=== PATIENT | female | born 1970 | race African-American/Black ===

== ENCOUNTER 2019-04-10 08:42 | Outpatient (CLI) | payer BC, SELFPAY ==
--- NOTE | 2019-04-10 08:49 | ECG_ITS ---
Measurements Intervals [place] Rate: 138 P: [place]: 0 QRS: 48 QRSD: 96 T: -10 QT: 312 QTc: 473 Interpretive Statements ATRIAL FIBRILLATION WITH RAPID VENTRICULAR RESPONSE CANNOT RULE OUT SEPTAL INFARCT, AGE INDETERMINATE BORDERLINE ST-T WAVE ABNORMALITY- INFERIOR LEADS BASELINE ARTIFACT- I ABNORMAL ECG Electronically Signed On 04-10-2019 10:29:47 [employer] by James Keller D.O.
[2019-04-10 09:44] LABS: Blood Urea Nitrogen 18 mg/dL (7-17); Calcium 9.5 mg/dL (8.4-10.2); Carbon Dioxide 30 mmol/L (22-30); Chloride 101 mmol/L (98-107); Estimated Glomerular Filt Rate > 60; Glucose 82 mg/dL (65-105); Potassium 3.5 mmol/L (3.4-5.0); Sodium 141 mmol/L (137-145)
== END 2019-04-10 08:43 | disposition home or self-care (01) ==
LOC: ANHSURGERY 08:49
PROVIDERS: Anesthesiology; PCP Family Medicine; Visit Provider Obstetrics & Gynecology
DX: N92.1 Excessive and frequent menstruation with irregular cycle (principal); Z79.899 Other long term (current) drug therapy; I10 Essential (primary) hypertension; R94.31 Abnormal electrocardiogram [ECG] [EKG]
CPT/HCPCS: 36415; 80048; 86850; 86900; 86901; 93005

== ENCOUNTER 2019-04-23 00:18 | Day surgery (SDC) | payer BC, SELFPAY ==
[2019-04-06 15:17] VITALS: BMI 34.2
[2019-04-23] VITALS (12 sets, daily range): BP systolic 94–134; BP diastolic 58–99; PULSE 54–89; RESP 12–20; TEMP 36.1–36.7; O2SAT 96–100
--- NOTE | 2019-04-23 10:50 | WPDANESEPPF ---
Anes - Initial Pre Proc Eval Procedure: Operation Date: 04/23/19 12:00 Proposed Procedures p Total Laparoscopic Hysterectomy With Bilateral Salpingectomy - Kira Vasquez MD Date/Time: 04/23/19 10:50 Surgeon: Kira Vasquez MD Pre Op Diagnosis: Menometrorrhagia/ Uterine Fibroids Patient Data Age: 49 Gender: F Height: 5 ft 11 in Weight: 113.4 kg Last Vital Signs Temp 36.6 C 04/23/19 10:23 Pulse 89 04/23/19 10:23 Resp 20 04/23/19 10:23 BP 134/99 H 04/23/19 10:23 Pulse Ox 100 04/23/19 10:23 Allergies Allergy/AdvReac Type Severity Reaction Status Date / Time No Known Allergies Allergy Verified 04/23/19 10:21 Home Medications Medication Instructions Recorded Confirmed Type amlodipine 5 mg PO DAILY 04/06/19 04/23/19 History lisinopril-hydrochlorothiazide 1 tablet PO DAILY 04/06/19 04/23/19 History Patient hx anesthesia problems: none Family hx anesthesia problems: none PMFSH Past Medical History Medical History Hypertension Obesity YAQUELIN (obstructive sleep apnea) Social History Social History Gender identity (if verbalized by the patient): Female Anes - Eval Final PreProcedure Day of Procedure 04/23/19 10:50 Patient weight: obese Heart: regular rate and rhythm Lungs: clear to auscultation Airway: Mallampati scale class II Neurological: alert and oriented Last oral intake: >/= 8 hours ASA classification: III Emergent: no Anesthetic plan: proceed Anesthesia type and monitoring: general ETT and standard monitoring Informed Consent: The patient's anesthetic plan and its attendant risks and benefits were discussed with the patient/family/POA. Questions were solicited and answers provided to the satisfaction of the patient/family/POA.
[2019-04-23] MEDS: LACTATED RINGERS 1,000 ML 30 ML IV CONT ×2 (10:56→14:45)
--- NOTE | 2019-04-23 12:02 | WPDHPUPDATE1 ---
History and Physical Update Update Date/Time: 04/23/19 12:02 History and Physical has been reviewed, including an updated exam of the patient. There are NO changes in the patient's condition. Risks, benefits, and alternatives have been discussed and questions answered. Patient agrees to proceed with procedure.
[2019-04-23] MEDS: ceFAZolin 2 GM/D5W 50 ML 2 GM/50 ML BAG IVPB (12:07)
[2019-04-23] MEDS: BUPIVACAINE/EPINEPHRINE 0.5% 10 ML VIAL INFILTRATE (12:54)
--- NOTE | 2019-04-23 14:26 | PM.OP ---
Procedure Note - Brief Procedure Note - Brief Date of procedure: 04/23/19 Pre-op diagnosis: Menometrorrhagia/ Uterine Fibroids Post-op diagnosis: same Procedure performed: TLH / bilateral salpingectomy Anesthesia: GETA Surgeon: Kira Vasquez MD Estimated blood loss (mL): 50 Drains: Yes ([place]) Pathology: yes Complications: No immediate complications Condition: stable Disposition: PACU Findings: Enlarged fibroid uterus; normal tubes, ovaries, appendix, liver, gall bladder
--- NOTE | 2019-04-23 14:27 | SUR.OPER ---
[id number]
--- NOTE | 2019-04-23 15:27 | SUR.PHASEI ---
[id number] sbar faxed floor notified. family apdated, and sent to room
--- NOTE | 2019-04-23 15:37 | OP_ITS ---
DATE OF PROCEDURE: 04/23/2019 PREOPERATIVE DIAGNOSES: Menometrorrhagia, fibroids. POSTOPERATIVE DIAGNOSES: Menometrorrhagia, fibroids. PROCEDURE PERFORMED: Total laparoscopic hysterectomy, bilateral salpingectomy. ANESTHESIA: General endotracheal tube. ESTIMATED BLOOD LOSS: 50 mL. COMPLICATIONS: None. FINDINGS: Enlarged fibroid uterus. Normal tubes, ovaries, liver, gallbladder, appendix. No significant pelvic adhesions. INDICATIONS: A 49-year-old with history of heavy irregular periods. She was found to have enlarged uterus with at least 1 fibroid measuring 6 cm. She was advised to proceed with hysterectomy and she did sign consent after the risks, benefits, complications, and alternatives were discussed for total laparoscopic hysterectomy with bilateral salpingectomy. DESCRIPTION OF PROCEDURE: For the procedure, she was taken to the operating room where general anesthesia was obtained. She was prepared and draped in the normal sterile fashion in the dorsal lithotomy position. Marcaine was injected infraumbilically and a 5 mm skin incision was made in the infraumbilical fold with a scalpel. A 5 mm non-bladed trocar was then placed with the camera in the trocar under direct visualization into the peritoneal cavity. Insufflation was begun and she was placed in Trendelenburg. A 10 mm trocar was then placed in the right lower quadrant under direct visualization and a 5 mm trocar in the left lower quadrant. Inspection of the pelvis revealed the findings as noted above. First, the right cornua was grasped. The right fallopian tube was grasped and transected near the insertion to the uterus. The right round ligament was transected and the bladder flap was created from the right side. The left fallopian tube was then transected near its insertion to the uterus, then the left round ligament. The bladder flap was created from the left meeting the flap from the right and the bladder was pushed down further with a laparoscopic Kittner. The left uterine artery was skeletonized, clamped, coagulated, and transected with excellent hemostasis visualized. Another couple of bites were taken down the broad ligament until the level of the uterosacral ligament had been reached. The right uterine artery was then skeletonized, clamped, coagulated, and transected and a couple of bites were taken down the broad ligament until the level of the uterosacral ligament had been reached. Both uterosacral ligaments were then divided. A sponge stick was placed in the vagina and pressed against the anterior cul-de-sac and a colpotomy incision was made against it using the Harmonic Scalpel. The vagina was then circumferentially incised hugging the cervix until the uterus was completely removed from the surrounding vaginal tissue. The uterus was pressed down as much as possible into the vaginal canal. Attention was then turned to the vagina where a speculum was placed. The uterus was grasped and traction was placed until the uterus was delivered through the vagina. A moist blue towel was then placed in the vagina to hold the pneumoperitoneum. Attention was then turned back to the abdomen. The right fallopian tube was grasped. The mesosalpinx was serially clamped and transected and then the same procedure was performed to remove the left fallopian tube. The pelvis was copiously irrigated. All operative sites were found to be hemostatic. The vaginal cuff was then closed using 0 Vicryl interrupted sutures placed laparoscopically. All operative sites were inspected once again and found to be hemostatic so the right lower quadrant trocar was removed. The Pravin-Yanira device was used along with a 0 Vicryl to close the fascia of the right lower quadrant incision. The pneumoperitoneum was allowed to escape. All trocars were rem
[2019-04-23] MEDS: ENOXAPARIN 40 MG/0.4 ML SYRINGE SUB-Q (20:46)
[2019-04-24 00:25] VITALS: BP 117/73; PULSE 66; RESP 17; TEMP 36.9
[2019-04-24 05:09] LABS: Basophils Percent Auto 0.1 % (0.2-1.2); Eosinophils Percent Auto 0.1 % (0-4.4); Hematocrit 32.7 % (37.0-47.0); Hemoglobin 10.6 g/dL (12.0-15.0); Immature Granulocyte Absolute 0.03 K/mm3 (0.00-0.031); Immature Granulocyte Percent A 0.2 % (0-0.5); Lymphocytes Absolute Auto 1.72 K/mm3 (0.9-3.2); Mean Corpuscular HGB Conc 32.4 g/dl (32-36); Mean Corpuscular Volume 83.4 fl (80-100); Mean Platelet Volume 9.3 fl (7.4-10.4); Monocytes Absolute Auto 0.8 K/mm3 (0.1-0.6); Monocytes Percent Auto 5.8 % (2.6-8.5); Neutrophils Absolute Auto 10.7 K/mm3 (1.3-6.7); Neutrophils Percent Auto 80.8 % (45.5-73.1); Platelet Count Result 354 k/mm3 (150-375); Red Blood Count 3.92 M/mm3 (4.2-5.4); Red Cell Distribution Width 16.8 % (11.5-14.5); White Blood Count 13.2 K/mm3 (4.5-10.0)
[2019-04-24 05:22] LABS: Blood Urea Nitrogen 15 mg/dL (7-17); Calcium 8.9 mg/dL (8.4-10.2); Carbon Dioxide 29 mmol/L (22-30); Chloride 96 mmol/L (98-107); Estimated CRCL calculation 83 ml/min; Estimated Glomerular Filt Rate > 60; Glucose 112 mg/dL (65-105); Potassium 3.2 mmol/L (3.4-5.0); Sodium 137 mmol/L (137-145)
[2019-04-24 05:25] VITALS: BP 129/70; PULSE 77; RESP 16; TEMP 36.8
--- NOTE | 2019-04-24 07:48 | PM.GYNPNOP ---
SALES VENDOR - A/P Postoperative Procedures: Procedures Operation Date: 04/23/19 12:00 Actual Procedures Side Surgeon p Total Laparoscopic Hysterectomy With Bilateral Salpingectomy Not Applicable Kira Vasquez MD Postoperative day: 1 (s/p hysterectomy) Postoperative status: doing well Postoperative plan: routine post-op care and discharge (and follow up in office in 1 week) Time Spent With Patient Time: Total time spent is greater than 50% in coordination of care (as documented) at patient's floor/unit and/or counseling patient: Time with patient: less than 15 minutes SALES VENDOR- PN:Subj Post-Op Subjective Date/time seen: 04/24/19 07:48 Subjective: patient has no complaints, pain is well controlled and other (Tolerating regular diet. + flatus. No void yet) Review of Systems Review of Systems: All systems reviewed & are unremarkable except as noted in HPI and below Exam Const: General: no acute distress Resp: Auscultation: clear to auscultation bilaterally Cardio: Rate: regular rate Rhythm: regular rhythm GI: Inspection: non-distended and incision (Intact without erythema, drainage, or induration) GI Palp: Yes abdominal tenderness (appropriate) and Yes Soft to palpation Extrem: General: no edema SALES VENDOR - PN: Obj Data Vital Signs Vital Signs: Vital Signs - 24 hr 04/23/19 10:23 04/23/19 14:35 04/23/19 14:50 Temperature 36.6 C 36.1 C L Pulse Rate 89 64 55 L Respiratory Rate 20 16 12 Blood Pressure 134/99 H 108/66 101/65 Pulse Oximetry 100 100 100 04/23/19 15:06 04/23/19 15:20 04/23/19 16:00 Temperature 36.7 C Pulse Rate 54 L 60 59 L Respiratory Rate 14 12 14 Blood Pressure 98/62 L 102/58 L 94/59 L Pulse Oximetry 98 100 04/23/19 16:15 04/23/19 16:30 04/23/19 17:00 Temperature Pulse Rate 64 66 62 Respiratory Rate 14 14 14 Blood Pressure 99/69 L 105/58 L 104/60 Pulse Oximetry 04/23/19 18:00 04/23/19 19:00 04/23/19 20:40 Temperature 36.7 C 36.7 C Pulse Rate 71 79 79 Respiratory Rate 14 17 Blood Pressure 111/59 L 107/65 101/60 Pulse Oximetry 96 04/24/19 00:25 04/24/19 05:25 Temperature 36.9 C 36.8 C Pulse Rate 66 77 Respiratory Rate 17 16 Blood Pressure 117/73 129/70 Pulse Oximetry Intake/Output Intake/Output: Intake & Output 04/21/19 04/22/19 04/23/19 04/24/19 23:59 23:59 23:59 23:59 Intake Total 1700 1000 Output Total 90 700 Balance 1610 300 Meds/Results Medications: Active Medications Generic Name Dose Route Start Last Admin Trade Name Freq PRN Reason Stop Dose Admin Hydrocodone Bitart/Acetaminophen 1 tab 04/23/19 15:35 Almond 5-325 Mg PO Q3H PRN Pain Rated 5 or Less Hydrocodone Bitart/Acetaminophen 1 tab 04/23/19 15:35 Almond 10-325 Mg PO Q3H PRN Pain Rated 6 or Greater Amlodipine Besylate 5 mg 04/24/19 09:00 Norvasc PO DAILY [facility] Enoxaparin Sodium 40 mg 04/23/19 20:00 04/23/19 20:46 Lovenox SUB-Q 40 mg DAILY [facility] Administration Hydrochlorothiazide 25 mg 04/24/19 09:00 Hydrochlorothiazide PO QAM [facility] Dextrose/Lactated Ringer's 1,000 mls @ 125 mls/hr 04/23/19 15:35 Dextrose 5%/Lactated Ringers IV CONT .Q8H [facility] Ibuprofen 600 mg 04/23/19 15:35 Motrin PO Q6H PRN Cramping Ketorolac Tromethamine 30 mg 04/23/19 15:35 Toradol Inj IV PUSH 04/28/19 15:36 Q6H PRN Pain Rated 4-6 Lisinopril 20 mg 04/24/19 09:00 Prinivil PO QAM [facility] Metoclopramide HCl 10 mg 04/23/19 15:35 Reglan IV PUSH Q6H PRN Nausea Morphine Sulfate 4 mg 04/23/19 15:35 Morphine Sulfate Inj IV PUSH Q4H PRN Pain Rated 7-10 Naloxone HCl 0.1 mg 04/23/19 15:35 Narcan IV PUSH Q2M PRN Respiratory rate less than 10 Ondansetron HCl 4 mg 04/23/19 15:35 Zofran Inj IV PUSH Q6H PRN Nausea Simethicone 80 mg 04/23/19 15:35 Mylicon PO Q2H PRN Gas Labs CBC & Chem 7: 04/24/19 05:03
[2019-04-24 07:50] VITALS: BP 134/87; PULSE 75; RESP 16; TEMP 37.2; O2SAT 97
[2019-04-24] MEDS: AMLODIPINE BESYLATE 5 MG TABLET PO (09:26)
[2019-04-24] MEDS: hydroCHLOROthiazide 25 MG TABLET PO (09:26)
[2019-04-24] MEDS: SIMETHICONE 80 MG TAB.CHEW PO ×2 (09:27→11:58)
[2019-04-24] MEDS: lisinopriL 20 MG TABLET PO (09:27)
--- NOTE | 2019-04-24 09:44 | WPDANESPN ---
Anes - Prog Note Post-Op Date/Time: 04/24/19 09:44 Cardiovascular status: normal Respiratory status: normal Airway patency: baseline Mental status: baseline Post-Op hydration status: normal Vital Signs: Last Vital Signs Temp 37.2 C 04/24/19 07:50 Pulse 75 04/24/19 07:50 Resp 16 04/24/19 07:50 BP 134/87 04/24/19 07:50 Pulse Ox 97 04/24/19 07:50 I/O: Intake & Output 04/23/19 04/24/19 04/24/19 23:59 07:59 15:59 Intake Total 1000 Output Total 700 Balance 300 Laboratory Tests 04/24/19 05:03 04/24/19 05:03 04/24/19 04/24/19 05:03 05:03 WBC 13.2 H RBC 3.92 L Hgb 10.6 L Hct 32.7 L MCV 83.4 MCH 27.0 MCHC 32.4 RDW 16.8 H Plt Count 354 MPV 9.3 Immature Gran % (Auto) 0.2 Neut % (Auto) 80.8 H Lymph % (Auto) 13.0 L [place] % (Auto) 5.8 Eos % (Auto) 0.1 Baso % (Auto) 0.1 L Lymph # (Auto) 1.72 [place] # (Auto) 0.8 H Eos # (Auto) 0.0 Baso # (Auto) 0.0 Abs Immat Gran (auto) 0.03 Absolute Neuts (auto) 10.7 H Absolute Nucleated RBC 0.0 Nucleated RBC % 0.0 Sodium 137 Potassium 3.2 L Chloride 96 L Carbon Dioxide 29 BUN 15 Creatinine 1.00 Estim Creat Clear Calc 83 Estimated GFR > 60 Glucose 112 H Calcium 8.9 Post-procedural complaints: none Patient Feedback: Patient satisfied with anesthetic care.
[2019-04-24 11:20] VITALS: BP 134/74; PULSE 94; RESP 18; TEMP 37.8; O2SAT 94
[2019-04-24 13:19] VITALS: TEMP 36.9
== END 2019-04-24 16:42 | disposition home or self-care (01) ==
LOC: ANHSURGERY 09:51 → ANHOB2 15:40
PROVIDERS: PCP Family Medicine; Visit Provider Obstetrics & Gynecology
PROC: 0UT9FZZ Resection of Uterus, Via Natural or Artificial Opening With Percutaneous Endoscopic Assistance (ICD-10-PCS; CPT 58552; principal; 2019-04-23 12:00)
DX: N92.1 Excessive and frequent menstruation with irregular cycle (principal); N72 Inflammatory disease of cervix uteri; D25.1 Intramural leiomyoma of uterus; N85.8 Other specified noninflammatory disorders of uterus; N83.8 Other noninflammatory disorders of ovary, fallopian tube and broad ligament; I10 Essential (primary) hypertension; G47.33 Obstructive sleep apnea (adult) (pediatric); E66.9 Obesity, unspecified; Z68.34 Body mass index [BMI] 34.0-34.9, adult
CPT/HCPCS: 58552; 36415; 80048; 85025; 88307; 99199; A9270; J0690; J1650; J2250; J2270; J2405; J2704; J2710; J3010; J7030; J7120

== ENCOUNTER 2020-09-20 10:59 | Inpatient (IN) | payer BC, SELFPAY ==
[2020-09-20] VITALS (17 sets, daily range): BP systolic 120–172; BP diastolic 80–128; PULSE 99–137; RESP 16–24; TEMP 36.3–37.2; O2SAT 96–99; BMI 34.7
--- NOTE | ~2020-09-20 | XR_ITS ---
EXAMINATION: XR chest 1V portable INDICATION: Cough and shortness of breath TECHNIQUE: Portable AP chest at 1139 hours COMPARISON: None available FINDINGS: Patchy bilateral airspace opacities are present, right greater than left. There is no pleur al effusion or pneumothorax. The cardiomediastinal silhouette is normal. IMPRESSION: 1. Patchy bilateral airspace opacities, consistent with atelectasis versus pneumonia. Reviewed, dictated and finalized at location A. IMPRESSION: 1. Patchy bilateral airspace opacities, consistent with atelectasis versus pneu monia.
--- NOTE | ~2020-09-20 | CT_ITS ---
EXAMINATION: CTA chest PE protocol DATE: 09/20/2020 13:29 INDICATION: Shortness of breath and cough TECHNIQUE: Computed tomography angiography (CTA) of the chest was performed with 100 mL Omnipaque-350 intravenous contrast timed to evaluate the pulmonary arteries. Coronal maximum intensity projection 3D-reconstructions were created by the technologist. The dose-length product (DLP) was 708.41 mGy-cm. Automated exposure control and iterative reconstruction technique were employed. COMPARISON: None. FINDINGS: The pulmonary arteries are well-opacified. No pulmonary embolism is identified. There is sm all to moderate size right pleural effusion. There is a small left pleural effusion. There is mild pa ssive atelectasis of the lower lobes. Mild atelectasis is also noted in the right middle lobe and floyd gula. There is no pneumothorax. Cardiomegaly is noted. There are areas of smooth interlobular septal thickening. There is mild thoracic spondylosis. No pathologically enlarged thoracic lymph nodes are s een. IMPRESSION: 1. No pulmonary embolism identified. 2. Small to moderate-sized right and small left pleural effusions. 3. Cardiomegaly with mild pulmonary edema. Reviewed, dictated and finalized at location A.
--- NOTE | 2020-09-20 11:09 | ECG_ITS ---
Measurements Intervals [place] Rate: 143 P: [place]: 0 QRS: 82 QRSD: 89 T: 35 QT: 324 QTc: 500 Interpretive Statements ATRIAL FIBRILLATION WITH RAPID VENTRICULAR RESPONSE ANTEROSEPTAL INFARCT, AGE INDETERMINATE BORDERLINE T WAVE ABNORMALITY- HIGH LATERAL LEADS BASELINE ARTIFACT- I, II, AVR, AVL, AVF ABNORMAL ECG Electronically Signed On 09-20-2020 12:05:14 CDT by James Keller D.O.
--- NOTE | 2020-09-20 11:34 | ED.GENADULT ---
HPI - General Adult General Chief complaint: Upper Respiratory Infection Stated complaint: cough Time Seen by Provider: 09/20/20 11:20 Source: patient and RN notes reviewed Mode of arrival: ambulatory Limitations: no limitations History of Present Illness HPI narrative: This is a 50 year old female with history of hypertension who presents for evaluation of cough and atrial fibrillation. Patient reports she has had nonproductive cough for 2 weeks. She also reports chest congestion and chest tightness. She reports she only has chest tightness when she is coughing. She is also short of breath only when she is having coughing spell. She tested negative for covid 6 days ago. She denies fever, chills, vomiting, diarrhea, abdominal pain, sore throat or headache. She went to [facility] today for evaluation. She reports she was found to have pneumonia on chest xray and her EKG revealed atrial fibrillation. She denies prior history of atrial fibrillation. She denies heart palpitations or fast heart rate. She denies leg swelling or calf pain. She takes antihypertensives and baby aspirin. Related Data Home Medications Medication Instructions Recorded Confirmed amlodipine 5 mg PO DAILY 04/06/19 09/20/20 hydrochlorothiazide 50 mg PO DAILY 09/20/20 09/20/20 losartan 100 mg PO DAILY 09/20/20 09/20/20 multivit with min-folic acid 1 tablet PO DAILY 09/20/20 09/20/20 [[facility]] Allergies Allergy/AdvReac Type Severity Reaction Status Date / Time No Known Allergies Allergy Verified 09/20/20 11:27 Review of Systems Review of Systems: All systems reviewed & are unremarkable except as noted in HPI and below Constitutional: Constitutional: Denies chills and Denies fever(s) Cardiovascular: Cardiovascular: Reports chest pain, Reports rapid heart rate and Denies radiating jaw, neck or arm pain Respiratory: Respiratory: Reports cough, Reports dyspnea and Denies wheezing Gastrointestinal: Gastrointestinal: Denies abdominal pain, Denies diarrhea, Reports nausea and Denies vomiting Neurologic: Denies dizziness and Denies headache(s) [facility] Past Medical History Medical History (Updated 09/20/20 @ 18:04 by Charo Causey MD) Admission for tubal ligation Hypertension Hypertension Miscarriage Obesity YAQUELIN (obstructive sleep apnea) Surgical History Surgical History H/O dilation and curettage H/O: hysterectomy [place] teeth removed Family History Family History Other Carcinoma of colon Other Cerebrovascular accident Sibling Diabetes mellitus Mother Hypertension Social History Social History (Updated 09/20/20 @ 17:14 by Vicki Lazcano NP) Social History: 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 She is single and has 1 child. She is a lifelong nonsmoker. She rarely drinks alcohol. She does not have a durable power trademark attorney. the patient is listed as a full code. Smoking status: Never smoker Alcohol intake: current Drinks per week: 1 Substance use: never Last use: occasionally Gender identity (if verbalized by the patient): Female Spiritual care concerns: No Exam Const: General: no acute distress and alert Orientation/consciousness: patient oriented x3 Eyes: EOM: EOMs intact bilaterally Chest: Chest palpation & inspection: normal inspection of the chest Resp: Effort & Inspection: normal respiratory effort and no retractions Auscultation: clear to auscultation bilaterally Cardio: Rate: tachycardic Rhythm: abnormal rhythm irregularly irregular Heart sounds: no murmurs GI: GI Palp: Yes Soft to palpation, No Tenderness to palpation present (GI) and No Guarding due to palpation present (GI) Auscultation: normal bowel sounds Skin: General skin exam: normal color Rashes: no rashes Neuro: General: patient oriented x3, moves all extremit
[2020-09-20] MEDS: dilTIAZem HCl INJ 25 MG/5 ML VIAL 10 MG IV PUSH (11:45)
[2020-09-20 11:50] LABS: Basophils Absolute Auto 0.1 K/mm3 (0.0-0.1); Basophils Percent Auto 0.6 % (0.2-1.2); Eosinophils Absolute Auto 0.1 K/mm3 (0-0.3); Eosinophils Percent Auto 0.7 % (0-4.4); Hematocrit 40.5 % (37.0-47.0); Hemoglobin 12.8 g/dL (12.0-15.0); Immature Granulocyte Absolute 0.02 K/mm3 (0.00-0.031); Immature Granulocyte Percent A 0.2 % (0-0.5); Lymphocytes Absolute Auto 2.44 K/mm3 (0.9-3.2); Lymphocytes Percent Auto 25.3 % (18.3-44.2); Mean Corpuscular HGB Conc 31.6 g/dl (32-36); Mean Corpuscular Hemoglobin 28.4 pg (26-34); Mean Platelet Volume 9.6 fl (7.4-10.4); Monocytes Absolute Auto 0.6 K/mm3 (0.1-0.6); Monocytes Percent Auto 6.5 % (2.6-8.5); Neutrophils Absolute Auto 6.4 K/mm3 (1.3-6.7); Neutrophils Percent Auto 66.7 % (45.5-73.1); Platelet Count Result 393 k/mm3 (150-375); Red Cell Distribution Width 14.2 % (11.5-14.5); White Blood Count 9.6 K/mm3 (4.5-10.0)
[2020-09-20 11:59] LABS: Anion Gap 8 mmol/L (8-16); Blood Urea Nitrogen 14 mg/dL (7-17); Calcium 9.4 mg/dL (8.4-10.2); Carbon Dioxide 27 mmol/L (22-30); Chloride 106 mmol/L (98-107); Estimated CRCL calculation 75 ml/min; Estimated Glomerular Filt Rate > 60; Glucose 101 mg/dL (65-110); Potassium 3.2 mmol/L (3.4-5.0); Sodium 141 mmol/L (137-145)
[2020-09-20 12:01] LABS: Prothrombin Time 13.1 Seconds (11.1-14.7)
[2020-09-20 12:02] LABS: Alanine Aminotransferase 40 U/L (4-35); Albumin Level 4.2 g/dL (3.5-5.1); Alkaline Phosphatase 95 U/L (38-126); Aspartate Amino Transferase 34 U/L (14-36); Bilirubin,Total 0.8 mg/dL (0.2-1.3); CRP 0.7 mg/dL (<1.0); Partial Thromboplastin Time 29.3 SECONDS (22.3-36.8)
[2020-09-20 12:05] LABS: D Dimer 0.62 ug/mL (<0.48)
[2020-09-20 12:12] LABS: NT Pro B Type Natriuretic Pept 1450 pg/mL (5-100); Troponin I < 0.012 ng/mL (0.000-0.034)
[2020-09-20] MEDS: FUROSEMIDE INJ 40 MG/4 ML VIAL IV PUSH (15:14)
[2020-09-20] MEDS: ENOXAPARIN 120 MG/0.8 ML SYRINGE 115 MG SUB-Q (15:14)
[2020-09-20] MEDS: POTASSIUM CHLORIDE 20 MEQ TABLET 40 MEQ PO (15:22)
--- NOTE | 2020-09-20 17:00 | ADMGEN ---
This patient, Antonella Lugo, was admitted to IMU Room 209-01. Patient/family oriented to hospital policies and general routines including ID bracelet, bed and alarms, visiting hours, pain management, procedures, bathroom and other care routines, personal items, smoking policy, room service/diet, and visiting hours. Information on how to activate the Rapid Response Team has been discussed. Patient/Family are encouraged to report perceived risks to care and to ask questions if they do not understand what they are told or what they should do.
--- NOTE | 2020-09-20 17:02 | PM.IMHP ---
H&P: HPI History of Present Illness Date/Time: 09/20/20 17:02Thilaura is a 50-year-old female patient has a history of hypertension. The patient states that she does not always take her medication like she should that her blood pressure may be higher than normal. The patient has had a productive cough for last 2 weeks. She has had no previous history of congestive heart failure heart disease. The patient reports that she now has chest congestion and chest tightness. She has not had any fever chills just a coughing. She short of breath when she has is coughing spell. The patient has had her complete COVID 19 vaccine. The patient tested negative for COVID-19 6 days ago. Patient went to urgent care today and she reports that they found pneumonia on the chest x-ray near EKG revealed atrial fibrillation. The patient stated that she felt like she had been in atrial fibrillation before when she had her hysterectomy. After reviewing the EKG from 04/10/2019 it looks like she had AFib with rapid ventricular response at that time. The patient is having no chest pain at this time. Her BNP is 1450. Chest CTA no pulmonary emboli small to moderate size right and small left pleural effusions. Cardiomegaly with mild pulmonary edema. Chest x-ray patchy bilateral airspace opacities consistent with atelectasis versus pneumonia. D-dimer 0.62. Potassium 3.2. Creatinine 1.1. BNP 1450. The patient was started on a Cardizem drip and given IV Lasix. She was also given subcu Lovenox and a potassium pill for the low potassium. Cardiology has been consulted. She is being admitted to IMU observation status on the date of service 09/20/2020. Chief Complaint: cough Review of Systems Review of Systems: All systems reviewed & are unremarkable except as noted in HPI and below Constitutional: Constitutional: Reports as per HPI and Reports no additional constitutional complaints Eyes: Eyes: Reports as per HPI and Reports no additional eye complaints ENT: Reports system reviewed and no additional complaints, except as documented and Reports Normal hearing present Cardiovascular: Cardiovascular: Reports no additional cardiovascular complaints Respiratory: Respiratory: Reports no additional respiratory complaints and Reports no additional respiratory complaints Gastrointestinal: Gastrointestinal: Reports as per HPI and Reports no additional gastrointestinal complaints Musculoskeletal: Musculoskeletal: Reports no additional musculoskeletal complaints Integumentary/Breasts: Skin/Breast: Reports system reviewed and no additional complaints, except as docu and Reports as per HPI Neurologic: Reports system reviewed and no additional complaints, except as documented, Reports as per HPI and Reports Normal hearing present Psychiatric: Psychiatric: Reports no additional psychiatric complaints and Reports as per HPI Endocrine: Endocrine: Reports no additional endocrine complaints Hematologic/Lymphatic: Hematologic/Lymphatic: Reports no additional hematologic/lymphatic complaints Allergic/Immunologic: Allergic/Immunologic: Reports no additional allergic/immunologic complaints [facility] Past Medical History Medical History (Updated 09/20/20 @ 17:11 by Vicki Lazcano NP) Admission for tubal ligation Hypertension Hypertension Miscarriage Obesity YAQUELIN (obstructive sleep apnea) Surgical History Surgical History H/O dilation and curettage H/O: hysterectomy [place] teeth removed Family History Family History Other Carcinoma of colon Other Cerebrovascular accident Sibling Diabetes mellitus Mother Hypertension Social History Social History (Updated 09/20/20 @ 17:14 by Vicki Lazcano NP) Social History: 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 She is single and has 1 child. She is a lifelong nonsmoker. She rarely drinks alcohol. She does not
[2020-09-21] VITALS (24 sets, daily range): BP systolic 117–132; BP diastolic 67–96; PULSE 66–111; RESP 11–20; TEMP 36.1–37; O2SAT 94–100
[2020-09-21] MEDS: ENOXAPARIN 120 MG/0.8 ML SYRINGE 115 MG SUB-Q ×2 (03:41→18:36)
[2020-09-21 05:21] LABS: Basophils Percent Auto 0.5 % (0.2-1.2); Eosinophils Absolute Auto 0.1 K/mm3 (0-0.3); Eosinophils Percent Auto 1.8 % (0-4.4); Hematocrit 38.9 % (37.0-47.0); Hemoglobin 12.6 g/dL (12.0-15.0); Immature Granulocyte Absolute 0.02 K/mm3 (0.00-0.031); Immature Granulocyte Percent A 0.3 % (0-0.5); Lymphocytes Absolute Auto 2.51 K/mm3 (0.9-3.2); Lymphocytes Percent Auto 32.3 % (18.3-44.2); Mean Corpuscular HGB Conc 32.4 g/dl (32-36); Mean Corpuscular Hemoglobin 28.5 pg (26-34); Mean Platelet Volume 9.8 fl (7.4-10.4); Monocytes Absolute Auto 0.5 K/mm3 (0.1-0.6); Monocytes Percent Auto 6.7 % (2.6-8.5); Neutrophils Absolute Auto 4.6 K/mm3 (1.3-6.7); Neutrophils Percent Auto 58.4 % (45.5-73.1); Platelet Count Result 381 k/mm3 (150-375); Red Blood Count 4.42 M/mm3 (4.2-5.4); Red Cell Distribution Width 14.1 % (11.5-14.5); White Blood Count 7.8 K/mm3 (4.5-10.0)
[2020-09-21 05:33] LABS: Alanine Aminotransferase 41 U/L (4-35); Albumin Level 3.9 g/dL (3.5-5.1); Alkaline Phosphatase 90 U/L (38-126); Anion Gap 7 mmol/L (8-16); Aspartate Amino Transferase 41 U/L (14-36); Bilirubin,Total 0.8 mg/dL (0.2-1.3); Blood Urea Nitrogen 13 mg/dL (7-17); Calcium 9.3 mg/dL (8.4-10.2); Carbon Dioxide 29 mmol/L (22-30); Chloride 104 mmol/L (98-107); Estimated CRCL calculation 82 ml/min; Estimated Glomerular Filt Rate > 60; Glucose 99 mg/dL (65-110); Magnesium 2.1 mg/dL (1.6-2.3); Potassium 3.2 mmol/L (3.4-5.0); Sodium 140 mmol/L (137-145)
--- NOTE | 2020-09-21 07:57 | PM.IMPN ---
Progress Note: A&P Assessment and Plan (1) Pulmonary edema: Code(s): J81.1 - Chronic pulmonary edema Status: Acute Assessment and Plan: Continue with IV Lasix. An echo has been ordered. Cardiology consult has been placed. (2) Atrial fibrillation with RVR: Code(s): I48.91 - Unspecified atrial fibrillation Status: Acute Assessment and Plan: Continue with diltiazem drip and continue with Lovenox. Echo has been ordered. Cardiology has been consulted (3) YAQUELIN (obstructive sleep apnea): Code(s): G47.33 - Obstructive sleep apnea (adult) (pediatric) Status: Acute Assessment and Plan: auto titrate for home CPAP (4) Hypertension: Code(s): I10 - Essential (primary) hypertension Status: Acute Assessment and Plan: continue with amlodipine losartan and hydrochlorothiazide. Subjective Date/time seen: 09/21/20 07:57 Review of Systems Review of Systems: All systems reviewed & are unremarkable except as noted in HPI and below Objective Data Vital Signs Vital Signs: Vital Signs - 24 hr 09/20/20 11:20 09/20/20 11:46 09/20/20 11:48 Temperature 37.2 C Pulse Rate 129 H 137 H 121 H Respiratory Rate 16 20 Blood Pressure 172/128 H 162/112 H 162/112 H Pulse Oximetry 98 98 09/20/20 12:10 09/20/20 12:44 09/20/20 13:42 Temperature 36.3 C L Pulse Rate 106 H 106 H 115 H Respiratory Rate 20 20 24 H Blood Pressure 130/112 H 120/100 H 151/103 H Pulse Oximetry 99 98 98 09/20/20 14:36 09/20/20 15:54 09/20/20 16:13 Temperature Pulse Rate 109 H 104 H 106 H Respiratory Rate 16 20 20 Blood Pressure 156/107 H 153/115 H 141/101 H Pulse Oximetry 99 98 99 09/20/20 16:21 09/20/20 18:00 09/20/20 18:26 Temperature 36.5 C Pulse Rate 109 H 118 H 108 H Respiratory Rate 20 20 Blood Pressure 141/101 H 151/100 H Pulse Oximetry 98 96 09/20/20 20:00 09/20/20 22:00 09/20/20 22:09 Temperature 36.3 C L Pulse Rate 99 110 H 107 H Respiratory Rate 20 Blood Pressure 128/85 Pulse Oximetry 96 09/20/20 23:18 09/20/20 23:40 09/21/20 00:00 Temperature 36.4 C Pulse Rate 105 H 112 H 108 H Respiratory Rate 18 20 Blood Pressure 124/80 Pulse Oximetry 97 98 09/21/20 02:00 09/21/20 03:54 09/21/20 04:00 Temperature 36.1 C L Pulse Rate 104 H 103 H 100 Respiratory Rate 18 Blood Pressure 131/94 H Pulse Oximetry 100 09/21/20 04:13 09/21/20 06:00 09/21/20 06:11 Temperature Pulse Rate 66 93 100 Respiratory Rate 11 L Blood Pressure Pulse Oximetry 96 09/21/20 07:01 Temperature 36.2 C L Pulse Rate 104 H Respiratory Rate 20 Blood Pressure 132/96 H Pulse Oximetry 100 Intake/Output Intake/Output: Intake & Output 09/18/20 09/19/20 09/20/20 09/21/20 23:59 23:59 23:59 23:59 Intake Total 430 Output Total 550 Balance 430 -550 Meds/Results Medications: Active Medications Generic Name Dose Route Start Last Admin Trade Name Freq PRN Reason Stop Dose Admin Amlodipine Besylate 5 mg 09/21/20 09:00 Amlodipine Besylate 5 Mg Tablet PO DAILY IAN Enoxaparin Sodium 115 mg 09/21/20 04:00 09/21/20 03:41 Enoxaparin 120 Mg/0.8 Ml Syringe SUB-Q 115 mg Q12H IAN Administration Furosemide 40 mg 09/21/20 09:00 Furosemide Inj 40 Mg/4 Ml Vial IV PUSH DAILY IAN Hydrochlorothiazide 50 mg 09/21/20 09:00 Hydrochlorothiazide 25 Mg Tablet PO DAILY IAN Acetaminophen 1,000 mg in 100 mls @ 400 mls/hr 09/20/20 15:25 Ofirmev 1,000 Mg Ivpb IVPB 09/21/20 15:26 Q6H PRN Mild Pain (1-3) or Fever Diltiazem HCl 100 mg in 100 mls @ 10 mls/hr 09/21/20 06:00 09/21/20 06:11 Cardizem 100 Mg/D5w 100 Ml IV CONT 10 mg/hr .Q10H IAN 10 mls/hr Administration 10 MG/HR Losartan Potassium 100 mg 09/21/20 09:00 Losartan Potassium 100 Mg Tablet PO DAILY IAN Multivitamins/Minerals 1 tablet 09/21/20 09:00 Multivits W-Fe,Min Chewable
--- NOTE | 2020-09-21 09:49 | PM.CNCAR ---
Assessment and Plan Assessment and plan (1) Atrial fibrillation with RVR: Code(s): I48.91 - Unspecified atrial fibrillation Status: Acute Assessment and Plan: Paroxysmal atrial fibrillation with rapid ventricular response presenting with evidence of mild decompensated heart failure diastolic possible systolic otherwise unaware of atrial fibrillation presenting with shortness of breath, elevated BNP, pulmonary vascular congestion on chest imaging. TSH 3.460. - atrial fibrillation 1st noted in setting of hysterectomy favor 2019. Patient did not have directed follow-up, medical therapy, anticoagulation nor did she see a station operator thereafter. Therefore, further details with regards to the initial episode and ultimate duration of her atrial fibrillation remain entirely unknown. She states she was unaware of her atrial fibrillation at that time as well. Discussed pathophysiology of atrial fibrillation, embolic stroke risk, medical management, MALLY guided cardioversion to restore sinus rhythm in context of rate versus rhythm control strategies. Patient agreeable to rhythm control with MALLY guided cardioversion likely with the assistance of Anesthesiology given YAQUELIN. Will need to ensure adequate heart failure status intolerance prior to proceeding.--MALLY/CV tomorrow likely with Anesthesiology if possible to restore SR. MALLY needed to rule out intracardiac thrombus prior to CV as duration of A.Fib unknown. We also discussed importance of longer-term systemic anticoagulation due to her stroke risk and recurrent atrial fibrillation moving for with oral anticoagulation. Will have care coordination rasmussen Eliquis or Xarelto. Least expensive option warfarin with goal INR of 2-3. -Telemetry -Will wean IV diltiazem off. Reduce to 5 milligrams/hour, initiate metoprolol tartrate 25 mg p.o. Q 8 our 1st dose now. Wean diltiazem his heart rate control up titration of metoprolol as BP and heart rate allows. -Systemic anticoagulation with enoxaparin 1 milligram/kilogram subcutaneous q.12 hours for now. Will transition to oral anticoagulation regimen. CHADS 2 Vasc score 2-3 (CHF if CM identified) Systemic anticoagulation advised for adequate stroke risk reduction given recurrent atrial fibrillation. Patient denies bleeding complications, recent falls or head injury or other contraindications. -If MALLY/CV may forego 2D Echo. Explained risks, benefits, alternatives to MALLY guided cardioversion including respiratory failure, stroke, aspiration. Patient understands and agrees. -Will need negative COVID swab prior to MALLY/CV. If +COVID, rate control strategy will be pursued. (2) CHF (congestive heart failure): Code(s): I50.9 - Heart failure, unspecified Status: Acute Assessment and Plan: As above, elevated BNP, pulmonary vascular congestion on chest x-ray and symptoms suggestive of CHF at presentation. Precise etiology unclear possible tachycardia induced cardiomyopathy due to longer duration uncontrolled AFib. IV Lasix 40 mg daily for now. Likely will be able to transition to oral regimen within the next 24 hours. (3) Hypokalemia: Code(s): E87.6 - Hypokalemia Status: Acute Assessment and Plan: Replete potassium, will give additional 40 mEq p.o. this a.m. for low potassium 3.2. Magnesium stable. Monitor daily to keep level around 4.0. (4) YAQUELIN (obstructive sleep apnea): Code(s): G47.33 - Obstructive sleep apnea (adult) (pediatric) Status: Acute Assessment and Plan: Compliance with CPAP. (5) Hypertension: Code(s): I10 - Essential (primary) hypertension Status: Acute Assessment and Plan: BP reasonably controlled. (6) Person under investigation for COVID-19: Code(s): Z20.822 - Contact with and (suspected) exposure to COVID-19 Status: Acute Assessment and Plan: Swab pending. Patient had Pfizer vaccination series in July, tested negative for COVID
[2020-09-21] MEDS: FUROSEMIDE INJ 40 MG/4 ML VIAL IV PUSH (10:37)
[2020-09-21] MEDS: MULTIVITS W-FE,MIN CHEWABLE TABLET 1 TABLET PO (10:38)
[2020-09-21] MEDS: hydroCHLOROthiazide 25 MG TABLET 50 MG PO (10:38)
[2020-09-21] MEDS: POTASSIUM CHLORIDE 20 MEQ TABLET.ER 40 MEQ PO (10:38)
[2020-09-21] MEDS: METOPROLOL TARTRATE 25 MG TABLET PO (10:38)
[2020-09-21] MEDS: LOSARTAN POTASSIUM 100 MG TABLET PO (10:38)
[2020-09-21] MEDS: FLUTICASONE PROPIONATE 0.05% NA SPR 16 GM BTL (*BKC) 2 SPRAY NASAL (13:54)
[2020-09-21] MEDS: DOXYCYCLINE HYCLATE 100 MG TABLET PO ×2 (13:54→18:36)
--- NOTE | 2020-09-21 15:04 | PM.IMPN ---
Progress Note: A&P Assessment and Plan (1) Pulmonary edema: Code(s): J81.1 - Chronic pulmonary edema Status: Acute Assessment and Plan: Continue with IV Lasix. strict intake output record. She is currently on room air. Oxygen inhalation only [place] saturation is less than 90%. (2) Atrial fibrillation with RVR: Code(s): I48.91 - Unspecified atrial fibrillation Status: Acute Assessment and Plan: Cardiology service recommendations appreciated. Cardiology is planning for MALLY and possible cardioversion in the a.m.. She will be NPO overnight. Continue with diltiazem drip. She has been started on metoprolol and her diltiazem drip will be slowly weaned off. Continue with Lovenox. she will be transitioned to p.o. anticoagulants in the next 2-3 days. Continue monitor on telemetry. (3) YAQUELIN (obstructive sleep apnea): Code(s): G47.33 - Obstructive sleep apnea (adult) (pediatric) Status: Acute Assessment and Plan: auto titrate for home CPAP (4) Hypertension: Code(s): I10 - Essential (primary) hypertension Status: Acute Assessment and Plan: continue with amlodipine losartan and hydrochlorothiazide. Metoprolol has been added by Cardiology service for rate controlled. Continue to monitor hemodynamics closely. (5) Person under investigation for COVID-19: Code(s): Z20.822 - Contact with and (suspected) exposure to COVID-19 Status: Acute Assessment and Plan: She has been vaccinated with pfizer vaccine in the month of July. She has been tested -5 days ago with same symptoms. She has been retested now with pending results. Continue isolation precaution. COVID-19 infection is unlikely. (6) CHF (congestive heart failure): Code(s): I50.9 - Heart failure, unspecified Status: Acute Assessment and Plan: Continue Lasix. Transesophageal echo will be done tomorrow by cardiology service. Strict intake output record and daily weight. Subjective Date/time seen: 09/21/20 15:04 She is still complaining of cough which is mostly dry but with some occasional whitish phlegm. She denied have any chest pain palpitation dizziness and lightheadedness. She denied have any fever and chills. She denied have any exposure to any patient with suspected or confirmed COVID-19 disease. She did exposed to 1 family member had flu like symptoms. She was on diltiazem drip for atrial fibrillation with rapid ventricular rate. Review of Systems Review of Systems: All systems reviewed & are unremarkable except as noted in HPI and below Exam Narrative: Exam Narrative: General: Very pleasant obese female sitting upright in bed,Well developed, alert and oriented x3. No apparent distress, comfortable, pleasant, and cooperative. Neck: supple Cardiac: tachycardic, irregularly irregular rate and rhythm, normal S1-S2, no murmurs, rubs Lungs: slightly diminished breath sounds diffusely otherwise clear to auscultation bilaterally, no rales, wheezes, or rhonchi. Abdomen: Obese, soft, nontender, nondistended Extremities: No edema, clubbing, and or cyanosis. Extremities warm and well perfused. Neurologic: Alert oriented x3 grossly nonfocal neurological exam Pscyhiatric: Mood calm and appropriate. Objective Data Vital Signs Vital Signs: Vital Signs - 24 hr 09/20/20 15:54 09/20/20 16:13 09/20/20 16:21 Temperature Pulse Rate 104 H 106 H 109 H Respiratory Rate 20 20 20 Blood Pressure 153/115 H 141/101 H 141/101 H Pulse Oximetry 98 99 98 09/20/20 18:00 09/20/20 18:26 09/20/20 20:00 Temperature 36.5 C 36.3 C L Pulse Rate 118 H 108 H 99 Respiratory Rate 20 20 Blood Pressure 151/100 H 128/85 Pulse Oximetry 96 96 09/20/20 22:00 09/20/20 22:09 09/20/20 23:18 Temperature Pulse Rate 110 H 107 H 105 H Respiratory Rate 18 Bl
[2020-09-21] MEDS: BENZOCAINE/MENTHOL (*BKC) 18 EA LOZENGE 1 LOZENGE PO (15:21)
[2020-09-21] MEDS: PROMETHAZINE/CODEINE (*CRX) 5 ML SYRUP PO (15:25)
[2020-09-21] MEDS: ONDANSETRON INJ 4 MG/2 ML VIAL IV PUSH (15:25)
[2020-09-21] MEDS: METOPROLOL TARTRATE 50 MG TAB PO (18:35)
[2020-09-22] VITALS (18 sets, daily range): BP systolic 108–124; BP diastolic 71–89; PULSE 71–130; RESP 12–23; TEMP 36.2–36.6; O2SAT 96–100
[2020-09-22] MEDS: METOPROLOL TARTRATE 50 MG TAB PO ×2 (02:18→10:09)
[2020-09-22] MEDS: DOXYCYCLINE HYCLATE 100 MG TABLET PO ×2 (05:16→18:51)
[2020-09-22] MEDS: ENOXAPARIN 120 MG/0.8 ML SYRINGE 115 MG SUB-Q (05:16)
[2020-09-22 05:35] LABS: Basophils Absolute Auto 0.1 K/mm3 (0.0-0.1); Basophils Percent Auto 0.5 % (0.2-1.2); Eosinophils Absolute Auto 0.2 K/mm3 (0-0.3); Eosinophils Percent Auto 1.6 % (0-4.4); Hematocrit 40.6 % (37.0-47.0); Hemoglobin 12.9 g/dL (12.0-15.0); Immature Granulocyte Absolute 0.02 K/mm3 (0.00-0.031); Immature Granulocyte Percent A 0.2 % (0-0.5); Lymphocytes Absolute Auto 3.23 K/mm3 (0.9-3.2); Lymphocytes Percent Auto 32.3 % (18.3-44.2); Mean Corpuscular HGB Conc 31.8 g/dl (32-36); Mean Corpuscular Hemoglobin 28.5 pg (26-34); Mean Corpuscular Volume 89.6 fl (80-100); Mean Platelet Volume 9.6 fl (7.4-10.4); Monocytes Absolute Auto 0.7 K/mm3 (0.1-0.6); Monocytes Percent Auto 6.7 % (2.6-8.5); Neutrophils Absolute Auto 5.9 K/mm3 (1.3-6.7); Neutrophils Percent Auto 58.7 % (45.5-73.1); Platelet Count Result 390 k/mm3 (150-375); Red Blood Count 4.53 M/mm3 (4.2-5.4); Red Cell Distribution Width 14.3 % (11.5-14.5)
[2020-09-22 06:01] LABS: Anion Gap 9 mmol/L (8-16); Blood Urea Nitrogen 18 mg/dL (7-17); Calcium 9.7 mg/dL (8.4-10.2); Carbon Dioxide 28 mmol/L (22-30); Chloride 101 mmol/L (98-107); Estimated CRCL calculation 69 ml/min; Estimated Glomerular Filt Rate 58; Glucose 98 mg/dL (65-110); Magnesium 2.1 mg/dL (1.6-2.3); Potassium 3.3 mmol/L (3.4-5.0); Sodium 138 mmol/L (137-145)
[2020-09-22] MEDS: MULTIVITS W-FE,MIN CHEWABLE TABLET 1 TABLET PO (10:09)
[2020-09-22] MEDS: amLODIPine BESYLATE 5 MG TABLET PO (10:09)
[2020-09-22] MEDS: LOSARTAN POTASSIUM 100 MG TABLET PO (10:09)
[2020-09-22] MEDS: FLUTICASONE PROPIONATE 0.05% NA SPR 16 GM BTL (*BKC) 2 SPRAY NASAL (10:09)
[2020-09-22] MEDS: hydroCHLOROthiazide 25 MG TABLET 50 MG PO (10:09)
[2020-09-22] MEDS: FUROSEMIDE INJ 40 MG/4 ML VIAL IV PUSH (10:09)
[2020-09-22] MEDS: POTASSIUM CHLORIDE 20 MEQ TABLET.ER 40 MEQ PO (10:30)
--- NOTE | 2020-09-22 12:19 | PM.PNCARD ---
Progress Note: A&P Assessment and Plan (1) Atrial fibrillation with RVR: Code(s): I48.91 - Unspecified atrial fibrillation Status: Acute Assessment and Plan: Paroxysmal atrial fibrillation with rapid ventricular response presenting with evidence of mild decompensated heart failure diastolic possible systolic otherwise unaware of atrial fibrillation presenting with shortness of breath, elevated BNP, pulmonary vascular congestion on chest imaging. TSH 3.460. - Heart rate fair but not ideally controlled. Increase metoprolol 75 mg p.o. q.8 hours. Depending upon response simplify regimen to 100mg BID and timing of MALLY/CV with Anesthesiology. Plan for MALLY/CV tomorrow pending COVID swab which is still pending. -Will need negative COVID swab prior to MALLY/CV. If +COVID, rate control strategy will be pursued. -2D Echo pending. -NPO after midnight for anticipated MALLY/CV with Anesthesiology. Discussed with pt in detail. She verbalized understanding and agreed with plan of care. -Stop Enoxaparin in favor of oral anticoagulation, Eliquis 5mg BID. Care Coordination to scott for patient. (2) CHF (congestive heart failure): Code(s): I50.9 - Heart failure, unspecified Status: Acute Assessment and Plan: As above, elevated BNP, pulmonary vascular congestion on chest x-ray and symptoms suggestive of CHF at presentation. Precise etiology unclear possible tachycardia induced cardiomyopathy due to longer duration uncontrolled AFib. -Change Lasix to 40mg po daily (3) Hypokalemia: Code(s): E87.6 - Hypokalemia Status: Acute Assessment and Plan: Replete K+, will give additional 40 mEq p.o. x1 this AM. Magnesium stable. Monitor daily to keep level around 4.0. With reduction in Lasix to po will check BMP in AM. (4) YAQUELIN (obstructive sleep apnea): Code(s): G47.33 - Obstructive sleep apnea (adult) (pediatric) Status: Acute Assessment and Plan: Compliance with CPAP. (5) Hypertension: Code(s): I10 - Essential (primary) hypertension Status: Acute Assessment and Plan: BP reasonably controlled. (6) Person under investigation for COVID-19: Code(s): Z20.822 - Contact with and (suspected) exposure to COVID-19 Status: Acute Assessment and Plan: Swab pending. Patient had Pfizer vaccination series in May, tested negative for COVID 6 days prior to admission, unlikely COVID+ but will await results. She remains in isolation. Subjective Date/time seen: Date of service: 09/22/20 12:19 Follow-up for atrial fibrillation with rapid ventricular response feels okay today. Denies shortness of breath, palpitations. Heart rate in atrial fibrillation 90s to 100s generally up to 120s with activity. She denies lightheadedness. No new issues overnight. She remains on isolation as COVID swab is still pending from Tuesday. Review of Systems Review of Systems: All systems reviewed & are unremarkable except as noted in HPI and below Constitutional: Constitutional: Reports as per HPI, Reports no additional constitutional complaints, Reports chills, Reports fatigue, Reports lethargy and Reports night sweats Eyes: Eyes: Reports as per HPI and Reports no additional eye complaints ENT: Reports system reviewed and no additional complaints, except as documented and Reports as per HPI Cardiovascular: Cardiovascular: Reports as per HPI, Reports no additional cardiovascular complaints, Reports chest pain, Denies diaphoresis, Denies pedal edema, Denies leg edema, Denies lightheadedness, Denies palpitations, Reports dyspnea and Reports dyspnea on exertion Respiratory: Respiratory: Reports as per HPI, Reports no additional respiratory complaints, Reports cough, Reports dyspnea and Reports dyspnea on exertion Gastrointestinal: Gastrointestinal: Reports as per HPI, Reports no additional gastrointestinal complaints, Denies abdominal pain, Denies melena, Denies blo
[2020-09-22] MEDS: POTASSIUM CHLORIDE 20 MEQ TABLET 40 MEQ PO (13:00)
[2020-09-22] MEDS: METOPROLOL TARTRATE 25 MG TABLET PO (13:00)
--- NOTE | 2020-09-22 13:55 | PM.IMPN ---
Progress Note: A&P Assessment and Plan (1) Pulmonary edema: Code(s): J81.1 - Chronic pulmonary edema Status: Acute Assessment and Plan: CTA of the chest was negative for PE but did show moderate right pleural effusion and pulmonary edema. She was started on IV Lasix. She has had good urine output with negative fluid balance. Most likely this is related to the uncontrolled atrial fibrillation. Cardiology following. No echo ordered. She is currently on room air. MALLY /CV planned so will not order surface Echo. Cr up to 1.2. Will stop lasix today. (2) Atrial fibrillation with RVR: Code(s): I48.91 - Unspecified atrial fibrillation Status: Acute Assessment and Plan: Patient has a hx of AFib last year after a procedure. She presents with SOB from pulmonary edema related to AFib/RVR. Started on Diltiazem drip and now changed to oral metoprolol and dose increasing to control rate. Lovenox was started but transtioned to Eliquis today. Appreciate Cardiology input. Cardiology is planning for MALLY and possible cardioversion in the a.m.. (3) YAQUELIN (obstructive sleep apnea): Code(s): G47.33 - Obstructive sleep apnea (adult) (pediatric) Status: Acute Assessment and Plan: Compliant with treatment. Continue auto titrated CPAP. (4) Hypertension: Code(s): I10 - Essential (primary) hypertension Status: Acute Assessment and Plan: BP markedly elevated at 172/128. These is concern that she is intermittently compliant with her BP medciations. Amlodipine, losartan and hydrochlorothiazide have ender resumed. Bp reviewed on 09/22 and BP much better controlled. Metoprolol added by Cardiology service for rate controlled. Continue to monitor hemodynamics closely. (5) Person under investigation for COVID-19: Code(s): Z20.822 - Contact with and (suspected) exposure to COVID-19 Status: Acute Assessment and Plan: She has been vaccinated with Pfizer vaccine in the month of July. She has been tested 5 days ago with same symptoms and was negative. She has been retested now with pending results. Continue isolation precaution. COVID-19 infection is unlikely. (6) CHF (congestive heart failure): Code(s): I50.9 - Heart failure, unspecified Status: Acute Assessment and Plan: CTA results as above. BNP 1450. [place] CHF related to AFib/RVR. Good results with Lasix and back to baseline. Cr up to 1.2. Doubt she will need Lasix [facility]. Transesophageal echo will be done tomorrow by cardiology service. Strict intake output record and daily weight. Stop Lasix Subjective Date/time seen: 09/22/20 13:55 Interval history: 50yo female with HTN and pAFib her for cough and chest tightness and found to have AFib/RVR. She had her COVID vaccine in July. She feels well. Shortness of breath is better. Minimal cough. No chest pain. Eating okay. No nausea or vomiting. No dyspnea on exertion. Exam Narrative: Exam Narrative: AF 97.9 124/ 84 111 12 99% ra Gen - NARD Chest - CTA bilaterally, nml RR CV - irregularly irregular and mildly tachycardic. Tele showing AFib/RVR Abd - Soft, NT/ND, Positive BS Ext - No pedal edema. 2+ DP Neuro - Alert and oriented. Nonfocal exam. Psych - Nml mood and affect Skin - Warm and dry Objective Data Vital Signs Vital Signs: Vital Signs - 24 hr 09/21/20 14:00 09/21/20 14:27 09/21/20 16:00 Temperature Pulse Rate 98 106 H Respiratory Rate Blood Pressure Pulse Oximetry 97 09/21/20 16:51 09/21/20 18:00 09/21/20 18:35 Temperature 98.3 F Pulse Rate 102 H 102 H 101 H Respiratory Rate 20 Blood Pressure 117/75 Pulse Oximetry 94 09/21/20 19:43 09/21/20 20:00 09/21/20 22:00 Temperature 98.4 F Pulse Rate 101 H 95 102 H Respiratory Rate 20 Blood Pressure 123/74 Pulse Oximetry 95 09/21/20 23:58 09/22/20 00:00 09/22/20 02:00 Temperature 97.2 F L Pulse R
[2020-09-22] MEDS: METOPROLOL TARTRATE TAB 25 MG, METOPROLOL TARTRATE TAB 50 MG 75 MG PO (18:51)
[2020-09-22] MEDS: APIXABAN 5 MG TABLET PO (18:51)
[2020-09-22 20:12] LABS: SARS-CoV-2 RNA PCR Negative
[2020-09-23] VITALS (17 sets, daily range): BP systolic 95–127; BP diastolic 61–91; PULSE 65–113; RESP 12–20; TEMP 36.2–37.2; O2SAT 97–100
--- NOTE | 2020-09-23 | ECG_ITS ---
Measurements Intervals [place] Rate: 70 P: 59 AL: 164 QRS: 67 QRSD: 102 T: 49 QT: 450 QTc: 487 Interpretive Statements SINUS RHYTHM ANTEROSEPTAL INFARCT, AGE INDETERMINATE BORDERLINE T WAVE ABNORMALITY- ANTEROLATERAL LEADS BASELINE WANDER- I, II ABNORMAL ECG Electronically Signed On 09-23-2020 11:13:47 CDT by James Keller D.O.
[2020-09-23] MEDS: METOPROLOL TARTRATE TAB 25 MG, METOPROLOL TARTRATE TAB 50 MG 75 MG PO ×3 (01:55→18:56)
[2020-09-23 05:13] LABS: Hematocrit 41.5 % (37.0-47.0); Hemoglobin 12.9 g/dL (12.0-15.0); Mean Corpuscular HGB Conc 31.1 g/dl (32-36); Mean Corpuscular Hemoglobin 28.4 pg (26-34); Mean Corpuscular Volume 91.2 fl (80-100); Mean Platelet Volume 9.7 fl (7.4-10.4); Platelet Count Result 403 k/mm3 (150-375); Red Blood Count 4.55 M/mm3 (4.2-5.4); Red Cell Distribution Width 14.1 % (11.5-14.5); White Blood Count 9.6 K/mm3 (4.5-10.0)
[2020-09-23 05:22] LABS: Alanine Aminotransferase 34 U/L (4-35); Albumin Level 3.8 g/dL (3.5-5.1); Alkaline Phosphatase 84 U/L (38-126); Anion Gap 7 mmol/L (8-16); Aspartate Amino Transferase 32 U/L (14-36); Bilirubin,Total 0.5 mg/dL (0.2-1.3); Blood Urea Nitrogen 19 mg/dL (7-17); Calcium 9.4 mg/dL (8.4-10.2); Carbon Dioxide 32 mmol/L (22-30); Chloride 100 mmol/L (98-107); Estimated CRCL calculation 69 ml/min; Estimated Glomerular Filt Rate 58; Glucose 99 mg/dL (65-110); Magnesium 1.9 mg/dL (1.6-2.3); Potassium 3.5 mmol/L (3.4-5.0); Sodium 139 mmol/L (137-145)
[2020-09-23] MEDS: DOXYCYCLINE HYCLATE 100 MG TABLET PO ×2 (06:40→18:56)
--- NOTE | 2020-09-23 08:45 | WPDANESEPPF ---
Anes - Initial Pre Proc Eval Procedure: Operation Date: 09/23/20 10:00 Proposed Procedures p Trans Esophageal Echo - Quinton Cole MD s Electrical Cardioversion - Quinton Cole MD Date/Time: 09/23/20 08:45 Surgeon: Sha Lozano MD Pre Op Diagnosis: New onset atrial fib w RVR, CHF, PUI covid Patient Data Age: 50 Gender: F Height: 1.8 m Weight: 112.7 kg Last Vital Signs Temp 97.9 F 09/23/20 08:00 Pulse 105 H 09/23/20 08:00 Resp 12 09/23/20 08:00 BP 119/90 09/23/20 08:00 Pulse Ox 100 09/23/20 08:00 Allergies Allergy/AdvReac Type Severity Reaction Status Date / Time No Known Allergies Allergy Verified 09/20/20 11:27 Home Medications Medication Instructions Recorded Confirmed Type amlodipine 5 mg PO DAILY 04/06/19 09/20/20 History hydrochlorothiazide 50 mg PO DAILY 09/20/20 09/20/20 History losartan 100 mg PO DAILY 09/20/20 09/20/20 History multivit with min-folic acid 1 tablet PO DAILY 09/20/20 09/20/20 History [One-[employer]-Day [facility]] Laboratory Tests 09/20/20 09/23/20 09/23/20 11:49 04:31 04:31 WBC 9.6 K/mm3 K/mm3 (4.5-10.0) RBC 4.55 M/mm3 M/mm3 (4.2-5.4) Hgb 12.9 g/dL g/dL (12.0-15.0) Hct 41.5 % % (37.0-47.0) MCV 91.2 fl fl (80-100) MCH 28.4 pg pg (26-34) MCHC 31.1 g/dl L g/dl (32-36) RDW 14.1 % % (11.5-14.5) Plt Count 403 k/mm3 H k/mm3 (150-375) MPV 9.7 fl fl (7.4-10.4) Sodium 139 mmol/L mmol/L (137-145) Potassium 3.5 mmol/L mmol/L (3.4-5.0) Chloride 100 mmol/L mmol/L (98-107) Carbon Dioxide 32 mmol/L H mmol/L (22-30) Anion Gap 7 mmol/L L mmol/L (8-16) BUN 19 mg/dL H mg/dL (7-17) Creatinine 1.20 mg/dL H mg/dL (0.7-1.0) Estim Creat Clear Calc 69 ml/min ml/min Estimated GFR 58 L (59 - ) Glucose 99 mg/dL mg/dL (65-110) Calcium 9.4 mg/dL mg/dL (8.4-10.2) Magnesium 1.9 mg/dL mg/dL (1.6-2.3) Total Bilirubin 0.5 mg/dL mg/dL (0.2-1.3) AST 32 U/L U/L (14-36) ALT 34 U/L U/L (4-35) Alkaline Phosphatase 84 U/L U/L (38-126) Total Protein 7.0 g/dL g/dL (6.3-8.2) Albumin 3.8 g/dL g/dL (3.5-5.1) SARS-CoV-2 RNA (RT-PCR) Negative Patient hx anesthesia problems: none Family hx anesthesia problems: none PMFSH Past Medical History Medical History Admission for tubal ligation Atrial fibrillation with RVR Hypertension Hypertension Miscarriage Obesity YAQUELIN (obstructive sleep apnea) Surgical History Surgical History H/O dilation and curettage H/O: hysterectomy [place] teeth removed Family History Family History Other Carcinoma of colon Other Cerebrovascular accident Sibling Diabetes mellitus Mother Hypertension Social History Social History Social History: 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 She is single and has 1 child. She is a lifelong nonsmoker. She rarely drinks alcohol. She does not have a durable power assistant attorney general. the patient is listed as a full code. Smoking status: Never smoker Alcohol intake: current Drinks per week: 1 Substance use: never Last use: occasionally Gender identity (if verbalized by the patient): Female Spiritual care concerns: No Anes - Eval Final PreProcedure Day of Procedure 09/23/20 08:45 Patient weight: obese Heart: irregular rhythm Lungs: clear to auscultation Airway: Mallampati scale class II Neurological: alert and oriented Last oral intake: >/= 8 hours ASA classification: III Emergent: no Anesthetic plan: proceed Anesth
[2020-09-23] MEDS: LOSARTAN POTASSIUM 100 MG TABLET PO (08:58)
[2020-09-23] MEDS: APIXABAN 5 MG TABLET PO ×2 (08:58→20:52)
[2020-09-23] MEDS: MULTIVITS W-FE,MIN CHEWABLE TABLET 1 TABLET PO (08:59)
[2020-09-23] MEDS: amLODIPine BESYLATE 5 MG TABLET PO (08:59)
[2020-09-23] MEDS: hydroCHLOROthiazide 25 MG TABLET 50 MG PO (08:59)
--- NOTE | 2020-09-23 11:04 | WPDTECDV ---
MALLY with Cardioversion Date of procedure: 09/23/20 Procedure Type: transesophageal echocardiogram guided elective electrical cardioversion Diagnosis: Atrial fibrillation with rapid ventricular response Indications: atrial fibrillation with rapid ventricular response Description of Procedure: Brief history present illness: Patient is a pleasant 50-year-old female with past medical history sitting for hypertension, atrial fibrillation presented with shortness of breath, mild CHF and atrial fibrillation with rapid ventricular response referred for transesophageal echocardiogram-guided elective electrical cardioversion in attempt to restore sinus rhythm. Procedure in detail: After verbal and written informed consent was obtained the patient risks, benefits, and alternatives explained in detail the patient agreed to proceed with the plan of care as outlined above. Patient was evaluated at bedside in the gastroenterology procedure suite On examination, neck was supple with normal range of motion, no restrictions to opening of the oral cavity, jaw angle and posterior hypopharynx was clear. Lungs were clear to auscultation. Patient was placed in appropriate 30 to 45 degree angle in a supine, position. Patient was monitored throughout the study with telemetry, oxygen saturation, end-tidal CO2 monitoring, blood pressure, heart rate, and respirations. Anterior and posterior defibrillator pads placed in the appropriate positions. The posterior hypopharynx was then locally anesthetized using Hurricaine spray. After after adequate sedation was administered by Anesthesiology, through the oral bite block, the transesophageal echocardiogram probe was advanced into the posterior hypopharynx and into the esophagus easily and without complication. Multiple, multiplanar echocardiographic images were obtained in multiple standard re-projections. Pulsed wave, continuous-wave, and color-flow Doppler were utilized in conjunction with this study. At the conclusion of the study, the transesophageal echocardiogram probe was removed easily and without complication. Patient tolerated the procedure well without difficulty. Patient was in atrial fibrillation throughout the study. Sedation: Moderate Sedation/Anesthesia administration: Patient denied previous intolerance or complications with anesthesia/sedation. please see Anesthesiology documentation for sedation protocol and details. There were no other issues or complications and patient tolerated the procedure well and sedation protocol well and I was present for the entirety. Findings: FINDINGS: LEFT VENTRICLE: Moderately enlarged with moderate systolic dysfunction with EF 30-35% and mild LV wall thickness. RIGHT VENTRICLE: Size and systolic function within normal limits. LEFT ATRIUM: moderately enlarged, faint spontaneous contrast. No thrombus identified. RIGHT ATRIUM: Normal size. INTERATRIAL SEPTUM: Interatrial septum was thin and hypermobile without evidence of shunt with color-flow Doppler nor with injection of agitated saline. MITRAL VALVE: Mitral valve is anatomically normal with preserved leaflet excursion and at least 3-4 separate regurgitant jets identified with [id number] regurgitation. AORTIC VALVE: The aortic valve was an anatomically normal 3 leaflet structure with normal leaflet excursion and no regurgitation identified. TRICUSPID VALVE: The tricuspid valve is anatomically normal with normal leaflet excursion with trivial regurgitation identified. No mobile elements identified. PULMONIC VALVE: Pulmonic valve was not well visualized, however, trivial regurgitation was identified. LEFT ATRIAL APPENDAGE: Anatomically normal structure with prominent pectinate muscles without thrombus or vegetation identified. Left atrial appendage velocities averaged approximately 30 centimeters/second. LEFT UPPER PULMONARY VEIN: Left upper pulmonary venous flow consistent with atrial fibrill
--- NOTE | 2020-09-23 15:32 | PM.IMPN ---
Progress Note: A&P Assessment and Plan (1) Pulmonary edema: Code(s): J81.1 - Chronic pulmonary edema Status: Acute Assessment and Plan: CTA of the chest was negative for PE but did show moderate right pleural effusion and pulmonary edema. She was started on IV Lasix. She has had good urine output with negative fluid balance. Most likely this is related to the uncontrolled atrial fibrillation. Cardiology following. She is currently on room air. MALLY /CV today and was successfully converted to NSR. (2) Atrial fibrillation with RVR: Code(s): I48.91 - Unspecified atrial fibrillation Status: Acute Assessment and Plan: Patient has a hx of AFib last year after a procedure. She presents with SOB from pulmonary edema related to AFib/RVR. Started on Diltiazem drip and now changed to oral metoprolol and dose increasing to control rate. Lovenox was started but transitioned to Eliquis yesterday. MALLY showing EF 30-35% possibly related to uncontrolled rate. Patient underwent successful cardioversion. (3) YAQUELIN (obstructive sleep apnea): Code(s): G47.33 - Obstructive sleep apnea (adult) (pediatric) Status: Acute Assessment and Plan: Mostly compliant with treatment. Continue auto titrated CPAP. (4) Hypertension: Code(s): I10 - Essential (primary) hypertension Status: Acute Assessment and Plan: BP markedly elevated at 172/128. These is concern that she is intermittently compliant with her BP medciations. Amlodipine, losartan and hydrochlorothiazide have ender resumed. Bp reviewed on 09/22 and BP much better controlled. Metoprolol added by Cardiology service for rate controlled. Continue to monitor hemodynamics closely. (5) Person under investigation for COVID-19: Code(s): Z20.822 - Contact with and (suspected) exposure to COVID-19 Status: Acute Assessment and Plan: She has been vaccinated with Pfizer vaccine in the month of July. She has been tested 5 days ago with same symptoms and was negative. She was retested here and was negative. (6) CHF (congestive heart failure): Code(s): I50.9 - Heart failure, unspecified Status: Acute Assessment and Plan: CTA chest results as above. BNP 1450. MALLY showing EF 30-35% with [place] CHF related to AFib/RVR. Good results with Lasix and back to baseline. Cr up to 1.2. 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 After discussing with Cardiology, will change to Spironolactone and stop HCTZ. Change to Toprol XL and continue ARB. Subjective Date/time seen: 09/23/20 15:32 Interval history: 50yo female with HTN and pAFib her for cough and chest tightness and found to have AFib/RVR. She had her COVID vaccine in July. She feels well. Toelrated the cardioversion without difficulty. Hasn't eaten yet today. No nausea or vomiting. No chest pain. Shortness of breath is better. Minimal cough. No dyspnea on exertion walking to the bathroom Exam Narrative: Exam Narrative: AF 97.2 122/89 68 12 100% ra Gen - NARD Chest - CTA bilaterally, nml RR CV - RRR S1/S2. Tele showing OVCs, NSR Abd - Soft, NT/ND, Positive BS Ext - No pedal edema. 2+ DP Neuro - Alert and oriented. Nonfocal exam. Psych - Nml mood and affect Skin - Warm and dry Objective Data Vital Signs Vital Signs: Vital Signs - 24 hr 09/22/20 16:00 09/22/20 18:00 09/22/20 18:51 Temperature 97.7 F Pulse Rate 107 H 111 H 111 H Respiratory Rate 14 Blood Pressure 115/89 Pulse Oximetry 100 09/22/20 20:00 09/22/20 22:00 09/23/20 00:00 Temperature 97.4 F L 98.9 F Pulse Rate 109 H 91 101 H Respiratory Rate 20 20 Blood Pressure 108/71 113/81 Pulse Oximetry 99 99 09/23/20 01:55 09/23/20 02:00 09/23/20 04:00 Temperature 98.2 F Pulse Rate 103 H 98 91 Respiratory Rate 18 Blood Pressure 117/88 Pulse Oximetry 97 09/23/20 06:00 09/23/20 08:00 09/23/20 10:45 Temperature 97.9 F Pulse Rate 1
--- NOTE | 2020-09-23 15:48 | PM.PNCARD ---
Progress Note: A&P Assessment and Plan (1) Cardiomyopathy: Code(s): I42.9 - Cardiomyopathy, unspecified Status: Acute Assessment and Plan: new diagnosis EF 30-35% by MALLY. 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 Patient is not reporting anginal symptoms. Persistence of AFib previously is unknown possible persistent since diagnosis April 2019, however, this is speculation. Given the fact that she converted I do not suspect she has been persistently in AFib with RVR for the past 18 months. We discussed cardiovascular support with beta-blockers, losartan. I would recommend discontinuation of hydrochlorothiazide in favor of spironolactone 25 mg daily. This would also permit discontinuation of potassium chloride supplementation. I advised patient of increased risk associated cardiomyopathy. Discussed ischemic evaluation but would not want to discontinue anticoagulation for least 30 days post cardioversion for coronary angiography. Alternative would be noninvasive studies such as Lexiscan with recommendation to follow thereafter. If EF improved with control of AFib this would more likely support tachycardia induced cardiomyopathy. Patient also has at least moderate MR with significant left atrial enlargement which may be functional due to LV enlargement, cardiomyopathy less likely causative. We do not have documentation of MR or LV function previously. Advised patient she stable for discharge from cardiac perspective but she is uncomfortable at this time given med changes and in light of the news I discussed with her. This is reasonable to ensure maintenance of sinus rhythm overnight and tolerance of medication changes prior to discharge tomorrow. (2) Atrial fibrillation with RVR: Code(s): I48.91 - Unspecified atrial fibrillation Status: Acute Assessment and Plan: Status post MALLY guided cardioversion maintaining sinus rhythm. Continue Eliquis 5 mg b.i.d. without interruption until advised and particularly in the next 30 days Post cardioversion to reduce embolic stroke risk. Patient verbalizes understanding. monitor for bleeding. Continue beta-kelsie therapy transition to Toprol XL 100 mg daily due to LV dysfunction EF 30-35%. discussed antiarrhythmic therapy such as amiodarone particularly if recurrent AFib given LV dysfunction. (3) CHF (congestive heart failure): Code(s): I50.9 - Heart failure, unspecified Status: Acute Assessment and Plan: Off Lasix. Change to spironolactone as above. (4) Hypokalemia: Code(s): E87.6 - Hypokalemia Status: Acute Assessment and Plan: Check BMP as outpatient. (5) YAQUELIN (obstructive sleep apnea): Code(s): G47.33 - Obstructive sleep apnea (adult) (pediatric) Status: Acute Assessment and Plan: Compliance with CPAP. (6) Hypertension: Code(s): I10 - Essential (primary) hypertension Status: Acute Assessment and Plan: BP reasonably controlled. Monitor closely call with readings as an outpatient. (7) Person under investigation for COVID-19: Code(s): Z20.822 - Contact with and (suspected) exposure to COVID-19 Status: Acute Assessment and Plan: Negative COVID swab. Subjective Date/time seen: date of service:09/23/20 15:48 Follow-up for CHF, AFib with RVR patient status post successful MALLY guided cardioversion with Anesthesiology earlier today. Patient states she is feeling well, denies shortness of breath, palpitations or chest pain. Patient maintaining sinus rhythm. No dizziness, orthopnea or PND. Tolerating medical therapy thus far. Came back to discuss new diagnosis moderate LV systolic dysfunction EF 30-35% by MALLY. Review of Systems Review of Systems: All systems reviewed & are unremarkable except as noted in HPI and below Constitutional: Constitutional: Repor
[2020-09-24] VITALS (10 sets, daily range): BP systolic 118–122; BP diastolic 68–77; PULSE 61–79; RESP 12–18; TEMP 36.4–37.2; O2SAT 96–100
[2020-09-24] MEDS: DOXYCYCLINE HYCLATE 100 MG TABLET PO (05:41)
[2020-09-24 06:00] LABS: Anion Gap 5 mmol/L (8-16); Blood Urea Nitrogen 23 mg/dL (7-17); Calcium 9.4 mg/dL (8.4-10.2); Carbon Dioxide 31 mmol/L (22-30); Chloride 102 mmol/L (98-107); Estimated CRCL calculation 64 ml/min; Estimated Glomerular Filt Rate 53; Glucose 98 mg/dL (65-110); Magnesium 1.9 mg/dL (1.6-2.3); Potassium 3.8 mmol/L (3.4-5.0); Sodium 138 mmol/L (137-145)
[2020-09-24] MEDS: APIXABAN 5 MG TABLET PO (08:21)
[2020-09-24] MEDS: SPIRONOLACTONE 25 MG TABLET PO (08:21)
[2020-09-24] MEDS: METOPROLOL SUCCINATE EXT REL 100 MG TABCR PO (08:21)
[2020-09-24] MEDS: amLODIPine BESYLATE 5 MG TABLET PO (08:21)
[2020-09-24] MEDS: MULTIVITS W-FE,MIN CHEWABLE TABLET 1 TABLET PO (08:21)
[2020-09-24] MEDS: LOSARTAN POTASSIUM 100 MG TABLET PO (08:21)
--- NOTE | 2020-09-24 10:29 | PM.PNCARD ---
Progress Note: A&P Assessment and Plan (1) Cardiomyopathy: Code(s): I42.9 - Cardiomyopathy, unspecified Status: Acute Assessment and Plan: new diagnosis EF 30-35% by MALLY. 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 Patient is not reporting anginal symptoms. Persistence of AFib previously is unknown possible persistent since diagnosis April 2019, however, this is speculation. Given the fact that she converted I do not suspect she has been persistently in AFib with RVR for the past 18 months. -Cont Toprol XL 100mg daily, Eliquis 5mg BID, Spironolactone 25mg daily, Amlodipine, Losartan 100mg daily -Outpt follow up, BMP 1 week, EKG 1 week. -CPAP and med compliance, CHF counseling. Ok for discharge today, monitor renal function as an outpatient. (2) Atrial fibrillation with RVR: Code(s): I48.91 - Unspecified atrial fibrillation Status: Acute Assessment and Plan: Status post MALLY guided cardioversion maintaining sinus rhythm. Continue Eliquis 5 mg b.i.d. without interruption until advised and particularly in the next 30 days Post cardioversion to reduce embolic stroke risk. Patient verbalizes understanding. monitor for bleeding. Continue beta-kelsie therapy transition to Toprol XL 100 mg daily due to LV dysfunction EF 30-35%. discussed antiarrhythmic therapy such as amiodarone particularly if recurrent AFib given LV dysfunction. (3) CHF (congestive heart failure): Code(s): I50.9 - Heart failure, unspecified Status: Acute Assessment and Plan: Off Lasix. Change to spironolactone as above. (4) Hypokalemia: Code(s): E87.6 - Hypokalemia Status: Acute Assessment and Plan: Check BMP as outpatient. (5) YAQUELIN (obstructive sleep apnea): Code(s): G47.33 - Obstructive sleep apnea (adult) (pediatric) Status: Acute Assessment and Plan: Compliance with CPAP. (6) Hypertension: Code(s): I10 - Essential (primary) hypertension Status: Acute Assessment and Plan: BP reasonably controlled. Monitor closely call with readings as an outpatient. (7) Person under investigation for COVID-19: Code(s): Z20.822 - Contact with and (suspected) exposure to COVID-19 Status: Acute Assessment and Plan: Negative COVID swab. Subjective Date/time seen: date of service: 09/24/20 10:29 Follow-up for atrial fibrillation status post cardioversion, CHF patient feels very well. Has no complaints. Denies shortness of breath, dizziness, palpitations, chest pain or lower extremity edema. Eating well. Tolerating CPAP overnight. No issues with medications. Ready to go home. Maintaining sinus rhythm on telemetry. Review of Systems Review of Systems: All systems reviewed & are unremarkable except as noted in HPI and below Constitutional: Constitutional: Reports as per HPI, Reports no additional constitutional complaints, Reports chills, Reports fatigue, Reports lethargy and Reports night sweats Eyes: Eyes: Reports as per HPI and Reports no additional eye complaints ENT: Reports system reviewed and no additional complaints, except as documented and Reports as per HPI Cardiovascular: Cardiovascular: Reports as per HPI, Reports no additional cardiovascular complaints, Reports chest pain, Denies diaphoresis, Denies pedal edema, Denies leg edema, Denies lightheadedness, Denies palpitations, Reports dyspnea and Reports dyspnea on exertion Respiratory: Respiratory: Reports as per HPI, Reports no additional respiratory complaints, Reports cough, Reports dyspnea and Reports dyspnea on exertion Gastrointestinal: Gastrointestinal: Reports as per HPI, Reports no additional gastrointestinal complaints, Denies abdominal pain, Denies melena, Denies bloating, Denies hematochezia, Denies nausea and Denies vomiting Genitourinary: Genitourinary: Report
--- NOTE | 2020-09-24 15:18 | PM.DS ---
DS: Admitting Diagnosis Admitting Diagnosis Admitting Diagnosis: cough, chest tightness DS: Discharge Diagnosis Discharge Diagnosis (1) Pulmonary edema: Code(s): J81.1 - Chronic pulmonary edema Status: Acute Assessment and Plan: On presentation, CTA of the chest was negative for PE but did show moderate right pleural effusion and pulmonary edema. She was started on IV Lasix. She has had good urine output with negative fluid balance. Most likely this is related to the uncontrolled atrial fibrillation. Cardiology was following along. She is currently on room air. She was successfully converted to NSR. Lsix stopped (2) Atrial fibrillation with RVR: Code(s): I48.91 - Unspecified atrial fibrillation Status: Acute Assessment and Plan: Patient has a hx of AFib last year after a procedure. She presents with SOB from pulmonary edema related to AFib/RVR. Started on Diltiazem drip and then changed to oral metoprolol. Lovenox was started but transitioned to Eliquis. MALLY showing EF 30-35% possibly related to uncontrolled rate. Patient underwent successful cardioversion 09/23/20. She was monitored overnight and did not have any recurrence. (3) YAQUELIN (obstructive sleep apnea): Code(s): G47.33 - Obstructive sleep apnea (adult) (pediatric) Status: Acute Assessment and Plan: Mostly compliant with treatment. We continued auto titrated CPAP here. (4) Hypertension: Code(s): I10 - Essential (primary) hypertension Status: Acute Assessment and Plan: BP markedly elevated at 172/128 on admission. These is concern that she is intermittently compliant with her BP medications. Amlodipine, losartan and hydrochlorothiazide were resumed. Metoprolol added and HCTZ changed to Spironolactone. BP became much better controlled. (5) Person under investigation for COVID-19: Code(s): Z20.822 - Contact with and (suspected) exposure to COVID-19 Status: Acute Assessment and Plan: She has been vaccinated with Pfizer vaccine in the month of July. She has been tested 5 days ago with same symptoms and was negative. She was retested here and was negative. (6) CHF (congestive heart failure): Qualifiers: Heart failure type: systolic Heart failure chronicity: acute Qualified Code(s): I50.21 - Acute systolic (congestive) heart failure Code(s): I50.9 - Heart failure, unspecified Status: Acute Assessment and Plan: Patietn with acute systolic CHF. CTA chest results as above. BNP 1450. MALLY showing EF 30-35% with [place] CHF related to AFib/RVR. Good results with Lasix and back to baseline. After discussing with Cardiology, will change to Spironolactone and stop HCTZ. Change to Toprol XL and continue ARB. No Lasix at discharge DS: Summary Hospital Course Reason for hospitalization: 50yo female with HTN and YAQUELIN here for SOB and found to have AFib/RVR. Please see H&P for details Hospital Course: Please see above for details of hospital course Status at Discharge Cognitive/behavioral status at discharge: stable Time Spent with Patient Time attestation: Total time spent providing and/or coordinating discharge services:38 minutes Time spent: Greater than 30 minutes Exam Narrative: Exam Narrative: AF 98.9 122/74 79 12 1000% ra Gen - NARD Chest - CTA bilaterally, nml RR CV - RRR S1/S2 Abd - Soft, NT/ND, Positive BS Ext - No pedal edema. 2+ DP Neuro - Alert and oriented. Nonfocal exam. Psych - Nml mood and affect Skin - Warm and dry DS: Data Data Completed and Pending Labs on day of discharge: Labs from last 24 hours 09/24/20 05:35 Sodium 138 Potassium 3.8 Chloride 102 Carbon Dioxide 31 H Anion Gap 5 L BUN 23 H Creatinine 1.30 H Estim Creat Clear Calc 64 Estimated GFR 53 L Glucose 98 Calcium 9.4 Magnesium 1.9 Preliminary micro results at discharge 09/20/20 11:38 Blood Culture
== END 2020-09-24 17:28 | disposition home or self-care (01) | DRG 201 ==
LOC: ANHED 15:34 → ANHIMU 15:46
PROVIDERS: Internal Medicine Cardiovascular Disease; Nurse Practitioner; Admitting Provider Internal Medicine Critical Care Medicine; Emergency Provider General Practice; PCP Family Medicine; Visit Provider Internal Medicine
PROC: 5A2204Z Restoration of Cardiac Rhythm, Single (ICD-10-PCS; principal; 2020-09-23 10:00)
PROC: 5A2204Z Restoration of Cardiac Rhythm, Single (ICD-10-PCS; CPT 93312; 2020-09-23 10:00)
DX: I48.91 Unspecified atrial fibrillation (principal); J81.1 Chronic pulmonary edema; G47.33 Obstructive sleep apnea (adult) (pediatric); Z20.822 Contact with and (suspected) exposure to COVID-19; I42.8 Other cardiomyopathies; I11.0 Hypertensive heart disease with heart failure; I50.21 Acute systolic (congestive) heart failure; E87.6 Hypokalemia; E66.9 Obesity, unspecified; Z68.34 Body mass index [BMI] 34.0-34.9, adult; Z79.82 Long term (current) use of aspirin; Z90.710 Acquired absence of both cervix and uterus; J90 Pleural effusion, not elsewhere classified
CPT/HCPCS: 36415; 71045; 71275; 80048; 80053; 80076; 83605; 83735; 83880; 84443; 84484; 85025; 85027; 85380; 85610; 85730; 86140; 87040; 92960; 93005; 93312; 93320; 93325; 96365; 96366; 96372; 96374; 96375; 99285; A9270; C9803; G0378; G0379; J1650; J1940; J2405; J2704; J7030; Q9967; U0003; U0005

== ENCOUNTER 2020-10-01 10:57 | Outpatient (CLI) | payer BC, SELFPAY ==
--- NOTE | 2020-10-01 12:09 | ECG_ITS ---
Measurements Intervals [place] Rate: 127 P: [place]: 0 QRS: 62 QRSD: 89 T: 13 QT: 323 QTc: 470 Interpretive Statements ATRIAL FIBRILLATION WITH RAPID VENTRICULAR RESPONSE ANTEROSEPTAL INFARCT, AGE INDETERMINATE BORDERLINE T WAVE ABNORMALITY- INFERIOR LEADS ABNORMAL ECG Electronically Signed On 10-01-2020 13:06:01 CDT by James Keller D.O.
[2020-10-01 12:15] LABS: Anion Gap 9 mmol/L (8-16); Blood Urea Nitrogen 16 mg/dL (7-17); Calcium 9.9 mg/dL (8.4-10.2); Carbon Dioxide 29 mmol/L (22-30); Chloride 103 mmol/L (98-107); Estimated Glomerular Filt Rate 58; Glucose 96 mg/dL (65-110); Potassium 4.3 mmol/L (3.4-5.0); Sodium 141 mmol/L (137-145)
== END 2020-10-01 10:58 | disposition home or self-care (01) ==
PROVIDERS: PCP Family Medicine; Visit Provider Internal Medicine
DX: I48.91 Unspecified atrial fibrillation (principal); I25.5 Ischemic cardiomyopathy
CPT/HCPCS: 36415; 80048; 93005

== ENCOUNTER 2020-11-13 17:14 | Emergency (ER) | payer BC, SELFPAY ==
[2020-11-13 17:47] VITALS: BP 136/103; PULSE 108; RESP 16; TEMP 35.8; O2SAT 100
--- NOTE | 2020-11-13 18:26 | ED.FEMALEGU ---
HPI - Female Genitourinary General Chief complaint: Urogenital-Female Stated complaint: STD Test Source: patient and RN notes reviewed Limitations: no limitations History of Present Illness HPI Narrative: The obese patient, on several meds, presents with vaginal discharge. Patient states she has 1/2-week history of discharge, also after anal receptive intercourse. No fever, rash pimples, frequency/urgency/dysuria, malodor. Related Data Home Medications Medication Instructions Recorded Confirmed amlodipine 5 mg PO DAILY 04/06/19 11/13/20 One-A-Day Women VitaCraves 1 tablet PO DAILY 09/20/20 11/13/20 losartan 100 mg PO DAILY 09/20/20 11/13/20 Allergies Allergy/AdvReac Type Severity Reaction Status Date / Time No Known Allergies Allergy Verified 11/13/20 18:20 Review of Systems Review of Systems: General/Constitutional: No weight loss,fever Eyes: N0: Redness,discharge Ears/Nose/Throat: No: Epistaxis,ear discharge Respiratory: Denies: Hemoptysis Gastrointestinal: No Vomiting, Bleeding-rectal Skin: No Lumps, eruption Neurologic: No Focal Weakness,Sz Hematologic: Denies: Petechiae/Purpura Psychiatric: No: Suicida ideationl All Other Systems: Reviewed and Negative [facility] Past Medical History Medical History Admission for tubal ligation Atrial fibrillation with RVR Hypertension Hypertension Miscarriage Obesity YAQUELIN (obstructive sleep apnea) Surgical History Surgical History H/O dilation and curettage H/O: hysterectomy [place] teeth removed Family History Family History Other Carcinoma of colon Other Cerebrovascular accident Sibling Diabetes mellitus Mother Hypertension Social History Social History Social History: 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 She is single and has 1 child. She is a lifelong nonsmoker. She rarely drinks alcohol. She does not have a durable power trademark attorney. the patient is listed as a full code. Smoking status: Never smoker Alcohol intake: current Drinks per week: 1 Substance use: never Last use: occasionally Gender identity (if verbalized by the patient): Female Spiritual care concerns: No Comments At time of signature, agree with nursing past medical, surgical, social and family history. There is no relevant family history pertinent to the presenting complaint Exam Narrative: General Appearance: Well appearing, Conjunctiva clear Ears: External ear normal Nose: Normal nose Mouth/Throat: Normal appearing, Normal lips Neck: Supple Respiratory: Airway patent, No respiratory distress Cardiovascular: RRR Abdomen: Soft, Non-tender, Musculoskeletal: Full ROM Skin: Warm, Dry Neurological: A&O x3, Normal affect Course Vital Signs Vital signs: Vital Signs Temperature 96.5 F L 11/13/20 17:47 Pulse Rate 108 H 11/13/20 17:47 Respiratory Rate 16 11/13/20 17:47 Blood Pressure 136/103 H 11/13/20 17:47 Pulse Oximetry 100 11/13/20 17:47 Temperature 96.5 F L 11/13/20 17:47 Pulse Rate 108 H 11/13/20 17:47 Respiratory Rate 16 11/13/20 17:47 Blood Pressure 136/103 H 11/13/20 17:47 Pulse Oximetry 100 11/13/20 17:47 MDM - Female Genitourinary Lab Data Labs: Lab Results 11/13/20 Range/Units 18:35 C.trachomatis RNA (TMA) Pending N.gonorrhoeae RNA (TMA) Pending T. vaginalis Amp RNA Pending Urine Glucose Negative Reference Range: Negative Urine Bilirubin Negative Reference Range: Negative Urine Ketone Negative Reference Range: Negative Urine Specific Mon[place] 1
[2020-11-13] MEDS: cefTRIAXone 500 MG VIAL IM (18:51)
[2020-11-13] MEDS: LIDOCAINE HCL 1% LOCAL INJ 20 ML VIAL 2.1 ML IM (18:56)
== END 2020-11-13 19:17 | disposition home or self-care (01) ==
PROVIDERS: Emergency Provider Emergency Medicine; PCP Physician Assistant
DX: N89.8 Other specified noninflammatory disorders of vagina (principal); I48.91 Unspecified atrial fibrillation; I10 Essential (primary) hypertension; G47.33 Obstructive sleep apnea (adult) (pediatric); E66.9 Obesity, unspecified; Z68.34 Body mass index [BMI] 34.0-34.9, adult
CPT/HCPCS: 81003; 87086; 87088; 87491; 87591; 87661; 96372; 99214; G0463; J0696

== ENCOUNTER 2021-03-29 08:16 | Inpatient (IN) | payer BC, SELFPAY ==
[2021-03-29] VITALS (62 sets, daily range): BP systolic 118–163; BP diastolic 88–137; PULSE 88–140; RESP 10–32; TEMP 36.2–37.1; O2SAT 90–100
--- NOTE | ~2021-03-29 | US_ITS ---
US abdomen limited INDICATION: Elevated liver function tests PROCEDURE: Realtime right upper abdominal ultrasound. COMPARISON: No prior studies for comparison. FINDINGS: The pancreas is normal without focal mass or pancreatic ductal dilation. Liver echotexture is normal without focal mass or intrahepatic biliary dilatation. There is normal directional flow i n the portal vein. The gallbladder is normal without stones, gallbladder wall thickening or pericholecystic fluid. Comm on bile duct measures 4 mm. No sonographic Harmon's sign. IMPRESSION: 1: Normal limited abdominal ultrasound. Reviewed, dictated and finalized at location B. UNITY FACILITATOR
--- NOTE | ~2021-03-29 | XR_ITS ---
XR chest 2V DATE: 03/29/2021 08:44 INDICATION: Cough, chest tightness for one week. History of atrial fibrillation. TECHNIQUE: PA and lateral views COMPARISON: 09/20/2020 portable AP chest 09/20/2020 CT pulmonary scan FINDINGS: There is bilateral lower lung infiltrate and/or atelectasis, including middle lobe, lingula and lower lobes. Mild cardiomegaly. No pulmonary vascular congestion or pleural effusion or pneumothorax. IMPRESSION: Bilateral lower lung infiltrate and/or atelectasis Reviewed, dictated and finalized at location A. MONIA REFRIGERATION WORKER
--- NOTE | 2021-03-29 08:18 | ECG_ITS ---
Measurements Intervals [place] Rate: 145 P: [place]: 0 QRS: 112 QRSD: 94 T: -42 QT: 299 QTc: 466 Interpretive Statements ATRIAL FIBRILLATION WITH RAPID VENTRICULAR RESPONSE RIGHT AXIS DEVIATION DELAYED PRECORDIAL R/S TRANSITION CANNOT RULE OUT SEPTAL INFARCT, AGE INDETERMINATE BORDERLINE T WAVE ABNORMALITY- DIFFUSE LEADS ABNORMAL ECG Electronically Signed On 03-29-2021 20:15:57 [employer] by James Keller D.O.
[2021-03-29 08:35] LABS: Basophils Percent Auto 0.4 % (0.2-1.2); Eosinophils Absolute Auto 0.1 K/mm3 (0-0.3); Eosinophils Percent Auto 0.7 % (0-4.4); Hematocrit 42.3 % (37.0-47.0); Immature Granulocyte Absolute 0.03 K/mm3 (0.00-0.031); Immature Granulocyte Percent A 0.3 % (0-0.5); Lymphocytes Absolute Auto 2.17 K/mm3 (0.9-3.2); Lymphocytes Percent Auto 23.2 % (18.3-44.2); Mean Corpuscular HGB Conc 33.1 g/dl (32-36); Mean Corpuscular Hemoglobin 30.2 pg (26-34); Mean Corpuscular Volume 91.4 fl (80-100); Mean Platelet Volume 9.3 fl (7.4-10.4); Monocytes Absolute Auto 0.6 K/mm3 (0.1-0.6); Neutrophils Absolute Auto 6.5 K/mm3 (1.3-6.7); Neutrophils Percent Auto 69.4 % (45.5-73.1); Platelet Count Result 335 k/mm3 (150-375); Red Blood Count 4.63 M/mm3 (4.2-5.4); Red Cell Distribution Width 15.1 % (11.5-14.5); White Blood Count 9.4 K/mm3 (4.5-10.0)
[2021-03-29 08:47] LABS: Alanine Aminotransferase 42 U/L (4-35); Albumin Level 4.1 g/dL (3.5-5.1); Alkaline Phosphatase 137 U/L (38-126); Anion Gap 11 mmol/L (8-16); Aspartate Amino Transferase 44 U/L (14-36); Bilirubin,Total 1.3 mg/dL (0.2-1.3); Blood Urea Nitrogen 10 mg/dL (7-17); Calcium 9.5 mg/dL (8.4-10.2); Carbon Dioxide 23 mmol/L (22-30); Chloride 106 mmol/L (98-107); Estimated CRCL calculation 81 ml/min; Estimated Glomerular Filt Rate > 60; Glucose 137 mg/dL (65-110); Lipase 100 U/L (23-300); Potassium 3.2 mmol/L (3.4-5.0); Sodium 140 mmol/L (137-145)
[2021-03-29 08:48] LABS: INR 1.1; Prothrombin Time 14.4 Seconds (11.1-14.7)
[2021-03-29 08:58] LABS: Troponin I < 0.012 ng/mL (0.000-0.034)
[2021-03-29] MEDS: dilTIAZem HCl INJ 25 MG/5 ML VIAL 10 MG IV PUSH ×2 (09:03→10:24)
--- NOTE | 2021-03-29 09:05 | PC.NURSE ---
pt took home po meds
--- NOTE | 2021-03-29 10:32 | ED.CHESTPAIN ---
HPI - Chest Pain General Chief Complaint: Chest Pain Stated Complaint: Chest pain Time Seen by Provider: 03/29/21 08:23 History of Present Illness HPI narrative: Patient is a 51-year-old female who presents ER with chest pain shortness of breath. Ongoing over the last week. Chest pain is worse with exertion. Shortness of breath is also worse with exertion but also with lying down flat. Compliant with home medication. Has history of A. fib and CHF. Follows with Dr. Reynoso. No new edema in the legs. Related Data Home Medications Medication Instructions Recorded Confirmed amlodipine 5 mg PO DAILY 04/06/19 03/29/21 One-A-Day Women VitaCraves 1 tablet PO DAILY 09/20/20 03/29/21 losartan 100 mg PO DAILY 09/20/20 03/29/21 apple cider vinegar 500 mg PO DAILY 03/29/21 03/29/21 Allergies Allergy/AdvReac Type Severity Reaction Status Date / Time No Known Allergies Allergy Verified 11/13/20 18:20 Review of Systems Review of Systems: All systems reviewed & are unremarkable except as noted in HPI and below Constitutional: Constitutional: Denies chills, Denies fever(s) and Denies weakness ENT: Denies nasal congestion and Denies sore throat Cardiovascular: Cardiovascular: Reports chest pain, Reports rapid heart rate and Denies radiating jaw, neck or arm pain Respiratory: Respiratory: Denies chest congestion, Denies cough, Reports dyspnea and Denies wheezing Gastrointestinal: Gastrointestinal: Denies abdominal pain, Denies nausea and Denies vomiting Neurologic: Denies focal weakness and Denies numbness [facility] Past Medical History Medical History Admission for tubal ligation Atrial fibrillation with RVR Hypertension Hypertension Miscarriage Obesity YAQUELIN (obstructive sleep apnea) Surgical History Surgical History H/O dilation and curettage H/O: hysterectomy [place] teeth removed Family History Family History Other Carcinoma of colon Other Cerebrovascular accident Sibling Diabetes mellitus Mother Hypertension Social History Social History Social History: 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 She is single and has 1 child. She is a lifelong nonsmoker. She rarely drinks alcohol. She does not have a durable power staff attorney. the patient is listed as a full code. Smoking status: Never smoker Alcohol intake: current Drinks per week: 1 Substance use: never Last use: occasionally Gender identity (if verbalized by the patient): Female Spiritual care concerns: No Exam Narrative: GENERAL: Well-appearing, well-nourished, and in no acute distress. HEAD: Normocephalic, atraumatic. EYES: PERRL and EOMI. CHEST: Clear to auscultation. No respiratory distress. HEART: Irregular regular rate and rhythm that is tachycardic. Normal peripheral pulses. ABDOMEN: Soft, nontender, nondistended. EXTREMITIES: Normal range of motion. No edema. SKIN: Warm, dry, no rash. NEURO: Alert and oriented x3. PSYCH: Normal mood and affect. Course Course Emergency Course: Admit to hospitalist service. Patient given 20 of diltiazem and home medications. Also received IV Lasix. Vital Signs Vital signs: Vital Signs Pulse Rate 140 H 03/29/21 08:19 Respiratory Rate 16 03/29/21 08:19 Blood Pressure 162/107 H 03/29/21 08:19 Pulse Oximetry 98 03/29/21 08:19 Pulse Rate 103 H 03/29/21 12:30 Respiratory Rate 22 H 03/29/21 12:30 Blood Pressure 146/112 H 03/29/21 12:01 Pulse Oximetry 98 03/29/21 12:30 MDM - Chest Pain Lab Data Result diagrams: 03/29/21 08:29 03/29/21 08:29 Labs: Lab Results 03/29/21 03/29/21 03/29/21 Range/Units 08:29 08:29 08:29 WBC 9.4 (4.5-10.0) K/mm3 RBC 4.63 (4.2-5.4) M/mm3 Hgb 14.0 (1
[2021-03-29 11:29] LABS: NT Pro B Type Natriuretic Pept 4390 pg/mL (5-100)
[2021-03-29] MEDS: FUROSEMIDE INJ 40 MG/4 ML VIAL IV PUSH (12:30)
[2021-03-29 13:06] LABS: Troponin I < 0.012 ng/mL (0.000-0.034)
--- NOTE | 2021-03-29 13:30 | PM.IMHP ---
H&P: HPI History of Present Illness Date/Time: 03/29/21 13:30 Chief Complaint: Chest pain. Narrative: This is a very pleasant 51-year-old female with paroxysmal atrial fibrillation, congestive heart failure, hypertension, and obstructive sleep apnea who presented to the emergency department earlier today from home for evaluation of chest pain. She reports ?flu-like? symptoms at the end of February including productive cough which has still lingered somewhat. About 1 week after her symptoms started to improve she noticed that she was getting short of breath and experiencing mid chest tightness with exertion. Her symptoms improve quickly with rest, however. With further questioning she also endorses orthopnea and wanda ankle edema over the past week or so. Due to ongoing symptoms she came in today for evaluation and on arrival to the emergency department she was found to be in atrial fibrillation with rapid ventricular response though she is not necessarily aware of the fast heart rate. Diltiazem 10 mg IV x1 has improved her rate and she is being admitted in this setting. Currently she has no complaints and she specifically denies fever, chills, sweats, sore throat, change in smell and taste, resting chest pain, pleuritic pain, nausea, vomiting, and diarrhea. SARS-CoV-2 by PCR was negative in the emergency department. Review of Systems Review of Systems: Twelve systems were reviewed and are negative except for as per HPI. [facility] Past Medical History Medical History (Updated 03/29/21 @ 15:54 by Maye Lockhart PA-C) Hypertension Obstructive sleep apnea on CPAP Paroxysmal atrial fibrillation Status post cardioversion in September 2020. Systolic congestive heart failure EF was 30 to 35% on TTE in September 2020 at time of cardioversion for atrial fibrillation. Surgical History Surgical History (Updated 03/29/21 @ 15:35 by Maye Lockhart PA-C) History of cardioversion (09/2020) For atrial fibrillation. History of dilation and curettage History of hysterectomy History of tubal ligation History of wisdom tooth extraction Family History Family History Other Carcinoma of colon Other Cerebrovascular accident Sibling Diabetes mellitus Mother Hypertension Social History Social History (Updated 03/29/21 @ 15:36 by Maye Lockhart PA-C) Social History: Lives in [place] [facility]. Lifelong nonsmoker. Occasional alcohol use in moderation. No illicit substance use. Surrogate decision maker: Lainey Lugo, mother. Code status: Full code. Meds Home Medications and Allergies Home Medications Medication Instructions Recorded Confirmed Type amlodipine 5 mg PO DAILY 04/06/19 03/29/21 History One-A-Day Women VitaCraves 1 tablet PO DAILY 09/20/20 03/29/21 History losartan 100 mg PO DAILY 09/20/20 03/29/21 History apixaban [Eliquis] 5 mg PO Q12HR #60 tablet 09/24/20 03/29/21 Rx metoprolol succinate [Toprol XL] 100 mg PO QAM #30 tablet 09/24/20 03/29/21 Rx spironolactone 25 mg PO QAM #30 tablet 09/24/20 03/29/21 Rx apple cider vinegar 500 mg PO DAILY 03/29/21 03/29/21 History Allergies Allergy/AdvReac Type Severity Reaction Status Date / Time No Known Allergies Allergy Verified 11/13/20 18:20 Vital Signs Vital Signs - 24 hr 03/29/21 08:19 03/29/21 08:23 03/29/21 08:24 Pulse Rate 140 H 137 H 136 H Respiratory Rate 16 22 H 15 Blood Pressure 162/107 H 162/107 H Pulse Oximetry 98 97 03/29/21 08:30 03/29/21 08:31 03/29/21 08:45 Pulse Rate 131 H 138 H 129 H Respiratory Rate 18 22 H 22 H Blood Pressure 163/106 H 152/131 H Pulse Oximetry 96 97 93 03/29/21 08:46 03/29/21 09:00 03/29/21 09:01 Pulse Rate 138 H 129 H 131 H Respiratory Rate 30 H 21 H 27 H Blood Pressure 162/119 H Pulse Oximetry 93 93 94 03/29/21 09:15 03/29/21 09:16 03/29/21 09:30 Pulse Rate 118 H 115 H 119 H Respiratory Rate 19 18 23 H Blood Pressur
[2021-03-29 14:48] LABS: SARS-CoV-2 RNA PCR Negative
--- NOTE | 2021-03-29 15:16 | ADMGEN ---
This patient, Antonella Lugo, was admitted to 2 Medical Room 256-. Patient/family oriented to hospital policies and general routines including ID bracelet, bed and alarms, visiting hours, pain management, procedures, bathroom and other care routines, personal items, smoking policy, room service/diet, and visiting hours. Information on how to activate the Rapid Response Team has been discussed. Patient/Family are encouraged to report perceived risks to care and to ask questions if they do not understand what they are told or what they should do.
[2021-03-29] MEDS: FUROSEMIDE INJ 40 MG/4 ML VIAL 20 MG IV PUSH (16:48)
[2021-03-29 16:57] LABS: Magnesium 1.9 mg/dL (1.6-2.3)
[2021-03-29 17:16] LABS: Troponin I < 0.012 ng/mL (0.000-0.034)
[2021-03-29 18:00] LABS: Hepatitis B Surface Antigen Negative (Negative)
[2021-03-29 18:06] LABS: HAV RESULT Negative (Negative); Hepatitis B Core IgM Result Negative (Negative)
[2021-03-29 18:17] LABS: Hepatitis C Virus Antibody Negative (Negative)
[2021-03-30] VITALS (14 sets, daily range): BP systolic 115–142; BP diastolic 88–108; PULSE 84–117; RESP 18–20; TEMP 36.1–36.8; O2SAT 98
[2021-03-30] MEDS: METOPROLOL SUCCINATE EXT REL 100 MG TABCR PO (02:10)
[2021-03-30 06:36] LABS: Alanine Aminotransferase 37 U/L (4-35); Albumin Level 3.5 g/dL (3.5-5.1); Alkaline Phosphatase 113 U/L (38-126); Anion Gap 9 mmol/L (8-16); Aspartate Amino Transferase 40 U/L (14-36); Bilirubin,Total 1.3 mg/dL (0.2-1.3); Blood Urea Nitrogen 11 mg/dL (7-17); Calcium 9.3 mg/dL (8.4-10.2); Carbon Dioxide 25 mmol/L (22-30); Chloride 104 mmol/L (98-107); Cholesterol 157 mg/dL (0-200); Estimated CRCL calculation 78 ml/min; Estimated Glomerular Filt Rate > 60; Glucose 96 mg/dL (65-110); HDL Direct 33 mg/dL; Potassium 3.2 mmol/L (3.4-5.0); Sodium 138 mmol/L (137-145); Triglycerides 67 mg/dL (<150)
[2021-03-30 06:47] LABS: LDL Cholesterol Direct 98 mg/dL
--- NOTE | 2021-03-30 09:22 | ECG_ITS ---
Measurements Intervals Balsam Rate: 109 P: NV: 0 QRS: 101 QRSD: 98 T: -77 QT: 360 QTc: 486 Interpretive Statements ATRIAL FIBRILLATION WITH RAPID VENTRICULAR RESPONSE RIGHT AXIS DEVIATION ANTEROSEPTAL INFARCT, AGE INDETERMINATE ST-T WAVE ABNORMALITY IN ANTEROLAT/INF LEADS- CONSIDER ISHCEMIA ABNORMAL ECG Electronically Signed On 03-30-2021 9:39:54 REIMBURSEMENT COORDINATOR by James Keller D.O.
--- NOTE | 2021-03-30 09:25 | PM.CNCAR ---
Assessment and Plan Assessment and plan (1) Atrial fibrillation with rapid ventricular response: Code(s): I48.91 - Unspecified atrial fibrillation Status: Acute Assessment and Plan: Heart rate remains rapid although better controlled since admission. She is not currently aware of her atrial fibrillation. It seems by history she was doing well likely maintaining sinus rhythm chills she became acutely ill the end of February with probable recurrence of atrial fibrillation with rapid ventricular response. She gradually became worse with decompensated heart failure found to be in AFib with RVR presentation. Discussed at length options including alternative medical therapy, MALLY guided cardioversion in attempt to restore sinus rhythm. Patient is interested in medical therapy for control of her atrial fibrillation. Discussed alternative such as amiodarone, sotalol among others. Discussed the concern for QT prolongation risk for ventricular arrhythmias such as torsades in the need for routine monitoring of the QT interval as an outpatient. We discussed the need for inpatient loading for 5 doses on telemetry with close observation and routine EKG to monitor QT timing interval and for ventricular arrhythmias. Patient verbalized understanding and is in agreement with this plan. We discussed the pros and cons in this regard as well as alternative such as adjustment in current beta-kelsie regimen although concern for recurrent atrial fibrillation resulting in decompensated heart failure would remain potentially problematic. All questions answered to her satisfaction. Will hold metoprolol for the time being based on heart rate control. (2) Acute on chronic HFrEF (heart failure with reduced ejection fraction): Code(s): I50.23 - Acute on chronic systolic (congestive) heart failure Status: Acute Assessment and Plan: As above, likely combination of LV dysfunction and uncontrolled atrial fibrillation. It is unclear for LV function improved and normalized in the interval maintaining sinus rhythm as she had not had cardiovascular follow-up post discharge from September 2020. We discussed this prospect and the importance of supportive medications. Repeat 2D echocardiogram to assess LV function with recommendations to follow. No symptoms suggestive of angina. As BP permits continue supportive medical therapy with losartan, spironolactone. If able to obtain Entresto this would be preferred as tolerated over losartan. However, this would require at least a 36 hour washout of losartan prior to initiation. (3) Nonischemic cardiomyopathy: Code(s): I42.8 - Other cardiomyopathies Status: Acute Assessment and Plan: Presumed nonischemic cardiomyopathy secondary to AFib with uncontrolled ventricular response initial diagnosis September 2020. She does not report symptoms suggestive angina nor has a history of CAD, however, this cannot be entirely excluded nonetheless. (4) Hypertension: Code(s): I10 - Essential (primary) hypertension Status: Acute Assessment and Plan: Monitor closely. Continue medical therapy as tolerated as above. (5) YAQUELIN (obstructive sleep apnea): Code(s): G47.33 - Obstructive sleep apnea (adult) (pediatric) Status: Acute Assessment and Plan: CPAP treatment. (6) Chronic anticoagulation: Code(s): Z79.01 - termite treater helper (current) use of anticoagulants Status: Acute Assessment and Plan: Continue Eliquis 5 mg b.i.d. without interruption. Monitor for bleeding. Follow H&H. History of Present Illness History of Present Illness Consult date/time: Date of service:03/30/21 09:25 Cardiology consultation at the request of Maye Lockhart of the [facility] service for opinion regarding CHF and atrial fibrillation with rapid ventricular response Requesting physician: Maye Lockhart PAZohra Consult reason: atrial fibrillation and congestive h
[2021-03-30 09:36] LABS: Free T4 Free Thyroxine Reflex 1.04 ng/dL (0.78-2.19)
[2021-03-30] MEDS: APIXABAN 5 MG TABLET PO ×2 (09:49→20:26)
[2021-03-30] MEDS: POTASSIUM CHLORIDE 20 MEQ TABLET PO (09:49)
[2021-03-30] MEDS: SPIRONOLACTONE 25 MG TABLET PO (09:49)
[2021-03-30] MEDS: LOSARTAN POTASSIUM 100 MG TABLET PO (09:49)
[2021-03-30] MEDS: FUROSEMIDE INJ 40 MG/4 ML VIAL 20 MG IV PUSH ×2 (09:49→16:52)
[2021-03-30] MEDS: SOTALOL HCL 80 MG TABLET PO ×2 (09:50→20:26)
[2021-03-30 10:33] LABS: Total Triiodothyronine (T3) 0.98 NG/ML (0.97-1.69)
--- NOTE | 2021-03-30 12:02 | P.PNIM_ITS ---
Progress Note: A&P Assessment and Plan (1) Atrial fibrillation with rapid ventricular response: Code(s): I48.91 - Unspecified atrial fibrillation Status: Acute Assessment and Plan: On presentation tachycardic in the 100s-110s. * Rate improved with IV diltiazem 10 mg x 1. * She has likely been in AFib for the last several weeks given symptomatology, she reported being acutely ill at the end of February with symptom onset at that time * She does have history of cardioversion * At this time she has opted to proceed with medical therapy for atrial fibrillation control * Appreciate cardiology consultation * Initiated on sotalol. Will need to remain hospitalized for 5 doses * Continue to monitor on telemetry * Metoprolol has been discontinued * Continue Eliquis for stroke prophylaxis (2) CHF exacerbation: Code(s): I50.9 - Heart failure, unspecified Status: Acute Assessment and Plan: Likely due to AFib/RVR. * Appreciate cardiology consultation * Continue Lasix 20 mg IV b.i.d. * Continue spironolactone * Continue losartan * Entresto being considered. Will ask care coordination for pricing. If affordable, would discontinue losartan and transition to Entresto after 36 hour losartan washout per Cardiology * Monitor intake and output * Echocardiogram pending (3) Chest tightness: Code(s): R07.89 - Other chest pain Status: Acute Assessment and Plan: Likely related to AFib/RVR * Resolved. No anginal symptoms * Acute coronary syndrome ruled out by serial troponins * Appreciate cardiology consultation (4) Hypokalemia: Code(s): E87.6 - Hypokalemia Status: Acute Assessment and Plan: Potassium 3.2 today * Likely due to IV diuretics * Magnesium levels are within normal limits * Administer 20 mEq p.o. KCl * Continue to monitor BMP daily (5) Obstructive sleep apnea on CPAP: Code(s): G47.33 - Obstructive sleep apnea (adult) (pediatric); Z99.89 - Dependence on other enabling machines and devices Status: Acute Assessment and Plan: CPAP will be provided for the patient to use while hospitalized. (6) Hypertension: Code(s): I10 - Essential (primary) hypertension Status: Acute Assessment and Plan: Blood pressures reviewed and were initially elevated with diastolic BP in the 100s to 110s. * Improved with diuresis. * Last BP 115/89 * Continue to monitor blood pressure trends and adjust antihypertensives as needed (7) Elevated LFTs: Code(s): R79.89 - Other specified abnormal findings of blood chemistry Status: Acute Assessment and Plan: Mildly elevated and noted on previous labs. * Hepatitis panel negative * RUQ ultrasound unremarkable * LFTs trending down. Continue to monitor Subjective Date/time seen: 03/30/21 12:02 Interval history: Date of service: 03/30/2021 Antonella Lugo is a 51-year-old female with a history of paroxysmal atrial fibrillation on chronic anticoagulation, YAQUELIN on CPAP, systolic CHF, and hypertension who is seen in follow-up for atrial fibrillation with rapid ventricular response and acute on chronic CHF exacerbation. She is feeling better today. She came in with complaints of persistent fatigue and shortness of breath. She states this all started when she was feeling very sick at the end of February. She states that these have both improved. She is feeling more rested and her shortness of breath is much better. She denies JACKSON. She
--- NOTE | 2021-03-30 12:02 | PM.IMPN ---
Progress Note: A&P Assessment and Plan (1) Atrial fibrillation with rapid ventricular response: Code(s): I48.91 - Unspecified atrial fibrillation Status: Acute Assessment and Plan: On presentation tachycardic in the 100s-110s. Rate improved with IV diltiazem 10 mg x 1. She has likely been in AFib for the last several weeks given symptomatology, she reported being acutely ill at the end of February with symptom onset at that time She does have history of cardioversion At this time she has opted to proceed with medical therapy for atrial fibrillation control Appreciate cardiology consultation Initiated on sotalol. Will need to remain hospitalized for 5 doses Continue to monitor on telemetry Metoprolol has been discontinued Continue Eliquis for stroke prophylaxis (2) CHF exacerbation: Code(s): I50.9 - Heart failure, unspecified Status: Acute Assessment and Plan: Likely due to AFib/RVR. Appreciate cardiology consultation Continue Lasix 20 mg IV b.i.d. Continue spironolactone Continue losartan Entresto being considered. Will ask care coordination for pricing. If affordable, would discontinue losartan and transition to Entresto after 36 hour losartan washout per Cardiology Monitor intake and output Echocardiogram pending (3) Chest tightness: Code(s): R07.89 - Other chest pain Status: Acute Assessment and Plan: Likely related to AFib/RVR Resolved. No anginal symptoms Acute coronary syndrome ruled out by serial troponins Appreciate cardiology consultation (4) Hypokalemia: Code(s): E87.6 - Hypokalemia Status: Acute Assessment and Plan: Potassium 3.2 today Likely due to IV diuretics Magnesium levels are within normal limits Administer 20 mEq p.o. KCl Continue to monitor BMP daily (5) Obstructive sleep apnea on CPAP: Code(s): G47.33 - Obstructive sleep apnea (adult) (pediatric); Z99.89 - Dependence on other enabling machines and devices Status: Acute Assessment and Plan: CPAP will be provided for the patient to use while hospitalized. (6) Hypertension: Code(s): I10 - Essential (primary) hypertension Status: Acute Assessment and Plan: Blood pressures reviewed and were initially elevated with diastolic BP in the 100s to 110s. Improved with diuresis. Last BP 115/89 Continue to monitor blood pressure trends and adjust antihypertensives as needed (7) Elevated LFTs: Code(s): R79.89 - Other specified abnormal findings of blood chemistry Status: Acute Assessment and Plan: Mildly elevated and noted on previous labs. Hepatitis panel negative RUQ ultrasound unremarkable LFTs trending down. Continue to monitor Subjective Date/time seen: 03/30/21 12:02 Interval history: Date of service: 03/30/2021 Antonella Lugo is a 51-year-old female with a history of paroxysmal atrial fibrillation on chronic anticoagulation, YAQUELIN on CPAP, systolic CHF, and hypertension who is seen in follow-up for atrial fibrillation with rapid ventricular response and acute on chronic CHF exacerbation. She is feeling better today. She came in with complaints of persistent fatigue and shortness of breath. She states this all started when she was feeling very sick at the end of February. She states that these have both improved. She is feeling more rested and her shortness of breath is much better. She denies JACKSON. She previously had a cough but states this is now resolved. She denies orthopnea but does sleep with her head elevated. She denies any episodes of chest pain. No palpitations. She was unaware of her tachycardia and denied racing heart. She had some swelling in her lower extremities that she believes has improved. Her appetite is fair. Denies nausea, vomiting, dizziness, lightheadedness. She has no additional concerns. Review of Systems Review of Dimdim
--- NOTE | 2021-03-30 13:00 | ECG_ITS ---
Measurements Intervals Waucoma Rate: 109 P: WV: 0 QRS: 120 QRSD: 90 T: -68 QT: 370 QTc: 499 Interpretive Statements ATRIAL FIBRILLATION WITH RAPID VENTRICULAR RESPONSE VENTRICULAR PREMATURE COMPLEXES RIGHT AXIS DEVIATION ANTEROSEPTAL INFARCT, AGE INDETERMINATE BORDERLINE ST-T WAVE ABNORMALITY- ANTEROLAT/INF LEADS ABNORMAL ECG Electronically Signed On 03-30-2021 13:45:09 HOOP MACHINE OPERATOR by James Keller D.O.
--- NOTE | 2021-03-30 15:56 | ECHO_ITS ---
Patient Info Name: Antonella Lugo Age: 51 years : 1970 Gender: Female Ht: 71 in Wt: 249 lbs BSA: 2.42 m2 HR: 103 bpm BP: 142 / 89 mmHg Heart Rhythm: Atrial Fibrillation Technical Quality: Fair Exam Date: 03/30/2021 10:26 AM Exam Location: [facility] Pulmonary Patient Status: Outpatient Admit Date: 03/29/2021 Staff Ordering Physician: Maye Lockhart PA-C Store Deli Manager: Octavia Guerin RDCS Attending Provider: Cassandra Carnes PA-C Referring Physician: Chantelle MARTIN; Exam Type: CA echo doppler color flow Study Info Indications - AFIB/RVR, CHF, HTN, CHEST TIGHTNESS Complete two-dimensional, color flow and Doppler transthoracic echocardiogram is performed. Summary 1. Complete two-dimensional, color flow and Doppler transthoracic echocardiogram is performed. 2. Left ventricular chamber dimension is severely enlarged. 3. Left ventricular systolic function is severely reduced, estimated at 20-25%. 4. Left atrial chamber dimension is severely enlarged. 5. Modest mitral regurgitation because of annular dilation. 6. Atrial fibrillation. Left Ventricle Left ventricular chamber dimension is severely enlarged. Left ventricular systolic function is severely reduced, estimated at 20-25%. Right Ventricle Right ventricular chamber dimension is normal. Left Atria Left atrial chamber dimension is severely enlarged. Right Atria Right atrial chamber dimension is mildly enlarged. Aortic Valve The aortic valve is trileaflet. There is mild aortic valve sclerosis. Pulmonic Valve The pulmonic valve is normal. Mitral Valve The mitral valve has normal leaflets. There is trace mitral valve regurgitation. The mitral valve annulus is mildly calcified. Tricuspid Valve The tricuspid valve leaflets are normal. There is trace tricuspid valve regurgitation. Pericardium/Pleural The pericardium appears normal. Aorta The aortic root size at the sinus of Valsalva is normal. Left Ventricular Outflow Tract Name Value Normal LVOT 2D LVOT Diameter 2.0 cm LVOT Doppler LVOT Peak Gradient 1 mmHg LVOT Mean Gradient 0 mmHg LVOT VTI 7 cm LVOT VTI/AV VTI Ratio 0.8 LVOT Stroke Volume 21 ml LVOT CO 2.3 l/min LVOT CI 0.9 l/min/m2 Pulmonic Valve Name Value Normal RVOT Doppler RVOT Peak Gradient 1 mmHg PV Doppler PV Peak Gradient 1 mmHg Mitral Valve Name Value Normal
--- NOTE | 2021-03-30 16:39 | PM.EVENT ---
Event Note Event Note Event Note: Reviewed repeat EKG from this afternoon, post first sotalol dose. Discussed with Dr. Reyes, recommendation to continue with current dosing of 80mg sotalol b.i.d.
[2021-03-31] VITALS (15 sets, daily range): BP systolic 107–133; BP diastolic 78–98; PULSE 57–128; RESP 18–20; TEMP 35.8–36.4; O2SAT 96–100
[2021-03-31 05:57] LABS: Anion Gap 8 mmol/L (8-16); Blood Urea Nitrogen 15 mg/dL (7-17); Calcium 9.6 mg/dL (8.4-10.2); Carbon Dioxide 30 mmol/L (22-30); Chloride 102 mmol/L (98-107); Estimated CRCL calculation 65 ml/min; Estimated Glomerular Filt Rate 57; Glucose 106 mg/dL (65-110); Potassium 3.7 mmol/L (3.4-5.0); Sodium 140 mmol/L (137-145)
[2021-03-31] MEDS: APIXABAN 5 MG TABLET PO ×2 (08:58→20:16)
[2021-03-31] MEDS: LOSARTAN POTASSIUM 100 MG TABLET PO (08:59)
[2021-03-31] MEDS: FUROSEMIDE INJ 40 MG/4 ML VIAL 20 MG IV PUSH ×2 (08:59→16:08)
[2021-03-31] MEDS: SOTALOL HCL 80 MG TABLET PO ×2 (08:59→20:16)
[2021-03-31] MEDS: SPIRONOLACTONE 25 MG TABLET PO (08:59)
--- NOTE | 2021-03-31 10:56 | PM.PNCARD ---
Progress Note: A&P Assessment and Plan (1) Atrial fibrillation with rapid ventricular response: Code(s): I48.91 - Unspecified atrial fibrillation Status: Acute Assessment and Plan: Heart rate remains unacceptably rapid particularly given severe LV dysfunction EF 20-25%. She is not currently aware of her atrial fibrillation. She gradually became worse with decompensated heart failure found to be in AFib with RVR presentation. - Once again, we discussed at length options including alternative medical therapy, MALLY guided cardioversion in attempt to restore sinus rhythm. Patient is interested in medical therapy for control of her atrial fibrillation. Discussed alternative such as amiodarone, sotalol among others. Discussed the concern for QT prolongation risk for ventricular arrhythmias such as torsades in the need for routine monitoring of the QT interval as an outpatient. -Continue telemetry with close observation and routine EKG to monitor QT timing interval and for ventricular arrhythmias. precise QT interval difficult to measure due to AFib with RVR but appears to be acceptable with QT 370 QTc 499 manual measuring closer to 400 millisecond again difficult to precisely measure given circumstances. If significant prolongation particularly in sinus rhythm discussed need to discontinue sotalol in favor of alternative antiarrhythmic therapy. She understands. -Given uncontrolled heart rate will plan for MALLY guided cardioversion with Anesthesiology per her request and high risk due to severe LV dysfunction EF 20 25% tomorrow. Keep NPO after midnight. Continue systemic anticoagulation without interruption. -Continue sotalol with EKG 2 hours post administration. All questions answered to her satisfaction. (2) Acute on chronic HFrEF (heart failure with reduced ejection fraction): Code(s): I50.23 - Acute on chronic systolic (congestive) heart failure Status: Acute Assessment and Plan: As above, likely combination of LV dysfunction and uncontrolled atrial fibrillation. -Discontinue losartan in favor of Entresto 24/26 mg twice daily with 36 hour washout to begin AM 04/02/21. (3) Nonischemic cardiomyopathy: Code(s): I42.8 - Other cardiomyopathies Status: Acute Assessment and Plan: -EF 20-25% worse than previously noted. while it is unclear seems unlikely to me that her LV function improved significantly in the interval presumably maintaining sinus rhythm until she became more acutely ill in of February date in with symptoms suggestive of recurrence of AFib. She states her PCP did not noted on exam and she had no symptoms suggestive of recurrent AFib. However, we also discussed likely need for left heart catheterization for delineation of her coronary anatomy although I suspect secondary to nonischemic etiology underlying CAD cannot be entirely excluded. However, given need to discontinue anticoagulation and interruption particularly given ongoing AFib with RVR this must be a secondary plan as her AFib must be primarily addressed as this at least will contribute to risk for worsening LV dysfunction and heart failure if left uncontrolled. She verbalized understanding and agreed with plan of care. Therefore, focus will be on management of her atrial fibrillation with follow-up as an outpatient with a contact person she must establish with as soon as possible. She understands the importance in this regard. I am not certain as to why she did not establish with a contact person when she knew she could not see us due to insurance limitations when we 1st met her In the hospital September 2020. She does not report symptoms suggestive angina nor has a history of CAD, however, this cannot be entirely excluded nonetheless. (4) Hypertension: Code(s): I10 - Essential (primary) hypertension Status: Acute Assessment and Plan: Monitor closely with discontinuation of losartan in favor of En
--- NOTE | 2021-03-31 11:13 | ECG_ITS ---
Measurements Intervals [place] Rate: 105 P: [place]: 0 QRS: 110 QRSD: 97 T: -89 QT: 374 QTc: 494 Interpretive Statements ATRIAL FIBRILLATION WITH RAPID VENTRICULAR RESPONSE RIGHT AXIS DEVIATION ANTEROSEPTAL INFARCT, AGE INDETERMINATE T WAVE ABNORMALITY IN ANTEROLAT/INF LEADS- CONSIDER ISCHEMIA BASELINE ARTIFACT- I, II, III ABNORMAL ECG Electronically Signed On 03-31-2021 11:35:57 [employer] by James Keller D.O.
--- NOTE | 2021-03-31 12:37 | P.PNIM_ITS ---
Progress Note: A&P Assessment and Plan (1) Atrial fibrillation with rapid ventricular response: Code(s): I48.91 - Unspecified atrial fibrillation Status: Acute Assessment and Plan: On presentation tachycardic in the 100s-110s. * Rate improved with IV diltiazem 10 mg x 1. * She has likely been in AFib for the last several weeks given symptomatology, she reported being acutely ill at the end of February with symptom onset at that time * She does have history of cardioversion in September 2020 * Cardiology consult placed * At this time she has opted to proceed with medical therapy for atrial fibrillation control * Initiated on sotalol. Will need to remain hospitalized for 5 doses. * Metoprolol has been discontinued * Continue Eliquis for stroke prophylaxis * Continue to monitor on telemetry * Heart rate continues to be rapid - per cardiology given uncontrolled heart rate will plan for MALLY guided cardioversion with Anesthesiology per her request and high risk due to severe LV dysfunction EF 20 25% tomorrow. Keep NPO after midnight. Continue systemic anticoagulation without interruption. (2) CHF exacerbation: Code(s): I50.9 - Heart failure, unspecified Status: Acute Assessment and Plan: Likely due to AFib/RVR. * Appreciate cardiology consultation * Continue Lasix 20 mg IV b.i.d. * Continue spironolactone * Continue losartan * Discontinue losartan in favor of Entresto 24/26 mg twice daily with 36 hour washout to begin AM 04/02/21. * Echo shows severe LV dysfunction EF 20-25% (3) Chest tightness: Code(s): R07.89 - Other chest pain Status: Acute Assessment and Plan: Likely related to AFib/RVR * Resolved. No anginal symptoms * Acute coronary syndrome ruled out by serial troponins * Appreciate cardiology consultation (4) Hypokalemia: Code(s): E87.6 - Hypokalemia Status: Acute Assessment and Plan: Resolved. * Likely due to IV diuretics * Magnesium levels are within normal limits * Monitored and replaced as appropriate (5) Obstructive sleep apnea on CPAP: Code(s): G47.33 - Obstructive sleep apnea (adult) (pediatric); Z99.89 - Dependence on other enabling machines and devices Status: Acute Assessment and Plan: CPAP will be provided for the patient to use while hospitalized. (6) Hypertension: Code(s): I10 - Essential (primary) hypertension Status: Acute Assessment and Plan: Blood pressures reviewed and were initially elevated with diastolic BP in the 100s to 110s. * Improved with diuresis. * Last BP 133/89 * Continue to monitor blood pressure trends and adjust antihypertensives as needed (7) Elevated LFTs: Code(s): R79.89 - Other specified abnormal findings of blood chemistry Status: Acute Assessment and Plan: Mildly elevated and noted on previous labs. * Hepatitis panel negative * RUQ ultrasound unremarkable * LFTs trending down. Continue to monitor Subjective Date/time seen: 03/31/21 12:37 Interval history: Antonella Lugo is a 51-year-old female with a history of paroxysmal atrial fibrillation on chronic anticoagulation, YAQUELIN on CPAP, systolic CHF, and hypertension who is seen in follow-up for atrial fibrillation with rapid ventricular response and acute on chronic CHF exacerbation. Pt feels good currently and has no complaints. Denies cp, sob, palpitations, dizziness, leg pain/swelling. Review of Systems
--- NOTE | 2021-03-31 12:37 | PM.IMPN ---
Progress Note: A&P Assessment and Plan (1) Atrial fibrillation with rapid ventricular response: Code(s): I48.91 - Unspecified atrial fibrillation Status: Acute Assessment and Plan: On presentation tachycardic in the 100s-110s. Rate improved with IV diltiazem 10 mg x 1. She has likely been in AFib for the last several weeks given symptomatology, she reported being acutely ill at the end of February with symptom onset at that time She does have history of cardioversion in September 2020 Cardiology consult placed At this time she has opted to proceed with medical therapy for atrial fibrillation control Initiated on sotalol. Will need to remain hospitalized for 5 doses. Metoprolol has been discontinued Continue Eliquis for stroke prophylaxis Continue to monitor on telemetry Heart rate continues to be rapid - per cardiology given uncontrolled heart rate will plan for MALLY guided cardioversion with Anesthesiology per her request and high risk due to severe LV dysfunction EF 20 25% tomorrow. Keep NPO after midnight. Continue systemic anticoagulation without interruption. (2) CHF exacerbation: Code(s): I50.9 - Heart failure, unspecified Status: Acute Assessment and Plan: Likely due to AFib/RVR. Appreciate cardiology consultation Continue Lasix 20 mg IV b.i.d. Continue spironolactone Continue losartan Discontinue losartan in favor of Entresto 24/26 mg twice daily with 36 hour washout to begin AM 04/02/21. Echo shows severe LV dysfunction EF 20-25% (3) Chest tightness: Code(s): R07.89 - Other chest pain Status: Acute Assessment and Plan: Likely related to AFib/RVR Resolved. No anginal symptoms Acute coronary syndrome ruled out by serial troponins Appreciate cardiology consultation (4) Hypokalemia: Code(s): E87.6 - Hypokalemia Status: Acute Assessment and Plan: Resolved. Likely due to IV diuretics Magnesium levels are within normal limits Monitored and replaced as appropriate (5) Obstructive sleep apnea on CPAP: Code(s): G47.33 - Obstructive sleep apnea (adult) (pediatric); Z99.89 - Dependence on other enabling machines and devices Status: Acute Assessment and Plan: CPAP will be provided for the patient to use while hospitalized. (6) Hypertension: Code(s): I10 - Essential (primary) hypertension Status: Acute Assessment and Plan: Blood pressures reviewed and were initially elevated with diastolic BP in the 100s to 110s. Improved with diuresis. Last BP 133/89 Continue to monitor blood pressure trends and adjust antihypertensives as needed (7) Elevated LFTs: Code(s): R79.89 - Other specified abnormal findings of blood chemistry Status: Acute Assessment and Plan: Mildly elevated and noted on previous labs. Hepatitis panel negative RUQ ultrasound unremarkable LFTs trending down. Continue to monitor Subjective Date/time seen: 03/31/21 12:37 Interval history: Antonella Lugo is a 51-year-old female with a history of paroxysmal atrial fibrillation on chronic anticoagulation, YAQUELIN on CPAP, systolic CHF, and hypertension who is seen in follow-up for atrial fibrillation with rapid ventricular response and acute on chronic CHF exacerbation. Pt feels good currently and has no complaints. Denies cp, sob, palpitations, dizziness, leg pain/swelling. Review of Systems Review of Systems: General: Denies fevers Eyes: Denies vision changes ENT: Denies nasal congestion or sore throat Respiratory: Denies cough or shortness of breath Cardiovascular: Denies chest pain or lower extremity edema Gastrointestinal: Denies abdominal pain, vomiting, or diarrhea Genitourinary: Denies dysuria Musculoskeletal: Denies back pain Neurological: Denies headache or motor weakness Integumentary: Denies rash Exam Narrative: Ms. Lugo is a well-nouris
[2021-04-01] VITALS (18 sets, daily range): BP systolic 109–140; BP diastolic 74–99; PULSE 52–128; RESP 16–20; TEMP 35.9–36.7; O2SAT 96–100
[2021-04-01 05:57] LABS: Basophils Percent Auto 0.4 % (0.2-1.2); Eosinophils Absolute Auto 0.1 K/mm3 (0-0.3); Eosinophils Percent Auto 1.5 % (0-4.4); Hematocrit 42.7 % (37.0-47.0); Hemoglobin 13.8 g/dL (12.0-15.0); Immature Granulocyte Absolute 0.02 K/mm3 (0.00-0.031); Immature Granulocyte Percent A 0.3 % (0-0.5); Lymphocytes Absolute Auto 2.35 K/mm3 (0.9-3.2); Lymphocytes Percent Auto 31.3 % (18.3-44.2); Mean Corpuscular HGB Conc 32.3 g/dl (32-36); Mean Corpuscular Hemoglobin 30.1 pg (26-34); Mean Platelet Volume 9.3 fl (7.4-10.4); Monocytes Absolute Auto 0.7 K/mm3 (0.1-0.6); Monocytes Percent Auto 8.9 % (2.6-8.5); Neutrophils Absolute Auto 4.3 K/mm3 (1.3-6.7); Neutrophils Percent Auto 57.6 % (45.5-73.1); Platelet Count Result 310 k/mm3 (150-375); Red Blood Count 4.59 M/mm3 (4.2-5.4); Red Cell Distribution Width 14.7 % (11.5-14.5); White Blood Count 7.5 K/mm3 (4.5-10.0)
[2021-04-01 06:13] LABS: Alanine Aminotransferase 33 U/L (4-35); Albumin Level 3.8 g/dL (3.5-5.1); Alkaline Phosphatase 97 U/L (38-126); Anion Gap 7 mmol/L (8-16); Aspartate Amino Transferase 36 U/L (14-36); Bilirubin,Total 0.9 mg/dL (0.2-1.3); Blood Urea Nitrogen 17 mg/dL (7-17); Calcium 9.3 mg/dL (8.4-10.2); Carbon Dioxide 33 mmol/L (22-30); Chloride 102 mmol/L (98-107); Estimated CRCL calculation 71 ml/min; Estimated Glomerular Filt Rate > 60; Glucose 103 mg/dL (65-110); Potassium 3.4 mmol/L (3.4-5.0); Sodium 142 mmol/L (137-145)
--- NOTE | 2021-04-01 09:07 | PC.NURSE ---
I spoke with Racquel from [facility]. She requested I give eliquis and sotolol with a sip of water. Do not give lasix or spironolactone until after MALLY.
[2021-04-01] MEDS: SOTALOL HCL 80 MG TABLET PO ×2 (09:15→21:17)
[2021-04-01] MEDS: APIXABAN 5 MG TABLET PO ×2 (09:15→21:17)
--- NOTE | 2021-04-01 10:52 | WPDANESEPPF ---
Anes - Initial Pre Proc Eval Procedure: Operation Date: 04/01/21 13:30 Proposed Procedures p Trans Esophageal Echo - Quinton Cole MD s Electrical Cardioversion - Quinton Cole MD Date/Time: 04/01/21 10:52 Surgeon: Evangelina Botello PA-C Pre Op Diagnosis: Chest pain/afib rvr Patient Data Age: 51 Gender: F Height: 1.8 m Weight: 101.8 kg Last Vital Signs Temp 35.9 C L 04/01/21 05:36 Pulse 94 04/01/21 09:15 Resp 20 04/01/21 05:36 BP 140/99 H 04/01/21 05:36 Pulse Ox 96 04/01/21 05:36 Allergies Allergy/AdvReac Type Severity Reaction Status Date / Time No Known Allergies Allergy Verified 11/13/20 18:20 Home Medications Medication Instructions Recorded Confirmed Type amlodipine 5 mg PO DAILY 04/06/19 03/29/21 History One-A-Day Women VitaCraves 1 tablet PO DAILY 09/20/20 03/29/21 History losartan 100 mg PO DAILY 09/20/20 03/29/21 History apixaban [Eliquis] 5 mg PO Q12HR #60 tablet 09/24/20 03/29/21 Rx metoprolol succinate [Toprol XL] 100 mg PO QAM #30 tablet 09/24/20 03/29/21 Rx spironolactone 25 mg PO QAM #30 tablet 09/24/20 03/29/21 Rx apple cider vinegar 500 mg PO DAILY 03/29/21 03/29/21 History Laboratory Tests 04/01/21 04/01/21 05:42 05:42 WBC 7.5 K/mm3 K/mm3 (4.5-10.0) RBC 4.59 M/mm3 M/mm3 (4.2-5.4) Hgb 13.8 g/dL g/dL (12.0-15.0) Hct 42.7 % % (37.0-47.0) MCV 93.0 fl fl (80-100) MCH 30.1 pg pg (26-34) MCHC 32.3 g/dl g/dl (32-36) RDW 14.7 % H % (11.5-14.5) Plt Count 310 k/mm3 k/mm3 (150-375) MPV 9.3 fl fl (7.4-10.4) Immature Gran % (Auto) 0.3 % % (0-0.5) Neut % (Auto) 57.6 % % (45.5-73.1) Lymph % (Auto) 31.3 % % (18.3-44.2) [place] % (Auto) 8.9 % H % (2.6-8.5) Eos % (Auto) 1.5 % % (0-4.4) Baso % (Auto) 0.4 % % (0.2-1.2) Lymph # (Auto) 2.35 K/mm3 K/mm3 (0.9-3.2) [place] # (Auto) 0.7 K/mm3 H K/mm3 (0.1-0.6) Eos # (Auto) 0.1 K/mm3 K/mm3 (0-0.3) Baso # (Auto) 0.0 K/mm3 K/mm3 (0.0-0.1) Abs Immat Gran (auto) 0.02 K/mm3 K/mm3 (0.00-0.031) Absolute Neuts (auto) 4.3 K/mm3 K/mm3 (1.3-6.7) Absolute Nucleated RBC 0.0 K/mm3 K/mm3 (0.0-0.012) Nucleated RBC % 0.0 % % (0.0-0.2) Sodium 142 mmol/L mmol/L (137-145) Potassium 3.4 mmol/L mmol/L (3.4-5.0) Chloride 102 mmol/L mmol/L (98-107) Carbon Dioxide 33 mmol/L H mmol/L (22-30) Anion Gap 7 mmol/L L mmol/L (8-16) BUN 17 mg/dL mg/dL (7-17) Creatinine 1.10 mg/dL H mg/dL (0.7-1.0) Estim Creat Clear Calc 71 ml/min ml/min Estimated GFR > 60 (59 - ) Glucose 103 mg/dL mg/dL (65-110) Calcium 9.3 mg/dL mg/dL (8.4-10.2) Total Bilirubin 0.9 mg/dL mg/dL (0.2-1.3) AST 36 U/L U/L (14-36) ALT 33 U/L U/L (4-35) Alkaline Phosphatase 97 U/L U/L (38-126) Total Protein 6.0 g/dL L g/dL (6.3-8.2) Albumin 3.8 g/dL g/dL (3.5-5.1) Patient hx anesthesia problems: none Family hx anesthesia problems: none Results Review: All pre-operative results and documents have been reviewed as part of the pre-operative evaluation. [facility] Past Medical History Medical History Hypertension Obstructive sleep apnea on CPAP Paroxysmal atrial fibrillation Status post cardioversion in September 2020. Systolic congestive heart failure EF was 30 to 35% on TTE in September 2020 at time of cardioversion for atrial fibrillation. Surgical History Surgical History History of cardioversion (09/2020) For atrial fibrillation. History of dilation and curettage History of hysterectomy History of tubal ligation History of wisdom tooth extraction Family History Family History (Reviewed 03/30/21 @ 09:27 by Jairon Morales
--- NOTE | 2021-04-01 11:00 | ECG_ITS ---
Measurements Intervals [place] Rate: 100 P: [place]: 0 QRS: 121 QRSD: 93 T: -64 QT: 379 QTc: 491 Interpretive Statements ATRIAL FIBRILLATION WITH RAPID VENTRICULAR RESPONSE RIGHT AXIS DEVIATION CANNOT RULE OUT SEPTAL INFARCT, AGE INDETERMINATE BORDERLINE T WAVE ABNORMALITY- ANTEROLAT/INF LEADS ABNORMAL ECG Electronically Signed On 04-01-2021 12:00:57 [employer]ER OPERATOR by James Keller D.O.
--- NOTE | 2021-04-01 13:18 | WPDTECDV ---
MALLY with Cardioversion Date of procedure: 04/01/21 Procedure Type: Transesophageal echocardiogram guided elective electrical cardioversion Diagnosis: atrial fibrillation with rapid ventricular response Indications: atrial fibrillation with rapid ventricular response Description of Procedure: Brief history present illness: Patient is a very pleasant 51-year-old female with a past medical history significant for moderate LV systolic dysfunction, atrial fibrillation with rapid ventricular response, heart failure with reduced ejection fraction, YAQUELIN on CPAP, hypertension initially diagnosed September 2020 who presents once again with worsening shortness of breath, fatigue decompensated heart failure found to be in atrial fibrillation with rapid ventricular response. Patient had been on systemic anticoagulation but missed several doses approximately 3 weeks ago. This hospitalization she was initiated on sotalol loading with persistent atrial fibrillation with rapid ventricular response now referred for transesophageal echocardiogram-guided elective electrical cardioversion in attempt to restore sinus rhythm. Procedure in detail: After verbal and written informed consent was obtained the patient risks, benefits, and alternatives explained in detail the patient agreed to proceed with the plan of care as outlined above. Patient was evaluated at bedside in the gastroenterology procedure room. On examination, neck was supple with normal range of motion, no restrictions to opening of the oral cavity, jaw angle and posterior hypopharynx was clear. Lungs were clear to auscultation. Patient was placed in appropriate 30 to 45 degree angle in a supine, slight left lateral decubitus position. Patient was monitored throughout the study with telemetry, oxygen saturation, end-tidal CO2 monitoring, blood pressure, heart rate, and respirations. Anterior and posterior defibrillator pads placed in the appropriate positions. After oral bite block placed and adequate sedation administered by Anesthesiology, the MALLY probe was advanced through the oral bite block and advanced into the posterior hypopharynx and into the esophagus easily and without complication. Multiple, multiplanar echocardiographic images were obtained in multiple standard re-projections. Pulsed wave, continuous-wave, and color-flow Doppler were utilized in conjunction with this study. At the conclusion of the study, the transesophageal echocardiogram probe was removed easily and without complication. Patient tolerated the procedure well without difficulty. Patient was in atrial fibrillation throughout the study. Sedation: Sedation/Anesthesia administration: Patient denied previous intolerance or complications with anesthesia/sedation. Please see Anesthesiology documentation for anesthesia details and sedation protocol. Findings: FINDINGS: LEFT VENTRICLE: Severely enlarged with severe global LV systolic dysfunction visually estimated EF 20-25%. normal LV wall thickness. RIGHT VENTRICLE: Mild enlargement with moderate systolic dysfunction. LEFT ATRIUM: Severely enlarged with fairly dense spontaneous contrast. RIGHT ATRIUM: Moderately enlarged INTERATRIAL SEPTUM: Interatrial septum is anatomically normal without evidence of shunt with color-flow Doppler nor with injection of agitated saline. MITRAL VALVE: Mitral valve is anatomically with evidence of malcoaptation resulting in separate regurgitant jets both centrally located and eccentric overall moderate regurgitation. AORTIC VALVE: The aortic valve was an anatomically normal 3 leaflet structure with normal leaflet excursion and no regurgitation identified. TRICUSPID VALVE: The tricuspid valve is anatomically normal with normal leaflet excursion with mild regurgitation identified. No mobile elements identified. PULMONIC VALVE: Pulmonic valve was not well visualized, however, trivial regurgitation was identified. LEFT ATRIAL APPENDAGE: Anatomicall
--- NOTE | 2021-04-01 13:39 | P.PNIM_ITS ---
Progress Note: A&P Assessment and Plan (1) Atrial fibrillation with rapid ventricular response: Code(s): I48.91 - Unspecified atrial fibrillation Status: Acute Assessment and Plan: On presentation tachycardic in the 100s-110s. * Rate improved with IV diltiazem 10 mg x 1. * She has likely been in AFib for the last several weeks given symptomatology, she reported being acutely ill at the end of February with symptom onset at that time * She does have history of cardioversion in September 2020 * Cardiology consult placed * At this time she has opted to proceed with medical therapy for atrial fibrillation control * Initiated on sotalol. Will need to remain hospitalized for 5 doses. * Metoprolol has been discontinued * Continue Eliquis for stroke prophylaxis * Continue to monitor on telemetry * Heart rate continues to be rapid - per cardiology given uncontrolled heart rate will plan for MALLY guided cardioversion with Anesthesiology per her request and high risk due to severe LV dysfunction EF 20 25%. Continue s ystemic anticoagulation without interruption. Procedure scheduled for this afternoon. (2) CHF exacerbation: Code(s): I50.9 - Heart failure, unspecified Status: Acute Assessment and Plan: Likely due to AFib/RVR. * Appreciate cardiology consultation * Continue Lasix 20 mg IV b.i.d. * Continue spironolactone * Continue losartan * Discontinue losartan in favor of Entresto 24/26 mg twice daily with 36 hour washout to begin AM 04/02/21. * Echo shows severe LV dysfunction EF 20-25% (3) Chest tightness: Code(s): R07.89 - Other chest pain Status: Acute Assessment and Plan: Likely related to AFib/RVR * Resolved. No anginal symptoms * Acute coronary syndrome ruled out by serial troponins * Appreciate cardiology consultation (4) Hypokalemia: Code(s): E87.6 - Hypokalemia Status: Acute Assessment and Plan: Resolved. * Likely due to IV diuretics * Magnesium levels are within normal limits * Monitored and replaced as appropriate (5) Obstructive sleep apnea on CPAP: Code(s): G47.33 - Obstructive sleep apnea (adult) (pediatric); Z99.89 - Dependence on other enabling machines and devices Status: Acute Assessment and Plan: CPAP will be provided for the patient to use while hospitalized. (6) Hypertension: Code(s): I10 - Essential (primary) hypertension Status: Acute Assessment and Plan: Blood pressures reviewed and were initially elevated with diastolic BP in the 100s to 110s. * Improved with diuresis. * stable * Continue to monitor blood pressure trends and adjust antihypertensives as needed (7) Elevated LFTs: Code(s): R79.89 - Other specified abnormal findings of blood chemistry Status: Acute Assessment and Plan: Mildly elevated and noted on previous labs. * Hepatitis panel negative * RUQ ultrasound unremarkable * LFTs trending down. Continue to monitor Subjective Date/time seen: 04/01/21 10:00 Interval history: Antonella Lugo is a 51-year-old female with a history of paroxysmal atrial fibrillation on chronic anticoagulation, YAQUELIN on CPAP, systolic CHF, and hypertension who is seen in follow-up for atrial fibrillation with rapid ventricular response and acute on chronic CHF exacerbation. Pt feels good currently and has no complaints. Denies cp, sob, palpitations, dizziness, leg pain/swelling. Does have some anxiety about the cardioversion schedule
--- NOTE | 2021-04-01 13:39 | PM.IMPN ---
Progress Note: A&P Assessment and Plan (1) Atrial fibrillation with rapid ventricular response: Code(s): I48.91 - Unspecified atrial fibrillation Status: Acute Assessment and Plan: On presentation tachycardic in the 100s-110s. Rate improved with IV diltiazem 10 mg x 1. She has likely been in AFib for the last several weeks given symptomatology, she reported being acutely ill at the end of February with symptom onset at that time She does have history of cardioversion in September 2020 Cardiology consult placed At this time she has opted to proceed with medical therapy for atrial fibrillation control Initiated on sotalol. Will need to remain hospitalized for 5 doses. Metoprolol has been discontinued Continue Eliquis for stroke prophylaxis Continue to monitor on telemetry Heart rate continues to be rapid - per cardiology given uncontrolled heart rate will plan for MALLY guided cardioversion with Anesthesiology per her request and high risk due to severe LV dysfunction EF 20 25%. Continue systemic anticoagulation without interruption. Procedure scheduled for this afternoon. (2) CHF exacerbation: Code(s): I50.9 - Heart failure, unspecified Status: Acute Assessment and Plan: Likely due to AFib/RVR. Appreciate cardiology consultation Continue Lasix 20 mg IV b.i.d. Continue spironolactone Continue losartan Discontinue losartan in favor of Entresto 24/26 mg twice daily with 36 hour washout to begin AM 04/02/21. Echo shows severe LV dysfunction EF 20-25% (3) Chest tightness: Code(s): R07.89 - Other chest pain Status: Acute Assessment and Plan: Likely related to AFib/RVR Resolved. No anginal symptoms Acute coronary syndrome ruled out by serial troponins Appreciate cardiology consultation (4) Hypokalemia: Code(s): E87.6 - Hypokalemia Status: Acute Assessment and Plan: Resolved. Likely due to IV diuretics Magnesium levels are within normal limits Monitored and replaced as appropriate (5) Obstructive sleep apnea on CPAP: Code(s): G47.33 - Obstructive sleep apnea (adult) (pediatric); Z99.89 - Dependence on other enabling machines and devices Status: Acute Assessment and Plan: CPAP will be provided for the patient to use while hospitalized. (6) Hypertension: Code(s): I10 - Essential (primary) hypertension Status: Acute Assessment and Plan: Blood pressures reviewed and were initially elevated with diastolic BP in the 100s to 110s. Improved with diuresis. stable Continue to monitor blood pressure trends and adjust antihypertensives as needed (7) Elevated LFTs: Code(s): R79.89 - Other specified abnormal findings of blood chemistry Status: Acute Assessment and Plan: Mildly elevated and noted on previous labs. Hepatitis panel negative RUQ ultrasound unremarkable LFTs trending down. Continue to monitor Subjective Date/time seen: 04/01/21 10:00 Interval history: Antonella Lugo is a 51-year-old female with a history of paroxysmal atrial fibrillation on chronic anticoagulation, YAQUELIN on CPAP, systolic CHF, and hypertension who is seen in follow-up for atrial fibrillation with rapid ventricular response and acute on chronic CHF exacerbation. Pt feels good currently and has no complaints. Denies cp, sob, palpitations, dizziness, leg pain/swelling. Does have some anxiety about the cardioversion scheduled for later today. Review of Systems Review of Systems: General: Denies fevers Eyes: Denies vision changes ENT: Denies nasal congestion or sore throat Respiratory: Denies cough or shortness of breath Cardiovascular: Denies chest pain or lower extremity edema Gastrointestinal: Denies abdominal pain, vomiting, or diarrhea Genitourinary: Denies dysuria Musculoskeletal: Denies back pain Neurological: Denies headache or motor weakness Integumentary: Denies
[2021-04-01] MEDS: FLUTICASONE PROPIONATE 0.05% NA SPR 16 GM BTL (*BKC) 2 SPRAY NASAL (15:08)
[2021-04-01] MEDS: LORATADINE 10 MG TABLET PO (15:08)
[2021-04-01] MEDS: SPIRONOLACTONE 25 MG TABLET PO (15:08)
[2021-04-01] MEDS: FUROSEMIDE INJ 40 MG/4 ML VIAL 20 MG IV PUSH (16:06)
[2021-04-01] MEDS: METOPROLOL TARTRATE 25 MG TABLET PO ×2 (16:51→22:40)
--- NOTE | 2021-04-01 23:57 | PCRCNOTE ---
PT. refused CPAP
[2021-04-02] VITALS (17 sets, daily range): BP systolic 118–127; BP diastolic 80–91; PULSE 61–120; RESP 16–20; TEMP 36.2–36.8; O2SAT 96–98
[2021-04-02] MEDS: METOPROLOL TARTRATE 25 MG TABLET PO (06:12)
[2021-04-02 07:17] LABS: Anion Gap 10 mmol/L (8-16); Blood Urea Nitrogen 16 mg/dL (7-17); Calcium 9.2 mg/dL (8.4-10.2); Carbon Dioxide 26 mmol/L (22-30); Chloride 103 mmol/L (98-107); Estimated CRCL calculation 71 ml/min; Estimated Glomerular Filt Rate > 60; Glucose 101 mg/dL (65-110); Potassium 3.5 mmol/L (3.4-5.0); Sodium 139 mmol/L (137-145)
[2021-04-02] MEDS: LORATADINE 10 MG TABLET PO (08:03)
[2021-04-02] MEDS: SACUBITRIL/VALSARTAN 24-26 MG TABLET 1 TAB PO ×2 (08:03→21:17)
[2021-04-02] MEDS: SPIRONOLACTONE 25 MG TABLET PO (08:04)
[2021-04-02] MEDS: APIXABAN 5 MG TABLET PO ×2 (08:04→21:17)
[2021-04-02] MEDS: FUROSEMIDE INJ 40 MG/4 ML VIAL 20 MG IV PUSH (08:04)
[2021-04-02] MEDS: FLUTICASONE PROPIONATE 0.05% NA SPR 16 GM BTL (*BKC) 2 SPRAY NASAL (08:04)
[2021-04-02] MEDS: SOTALOL HCL 80 MG TABLET PO ×2 (08:05→21:17)
--- NOTE | 2021-04-02 09:25 | WPDANESPN ---
Anes - Prog Note Post-Op Date/Time: 04/02/21 09:25 Cardiovascular status: normal Respiratory status: normal Airway patency: baseline Mental status: baseline Post-Op hydration status: normal Vital Signs: Last Vital Signs Temp 36.3 C L 04/02/21 06:00 Pulse 120 H 04/02/21 08:05 Resp 18 04/02/21 06:00 BP 122/91 H 04/02/21 06:00 Pulse Ox 96 04/02/21 06:00 Pain Score (VAS): 1 I/O: Intake & Output 04/01/21 04/02/21 04/02/21 23:59 07:59 15:59 Intake Total 372 400 Output Total 500 300 Balance -128 100 Laboratory Tests 04/01/21 05:42 04/02/21 06:16 04/02/21 06:16 Sodium 139 Potassium 3.5 Chloride 103 Carbon Dioxide 26 Anion Gap 10 BUN 16 Creatinine 1.10 H Estim Creat Clear Calc 71 Estimated GFR > 60 Glucose 101 Calcium 9.2 Post-procedural complaints: none Patient Feedback: Patient satisfied with anesthetic care.
--- NOTE | 2021-04-02 13:37 | P.PNIM_ITS ---
Progress Note: A&P Assessment and Plan (1) Atrial fibrillation with rapid ventricular response: Code(s): I48.91 - Unspecified atrial fibrillation Status: Acute Assessment and Plan: On presentation tachycardic in the 100s-110s. * Rate improved with IV diltiazem 10 mg x 1. * She has likely been in AFib for the last several weeks given symptomatology, she reported being acutely ill at the end of February with symptom onset at that time * She does have history of cardioversion in September 2020 * Cardiology consult placed * At this time she has opted to proceed with medical therapy for atrial fibrillation control * Initiated on sotalol * Metoprolol has been discontinued * Continue Eliquis for stroke prophylaxis * Heart rate continues to be rapid - per cardiology given uncontrolled heart rate will plan for MALLY guided cardioversion with Anesthesiology per her request and high risk due to severe LV dysfunction EF 20 25%. Continue systemic anticoagulation without interruption. * MALLY performed yesterday which showed loosely organized thrombus within the left atrial appendage so cardioversion was not completed * Dr. Cole added toprol 25 mg daily and will continue to uptitrate as tolerated for HR control. * Continue to monitor on telemetry (2) CHF exacerbation: Code(s): I50.9 - Heart failure, unspecified Status: Acute Assessment and Plan: Likely due to AFib/RVR. * Appreciate cardiology consultation * Continue Lasix 20 mg IV b.i.d. * Continue spironolactone * Continue losartan * Discontinue losartan in favor of Entresto 24/26 mg twice daily with 36 hour washout to begin AM 04/02/21. * Echo shows severe LV dysfunction EF 20-25% (3) Chest tightness: Code(s): R07.89 - Other chest pain Status: Acute Assessment and Plan: Likely related to AFib/RVR * Resolved. No anginal symptoms * Acute coronary syndrome ruled out by serial troponins * Appreciate cardiology consultation (4) Hypokalemia: Code(s): E87.6 - Hypokalemia Status: Acute Assessment and Plan: Resolved. * Likely due to IV diuretics * Magnesium levels are within normal limits * Monitored and replaced as appropriate (5) Obstructive sleep apnea on CPAP: Code(s): G47.33 - Obstructive sleep apnea (adult) (pediatric); Z99.89 - Dependence on other enabling machines and devices Status: Acute Assessment and Plan: CPAP will be provided for the patient to use while hospitalized. (6) Hypertension: Code(s): I10 - Essential (primary) hypertension Status: Acute Assessment and Plan: Blood pressures reviewed and were initially elevated with diastolic BP in the 100s to 110s. * Improved with diuresis. * stable * Continue to monitor blood pressure trends and adjust antihypertensives as ne eded (7) Elevated LFTs: Code(s): R79.89 - Other specified abnormal findings of blood chemistry Status: Acute Assessment and Plan: Mildly elevated and noted on previous labs. * Hepatitis panel negative * RUQ ultrasound unremarkable * LFTs trending down. Continue to monitor Subjective Date/time seen: 04/02/21 13:37 Interval history: Antonella Lugo is a 51-year-old female with a history of paroxysmal atrial fibrillation on chronic anticoagulation, YAQUELIN on CPAP, systolic CHF, and hypertension who is seen in follow-up for atrial fibrillation with rapid ventricular response and acute on chronic CHF exacerbation.
--- NOTE | 2021-04-02 13:37 | PM.IMPN ---
Progress Note: A&P Assessment and Plan (1) Atrial fibrillation with rapid ventricular response: Code(s): I48.91 - Unspecified atrial fibrillation Status: Acute Assessment and Plan: On presentation tachycardic in the 100s-110s. Rate improved with IV diltiazem 10 mg x 1. She has likely been in AFib for the last several weeks given symptomatology, she reported being acutely ill at the end of February with symptom onset at that time She does have history of cardioversion in September 2020 Cardiology consult placed At this time she has opted to proceed with medical therapy for atrial fibrillation control Initiated on sotalol Metoprolol has been discontinued Continue Eliquis for stroke prophylaxis Heart rate continues to be rapid - per cardiology given uncontrolled heart rate will plan for MALLY guided cardioversion with Anesthesiology per her request and high risk due to severe LV dysfunction EF 20 25%. Continue systemic anticoagulation without interruption. MALLY performed yesterday which showed loosely organized thrombus within the left atrial appendage so cardioversion was not completed Dr. Cole added toprol 25 mg daily and will continue to uptitrate as tolerated for HR control. Continue to monitor on telemetry (2) CHF exacerbation: Code(s): I50.9 - Heart failure, unspecified Status: Acute Assessment and Plan: Likely due to AFib/RVR. Appreciate cardiology consultation Continue Lasix 20 mg IV b.i.d. Continue spironolactone Continue losartan Discontinue losartan in favor of Entresto 24/26 mg twice daily with 36 hour washout to begin AM 04/02/21. Echo shows severe LV dysfunction EF 20-25% (3) Chest tightness: Code(s): R07.89 - Other chest pain Status: Acute Assessment and Plan: Likely related to AFib/RVR Resolved. No anginal symptoms Acute coronary syndrome ruled out by serial troponins Appreciate cardiology consultation (4) Hypokalemia: Code(s): E87.6 - Hypokalemia Status: Acute Assessment and Plan: Resolved. Likely due to IV diuretics Magnesium levels are within normal limits Monitored and replaced as appropriate (5) Obstructive sleep apnea on CPAP: Code(s): G47.33 - Obstructive sleep apnea (adult) (pediatric); Z99.89 - Dependence on other enabling machines and devices Status: Acute Assessment and Plan: CPAP will be provided for the patient to use while hospitalized. (6) Hypertension: Code(s): I10 - Essential (primary) hypertension Status: Acute Assessment and Plan: Blood pressures reviewed and were initially elevated with diastolic BP in the 100s to 110s. Improved with diuresis. stable Continue to monitor blood pressure trends and adjust antihypertensives as needed (7) Elevated LFTs: Code(s): R79.89 - Other specified abnormal findings of blood chemistry Status: Acute Assessment and Plan: Mildly elevated and noted on previous labs. Hepatitis panel negative RUQ ultrasound unremarkable LFTs trending down. Continue to monitor Subjective Date/time seen: 04/02/21 13:37 Interval history: Antonella Lugo is a 51-year-old female with a history of paroxysmal atrial fibrillation on chronic anticoagulation, YAQUELIN on CPAP, systolic CHF, and hypertension who is seen in follow-up for atrial fibrillation with rapid ventricular response and acute on chronic CHF exacerbation. Pt feels good currently and has no complaints. Denies cp, sob, palpitations, dizziness, leg pain/swelling. Review of Systems Review of Systems: General: Denies fevers Eyes: Denies vision changes ENT: Denies nasal congestion or sore throat Respiratory: Denies cough or shortness of breath Cardiovascular: Denies chest pain or lower extremity edema Gastrointestinal: Denies abdominal pain, vomiting, or diarrhea Genitourinary: Denies dysuria Musculoskeletal: Denies ba
[2021-04-02] MEDS: METOPROLOL TARTRATE 50 MG TAB PO ×2 (13:56→22:11)
--- NOTE | 2021-04-02 15:13 | PM.PNCARD ---
Progress Note: A&P Assessment and Plan (1) Atrial fibrillation with rapid ventricular response: Code(s): I48.91 - Unspecified atrial fibrillation Status: Acute Assessment and Plan: Heart rate remains unacceptably rapid particularly given severe LV dysfunction EF 20-25%. She is not currently aware of her atrial fibrillation. She gradually became worse with decompensated heart failure found to be in AFib with RVR presentation. -unfortunately, given presence of loosely organized left atrial appendage thrombus unable to proceed with electrical cardioversion with MALLY. As such, must focus on heart rate control which is suboptimal as discussed. Metoprolol tartrate 25 mg p.o. q.8 our added with some improvement in heart rate control but still not ideal. Increase to 50 mg p.o. q.8 hours and if reasonably controlled and tolerated transition to Toprol XL 75 mg daily beginning tomorrow. If HR better controlled and LifeVest fitted is pt agrees she may be stable for discharge home tomorrow. (2) Thrombus of left atrial appendage: Code(s): I51.3 - Intracardiac thrombosis, not elsewhere classified Status: Acute Assessment and Plan: Unable to cardiovert secondary loosely organized left atrial appendage thrombus. Continue systemic anticoagulation without interruption. Consider outpatient re-evaluation in 4 weeks on MALLY if patient remains in atrial fibrillation. She will need to establish with a furniture finisher as soon as possible upon discharge as counseled. Patient verbalized understanding. I stressed the importance of compliance with all her medications particularly her anticoagulation and risk for stroke as a result. She understands this risk. (3) Acute on chronic HFrEF (heart failure with reduced ejection fraction): Code(s): I50.23 - Acute on chronic systolic (congestive) heart failure Status: Acute Assessment and Plan: As above, likely combination of LV dysfunction and uncontrolled atrial fibrillation. Continue Entresto 24/26 mg b.i.d.. Tolerating well thus far. Discussed at length life vest given severe LV systolic dysfunction and unfortunately with persistence of atrial fibrillation reducing likelihood of significant improvement in the near term. Discussed risk for ventricular tachycardia and or ventricular fibrillation otherwise known as sudden cardiac due to severe LV dysfunction EF 20-25%. Offered this therapy prior to candidacy for implantable ICD. Patient states she will consider this recommendation and discussed with family and relay her answer whether she agrees or not. Advised she will need to be fitted with LifeVest if she agrees prior to discharge. Explained benefits, risks and limitations with such as therapy. All questions answered to her satisfaction. (4) Nonischemic cardiomyopathy: Code(s): I42.8 - Other cardiomyopathies Status: Acute Assessment and Plan: -EF 20-25% worse than previously noted. while it is unclear seems unlikely to me that her LV function improved significantly in the interval presumably maintaining sinus rhythm until she became more acutely ill in of February date in with symptoms suggestive of recurrence of AFib. She states her PCP did not noted on exam and she had no symptoms suggestive of recurrent AFib. However, we also discussed likely need for left heart catheterization for delineation of her coronary anatomy although I suspect secondary to nonischemic etiology underlying CAD cannot be entirely excluded. However, given need to discontinue anticoagulation and interruption particularly given ongoing AFib with RVR this must be a secondary plan as her AFib must be primarily addressed as this at least will contribute to risk for worsening LV dysfunction and heart failure if left uncontrolled. She verbalized understanding and agreed with plan of care. Therefore, focus will be on management of her atrial fibrillation with follow-up as an
[2021-04-03] VITALS (13 sets, daily range): BP systolic 92–115; BP diastolic 67–92; PULSE 85–115; RESP 16–20; TEMP 36.2–36.5; O2SAT 95–100
[2021-04-03 05:59] LABS: Hematocrit 44.3 % (37.0-47.0); Hemoglobin 14.4 g/dL (12.0-15.0); Mean Corpuscular HGB Conc 32.5 g/dl (32-36); Mean Corpuscular Hemoglobin 30.2 pg (26-34); Mean Corpuscular Volume 92.9 fl (80-100); Mean Platelet Volume 9.2 fl (7.4-10.4); Platelet Count Result 287 k/mm3 (150-375); Red Blood Count 4.77 M/mm3 (4.2-5.4); Red Cell Distribution Width 14.5 % (11.5-14.5); White Blood Count 7.1 K/mm3 (4.5-10.0)
[2021-04-03 06:11] LABS: Anion Gap 5 mmol/L (8-16); Blood Urea Nitrogen 15 mg/dL (7-17); Calcium 8.8 mg/dL (8.4-10.2); Carbon Dioxide 30 mmol/L (22-30); Chloride 103 mmol/L (98-107); Estimated CRCL calculation 69 ml/min; Estimated Glomerular Filt Rate > 60; Glucose 104 mg/dL (65-110); Potassium 3.3 mmol/L (3.4-5.0); Sodium 138 mmol/L (137-145)
--- NOTE | 2021-04-03 08:45 | PM.PNCARD ---
Progress Note: A&P Assessment and Plan (1) Atrial fibrillation with rapid ventricular response: Code(s): I48.91 - Unspecified atrial fibrillation <Katy BestArabella KEVIN Antonio - Last Filed: 04/03/21 11:48> Status: Acute <Katy A. MariselaKEVIN irving - Last Filed: 04/03/21 11:48> Assessment and Plan: Heart rate remains unacceptably rapid particularly given severe LV dysfunction EF 20-25%. She is not currently aware of her atrial fibrillation. She gradually became worse with decompensated heart failure found to be in AFib with RVR presentation. -unfortunately, given presence of loosely organized left atrial appendage thrombus unable to proceed with electrical cardioversion with MALLY. Rate control strategy being pursued. Her rate is reasonably controlled at times but she does still have some periods of tachycardia with heart rate in the 130s. She remains asymptomatic with this. We will increase her metoprolol XL to 100 mg daily. <KEVIN Oro - Last Filed: 04/03/21 11:48> (2) Thrombus of left atrial appendage: Code(s): I51.3 - Intracardiac thrombosis, not elsewhere classified <KEVIN Oro - Last Filed: 04/03/21 11:48> Status: Acute <KEVIN Oro - Last Filed: 04/03/21 11:48> Assessment and Plan: Unable to cardiovert secondary loosely organized left atrial appendage thrombus. Continue systemic anticoagulation without interruption. Consider outpatient re-evaluation in 4 weeks on MALLY if patient remains in atrial fibrillation. Unable to have outpatient cardiology follow-up with our office because of insurance barriers. I called her primary care provider and updated her on events of this hospitalization and the patient's need for outpatient Cardiology follow-up. Primary care office is to assist patient in finding a mill turner to she can follow with as an outpatient. I talked to the patient regarding the importance of following up with this because of her new medications in particular sotalol and anticoagulation. She will need periodically EKGs as an outpatient for QTC monitoring. Patient verbalized understanding of everything we discussed. <KEVIN Oro - Last Filed: 04/03/21 11:48> (3) Acute on chronic HFrEF (heart failure with reduced ejection fraction): Code(s): I50.23 - Acute on chronic systolic (congestive) heart failure <KEVIN Oro - Last Filed: 04/03/21 11:48> Status: Acute <Katy AnotnioKEVIN - Last Filed: 04/03/21 11:48> Assessment and Plan: As above, likely combination of LV dysfunction and uncontrolled atrial fibrillation. Not exhibiting any signs or symptoms of decompensated heart failure at this point. Continue medical therapy with Entresto, spironolactone, beta-kelsie, furosemide. As above, she does need to establish care with a mill turner to follow and optimize her GDMT for HFrEF. <KEVIN Oro - Last Filed: 04/03/21 11:48> (4) Nonischemic cardiomyopathy: Code(s): I42.8 - Other cardiomyopathies <KEVIN Oro - Last Filed: 04/03/21 11:48> Status: Acute <Katy A. MariselaKEVIN irving - Last Filed: 04/03/21 11:48> Assessment and Plan: -EF 20-25% worse than previously noted. At some point she should undergo an ischemic evaluation as an outpatient to rule out ischemic etiology of her cardiomyopathy. This will be at the discretion of her mill turner. For now, continue medical therapy as above. <KEVIN Oro - Last Filed: 04/03/21 11:48> (5) Hypertension: Code(s): I10 - Essential (primary) hypertension <KEVIN Oro - Last Filed: 04/03/21 11:48> Status: Acute <KEVIN Oro - Last Filed: 04/03/21 11:48> Assessment and Plan: Stable, tolerating Entresto. <KEVIN Oro - Last Filed: 04/03/21 11:48> (6) YAQUELIN (obstructive sleep apnea): Code(s): G47.33
[2021-04-03] MEDS: FLUTICASONE PROPIONATE 0.05% NA SPR 16 GM BTL (*BKC) 2 SPRAY NASAL (09:23)
[2021-04-03] MEDS: POTASSIUM CHLORIDE 20 MEQ TABLET 40 MEQ PO (09:23)
[2021-04-03] MEDS: SOTALOL HCL 80 MG TABLET PO ×2 (09:24→21:05)
[2021-04-03] MEDS: SPIRONOLACTONE 25 MG TABLET PO (09:24)
[2021-04-03] MEDS: LORATADINE 10 MG TABLET PO (09:24)
[2021-04-03] MEDS: APIXABAN 5 MG TABLET PO ×2 (09:24→21:05)
[2021-04-03] MEDS: METOPROLOL SUCCINATE EXT REL 25 MG, METOPROLOL SUCCINATE EXT REL 50 MG 75 MG PO (09:24)
[2021-04-03] MEDS: FUROSEMIDE 40 MG TABLET PO (09:25)
[2021-04-03] MEDS: SACUBITRIL/VALSARTAN 24-26 MG TABLET 1 TAB PO ×2 (09:25→21:05)
--- NOTE | 2021-04-03 09:38 | P.PNIM_ITS ---
Progress Note: A&P Assessment and Plan (1) Atrial fibrillation with rapid ventricular response: Code(s): I48.91 - Unspecified atrial fibrillation Status: Acute Assessment and Plan: On presentation tachycardic in the 100s-110s. * Rate improved with IV diltiazem 10 mg x 1. * She has likely been in AFib for the last several weeks given symptomatology, she reported being acutely ill at the end of February with symptom onset at that time * She does have history of cardioversion in September 2020 * Cardiology consult placed * At this time she has opted to proceed with medical therapy for atrial fibrillation control * Initiated on sotalol * Metoprolol has been discontinued * Continue Eliquis for stroke prophylaxis * Heart rate continues to be rapid - per cardiology given uncontrolled heart rate will plan for MALLY guided cardioversion with Anesthesiology per her request and high risk due to severe LV dysfunction EF 20 25%. Continue systemic anticoagulation without interruption. * MALLY yesterday which showed loosely organized thrombus within the left atrial appendage so cardioversion was not completed * Dr. Cole added toprol 25 mg daily and will continue to uptitrate as tolerated for HR control. * Still elevated in the 130s on telemetry despite additional toprol, awaiting cardiology recommendations * Continue to monitor on telemetry (2) CHF exacerbation: Code(s): I50.9 - Heart failure, unspecified Status: Acute Assessment and Plan: Likely due to AFib/RVR. * Appreciate cardiology consultation * Continue Lasix 20 mg IV b.i.d. * Continue spironolactone * Continue losartan * Discontinue losartan in favor of Entresto 24/26 mg twice daily with 36 hour wa shout to begin AM 04/02/21. * Echo shows severe LV dysfunction EF 20-25% (3) Chest tightness: Code(s): R07.89 - Other chest pain Status: Acute Assessment and Plan: Likely related to AFib/RVR * Resolved. No anginal symptoms * Acute coronary syndrome ruled out by serial troponins * Appreciate cardiology consultation (4) Hypokalemia: Code(s): E87.6 - Hypokalemia Status: Acute Assessment and Plan: Resolved. * Likely due to IV diuretics * Magnesium levels are within normal limits * Monitored and replaced as appropriate (5) Obstructive sleep apnea on CPAP: Code(s): G47.33 - Obstructive sleep apnea (adult) (pediatric); Z99.89 - Dependence on other enabling machines and devices Status: Acute Assessment and Plan: CPAP will be provided for the patient to use while hospitalized. (6) Hypertension: Code(s): I10 - Essential (primary) hypertension Status: Acute Assessment and Plan: Blood pressures reviewed and were initially elevated with diastolic BP in the 100s to 110s. * Improved with diuresis. * stable * Continue to monitor blood pressure trends and adjust antihypertensives as needed (7) Elevated LFTs: Code(s): R79.89 - Other specified abnormal findings of blood chemistry Status: Acute Assessment and Plan: Mildly elevated and noted on previous labs. * Hepatitis panel negative * RUQ ultrasound unremarkable * LFTs trending down. Continue to monitor Subjective Date/time seen: 04/03/21 09:38 Interval history: Antonella Lugo is a 51-year-old female with a history of paroxysmal atrial fibrillation on chronic anticoagulation, YAQUELIN on CPAP, systolic CHF, and hypertension who is seen in follow-up fo
--- NOTE | 2021-04-03 09:38 | PM.IMPN ---
Progress Note: A&P Assessment and Plan (1) Atrial fibrillation with rapid ventricular response: Code(s): I48.91 - Unspecified atrial fibrillation Status: Acute Assessment and Plan: On presentation tachycardic in the 100s-110s. Rate improved with IV diltiazem 10 mg x 1. She has likely been in AFib for the last several weeks given symptomatology, she reported being acutely ill at the end of February with symptom onset at that time She does have history of cardioversion in September 2020 Cardiology consult placed At this time she has opted to proceed with medical therapy for atrial fibrillation control Initiated on sotalol Metoprolol has been discontinued Continue Eliquis for stroke prophylaxis Heart rate continues to be rapid - per cardiology given uncontrolled heart rate will plan for MALLY guided cardioversion with Anesthesiology per her request and high risk due to severe LV dysfunction EF 20 25%. Continue systemic anticoagulation without interruption. MALLY yesterday which showed loosely organized thrombus within the left atrial appendage so cardioversion was not completed Dr. Cole added toprol 25 mg daily and will continue to uptitrate as tolerated for HR control. Still elevated in the 130s on telemetry despite additional toprol, awaiting cardiology recommendations Continue to monitor on telemetry (2) CHF exacerbation: Code(s): I50.9 - Heart failure, unspecified Status: Acute Assessment and Plan: Likely due to AFib/RVR. Appreciate cardiology consultation Continue Lasix 20 mg IV b.i.d. Continue spironolactone Continue losartan Discontinue losartan in favor of Entresto 24/26 mg twice daily with 36 hour washout to begin AM 04/02/21. Echo shows severe LV dysfunction EF 20-25% (3) Chest tightness: Code(s): R07.89 - Other chest pain Status: Acute Assessment and Plan: Likely related to AFib/RVR Resolved. No anginal symptoms Acute coronary syndrome ruled out by serial troponins Appreciate cardiology consultation (4) Hypokalemia: Code(s): E87.6 - Hypokalemia Status: Acute Assessment and Plan: Resolved. Likely due to IV diuretics Magnesium levels are within normal limits Monitored and replaced as appropriate (5) Obstructive sleep apnea on CPAP: Code(s): G47.33 - Obstructive sleep apnea (adult) (pediatric); Z99.89 - Dependence on other enabling machines and devices Status: Acute Assessment and Plan: CPAP will be provided for the patient to use while hospitalized. (6) Hypertension: Code(s): I10 - Essential (primary) hypertension Status: Acute Assessment and Plan: Blood pressures reviewed and were initially elevated with diastolic BP in the 100s to 110s. Improved with diuresis. stable Continue to monitor blood pressure trends and adjust antihypertensives as needed (7) Elevated LFTs: Code(s): R79.89 - Other specified abnormal findings of blood chemistry Status: Acute Assessment and Plan: Mildly elevated and noted on previous labs. Hepatitis panel negative RUQ ultrasound unremarkable LFTs trending down. Continue to monitor Subjective Date/time seen: 04/03/21 09:38 Interval history: Antonella Lugo is a 51-year-old female with a history of paroxysmal atrial fibrillation on chronic anticoagulation, YAQUELIN on CPAP, systolic CHF, and hypertension who is seen in follow-up for atrial fibrillation with rapid ventricular response and acute on chronic CHF exacerbation. Pt feels good currently and has no complaints. Denies cp, sob, palpitations, dizziness, leg pain/swelling. HR remains elevated in the 130's on telemetry. Review of Systems Review of Systems: All systems reviewed & are unremarkable except as noted in HPI and below Exam Narrative: Ms. Lugo is a well-nourished, well-appearing 51-year-old female who is sitting up in a chair
[2021-04-04] VITALS (13 sets, daily range): BP systolic 105–115; BP diastolic 81–88; PULSE 68–120; RESP 18–20; TEMP 36.1–36.3; O2SAT 98–99
[2021-04-04] MEDS: FUROSEMIDE 40 MG TABLET PO (08:10)
[2021-04-04] MEDS: METOPROLOL SUCCINATE EXT REL 25 MG, METOPROLOL SUCCINATE EXT REL 50 MG 75 MG PO (08:10)
[2021-04-04] MEDS: APIXABAN 5 MG TABLET PO ×2 (08:10→20:39)
[2021-04-04] MEDS: LORATADINE 10 MG TABLET PO (08:10)
[2021-04-04] MEDS: SOTALOL HCL 80 MG TABLET PO ×2 (08:11→20:36)
[2021-04-04] MEDS: SPIRONOLACTONE 25 MG TABLET PO (08:11)
[2021-04-04] MEDS: SACUBITRIL/VALSARTAN 24-26 MG TABLET 1 TAB PO ×2 (08:11→20:38)
[2021-04-04] MEDS: METOPROLOL SUCCINATE EXT REL 25 MG TABCR PO ×2 (10:12→15:25)
--- NOTE | 2021-04-04 13:34 | P.PNIM_ITS ---
Progress Note: A&P Assessment and Plan (1) Atrial fibrillation with rapid ventricular response: Code(s): I48.91 - Unspecified atrial fibrillation Status: Acute Assessment and Plan: On presentation tachycardic in the 100s-110s. * Rate improved with IV diltiazem 10 mg x 1. * She has likely been in AFib for the last several weeks given symptomatology, she reported being acutely ill at the end of February with symptom onset at that time * She does have history of cardioversion in September 2020 * Cardiology consult placed * At this time she has opted to proceed with medical therapy for atrial fibrillation control * Initiated on sotalol * Metoprolol has been discontinued * Continue Eliquis for stroke prophylaxis * Heart rate continues to be rapid - per cardiology given uncontrolled heart rate will plan for MALLY guided cardioversion with Anesthesiology per her request and high risk due to severe LV dysfunction EF 20 25%. Continue systemic anticoagulation without interruption. * MALLY yesterday which showed loosely organized thrombus within the left atrial appendage so cardioversion was not completed * Dr. Cole added toprol 25 mg daily and will continue to uptitrate as tolerated for HR control. * Still elevated in the 120s on telemetry despite additional toprol * Spoke to Dr. Cole, he now has her up to 125 mg Metoprolol. Would like to observe her at least overnight with this increase. * Continue to monitor on telemetry (2) CHF exacerbation: Code(s): I50.9 - Heart failure, unspecified Status: Acute Assessment and Plan: Likely due to AFib/RVR. * Appreciate cardiology consultation * Continue Lasix 20 mg IV b.i.d. * Continue spironolactone * Continue losartan * Discontinue losartan in favor of Entresto 24/26 mg twice daily with 36 hour washout to begin AM 04/02/21. * Echo shows severe LV dysfunction EF 20-25% (3) Chest tightness: Code(s): R07.89 - Other chest pain Status: Acute Assessment and Plan: Likely related to AFib/RVR * Resolved. No anginal symptoms * Acute coronary syndrome ruled out by serial troponins * Appreciate cardiology consultation (4) Hypokalemia: Code(s): E87.6 - Hypokalemia Status: Acute Assessment and Plan: Resolved. * Likely due to IV diuretics * Magnesium levels are within normal limits * Monitored and replaced as appropriate (5) Obstructive sleep apnea on CPAP: Code(s): G47.33 - Obstructive sleep apnea (adult) (pediatric); Z99.89 - Dependence on other enabling machines and devices Status: Acute Assessment and Plan: CPAP will be provided for the patient to use while hospitalized. (6) Hypertension: Code(s): I10 - Essential (primary) hypertension Status: Acute Assessment and Plan: Blood pressures reviewed and were initially elevated with diastolic BP in the 100s to 110s. * Improved with diuresis. * stable * Continue to monitor blood pressure trends and adjust antihypertensives as needed (7) Elevated LFTs: Code(s): R79.89 - Other specified abnormal findings of blood chemistry Status: Acute Assessment and Plan: Mildly elevated and noted on previous labs. * Hepatitis panel negative * RUQ ultrasound unremarkable * LFTs trending down. Continue to monitor Subjective Date/time seen: 04/04/21 13:34 Interval history: Antonella Lugo is a 51-year-old female with a history of paroxysmal atrial fibrillation on c
--- NOTE | 2021-04-04 13:34 | PM.PNCARD ---
Progress Note: A&P Assessment and Plan (1) Atrial fibrillation with rapid ventricular response: Code(s): I48.91 - Unspecified atrial fibrillation Status: Acute Assessment and Plan: Heart rate remains unacceptably rapid particularly given severe LV dysfunction EF 20-25%. She is not currently aware of her atrial fibrillation. She gradually became worse with decompensated heart failure found to be in AFib with RVR presentation. -unfortunately, given presence of loosely organized left atrial appendage thrombus unable to proceed with electrical cardioversion with MALLY. Rate control strategy being pursued. Her rate Remains elevated up to the 130s but is asymptomatic. - Increase Metoprolol XL to 125mg daily. Will give additional total 50mg to equal 125 mg total. She received 75 mg Toprol XL initially this morning. -Counseled this is not ideal however have to be cautious with blood pressure, tolerance and concomitant sotalol yet her heart rate remains suboptimally controlled. This is a very difficult situation and she understands the risks as previously discussed. If heart rate better controlled may considered discharge but anticipate she will not be stable today unless heart rate better controlled tomorrow morning. Patient is in agreement. -Need to double check if her insurance is accepted by our practice with care coordination S patient found something where she thinks she might be able to CS yet her insurance did not change from last year and apparently was not able to see us per her account. (2) Thrombus of left atrial appendage: Code(s): I51.3 - Intracardiac thrombosis, not elsewhere classified Status: Acute Assessment and Plan: Unable to cardiovert secondary loosely organized left atrial appendage thrombus. Continue systemic anticoagulation without interruption. Consider outpatient re-evaluation in 4 weeks on MALLY if patient remains in atrial fibrillation. Previously we over told she is Unable to have outpatient cardiology follow-up with our office because of insurance barriers. Her primary care provider was called and updated her on events of this hospitalization and the patient's need for outpatient Cardiology follow-up. Primary care office is to assist patient in finding a mems integration engineer to she can follow with as an outpatient. I talked to the patient regarding the importance of following up with this because of her new medications in particular sotalol and anticoagulation. She will need periodically EKGs as an outpatient for QTC monitoring. (3) Acute on chronic HFrEF (heart failure with reduced ejection fraction): Code(s): I50.23 - Acute on chronic systolic (congestive) heart failure Status: Acute Assessment and Plan: As above, likely combination of LV dysfunction and uncontrolled atrial fibrillation. Not exhibiting any signs or symptoms of decompensated heart failure at this point. Continue medical therapy with Entresto, spironolactone, beta-kelsie, furosemide. As above, she does need to establish care with a mems integration engineer to follow and optimize her GDMT for HFrEF. Compensated heart failure with reduced ejection fraction. Continue Entresto, spironolactone, Lasix 40 mg daily. (4) Nonischemic cardiomyopathy: Code(s): I42.8 - Other cardiomyopathies Status: Acute Assessment and Plan: -EF 20-25% worse than previously noted. At some point she should undergo an ischemic evaluation as an outpatient to rule out ischemic etiology of her cardiomyopathy. This will be at the discretion of her mems integration engineer. For now, continue medical therapy as above. (5) Hypertension: Code(s): I10 - Essential (primary) hypertension Status: Acute Assessment and Plan: Stable, tolerating current medical therapy. (6) YAQUELIN (obstructive sleep apnea): Code(s): G47.33 - Obstructive sleep apnea (adult) (pediatric) Status: Acute Assessment a
--- NOTE | 2021-04-04 13:34 | PM.IMPN ---
Progress Note: A&P Assessment and Plan (1) Atrial fibrillation with rapid ventricular response: Code(s): I48.91 - Unspecified atrial fibrillation Status: Acute Assessment and Plan: On presentation tachycardic in the 100s-110s. Rate improved with IV diltiazem 10 mg x 1. She has likely been in AFib for the last several weeks given symptomatology, she reported being acutely ill at the end of February with symptom onset at that time She does have history of cardioversion in September 2020 Cardiology consult placed At this time she has opted to proceed with medical therapy for atrial fibrillation control Initiated on sotalol Metoprolol has been discontinued Continue Eliquis for stroke prophylaxis Heart rate continues to be rapid - per cardiology given uncontrolled heart rate will plan for MALLY guided cardioversion with Anesthesiology per her request and high risk due to severe LV dysfunction EF 20 25%. Continue systemic anticoagulation without interruption. MALLY yesterday which showed loosely organized thrombus within the left atrial appendage so cardioversion was not completed Dr. Cole added toprol 25 mg daily and will continue to uptitrate as tolerated for HR control. Still elevated in the 120s on telemetry despite additional toprol Spoke to Dr. Cole, he now has her up to 125 mg Metoprolol. Would like to observe her at least overnight with this increase. Continue to monitor on telemetry (2) CHF exacerbation: Code(s): I50.9 - Heart failure, unspecified Status: Acute Assessment and Plan: Likely due to AFib/RVR. Appreciate cardiology consultation Continue Lasix 20 mg IV b.i.d. Continue spironolactone Continue losartan Discontinue losartan in favor of Entresto 24/26 mg twice daily with 36 hour washout to begin AM 04/02/21. Echo shows severe LV dysfunction EF 20-25% (3) Chest tightness: Code(s): R07.89 - Other chest pain Status: Acute Assessment and Plan: Likely related to AFib/RVR Resolved. No anginal symptoms Acute coronary syndrome ruled out by serial troponins Appreciate cardiology consultation (4) Hypokalemia: Code(s): E87.6 - Hypokalemia Status: Acute Assessment and Plan: Resolved. Likely due to IV diuretics Magnesium levels are within normal limits Monitored and replaced as appropriate (5) Obstructive sleep apnea on CPAP: Code(s): G47.33 - Obstructive sleep apnea (adult) (pediatric); Z99.89 - Dependence on other enabling machines and devices Status: Acute Assessment and Plan: CPAP will be provided for the patient to use while hospitalized. (6) Hypertension: Code(s): I10 - Essential (primary) hypertension Status: Acute Assessment and Plan: Blood pressures reviewed and were initially elevated with diastolic BP in the 100s to 110s. Improved with diuresis. stable Continue to monitor blood pressure trends and adjust antihypertensives as needed (7) Elevated LFTs: Code(s): R79.89 - Other specified abnormal findings of blood chemistry Status: Acute Assessment and Plan: Mildly elevated and noted on previous labs. Hepatitis panel negative RUQ ultrasound unremarkable LFTs trending down. Continue to monitor Subjective Date/time seen: 04/04/21 13:34 Interval history: Antonella Lugo is a 51-year-old female with a history of paroxysmal atrial fibrillation on chronic anticoagulation, YAQUELIN on CPAP, systolic CHF, and hypertension who is seen in follow-up for atrial fibrillation with rapid ventricular response and acute on chronic CHF exacerbation. Pt feels good currently and has no complaints. Denies cp, sob, palpitations, dizziness, leg pain/swelling. HR remains elevated in the 110's, 120's on telemetry. Review of Systems Review of Systems: All systems reviewed & are unremarkable except as noted in HPI and below Exam Narrative:
[2021-04-05] VITALS (14 sets, daily range): BP systolic 100–109; BP diastolic 75–85; PULSE 85–117; RESP 14–18; TEMP 36.3–36.5; O2SAT 97–100
[2021-04-05 06:00] LABS: Hematocrit 47.9 % (37.0-47.0); Hemoglobin 15.1 g/dL (12.0-15.0); Mean Corpuscular HGB Conc 31.5 g/dl (32-36); Mean Corpuscular Hemoglobin 30.2 pg (26-34); Mean Corpuscular Volume 95.8 fl (80-100); Mean Platelet Volume 9.3 fl (7.4-10.4); Platelet Count Result 309 k/mm3 (150-375); Red Cell Distribution Width 14.5 % (11.5-14.5); White Blood Count 7.2 K/mm3 (4.5-10.0)
[2021-04-05 06:21] LABS: Anion Gap 2 mmol/L (8-16); Blood Urea Nitrogen 17 mg/dL (7-17); Calcium 9.1 mg/dL (8.4-10.2); Carbon Dioxide 32 mmol/L (22-30); Chloride 105 mmol/L (98-107); Estimated CRCL calculation 69 ml/min; Estimated Glomerular Filt Rate > 60; Glucose 106 mg/dL (65-110); Potassium 4.2 mmol/L (3.4-5.0); Sodium 139 mmol/L (137-145)
[2021-04-05] MEDS: FUROSEMIDE 40 MG TABLET PO (08:01)
[2021-04-05] MEDS: LORATADINE 10 MG TABLET PO (08:01)
[2021-04-05] MEDS: APIXABAN 5 MG TABLET PO ×2 (08:01→20:47)
[2021-04-05] MEDS: FLUTICASONE PROPIONATE 0.05% NA SPR 16 GM BTL (*BKC) 2 SPRAY NASAL (08:02)
[2021-04-05] MEDS: SACUBITRIL/VALSARTAN 24-26 MG TABLET 1 TAB PO ×2 (08:02→20:47)
[2021-04-05] MEDS: SPIRONOLACTONE 25 MG TABLET PO (08:02)
[2021-04-05] MEDS: SOTALOL HCL 80 MG TABLET PO ×2 (08:02→20:47)
--- NOTE | 2021-04-05 08:22 | P.PNIM_ITS ---
Progress Note: A&P Assessment and Plan (1) Atrial fibrillation with rapid ventricular response: Code(s): I48.91 - Unspecified atrial fibrillation Status: Acute Assessment and Plan: On presentation tachycardic in the 100s-110s. * Rate improved with IV diltiazem 10 mg x 1. * She has likely been in AFib for the last several weeks given symptomatology, she reported being acutely ill at the end of February with symptom onset at that time * She does have history of cardioversion in September 2020 * Cardiology consult placed * At this time she has opted to proceed with medical therapy for atrial fibrillation control * Initiated on sotalol * Metoprolol has been discontinued * Continue Eliquis for stroke prophylaxis * Heart rate continues to be rapid - per cardiology given uncontrolled heart rate will plan for MALLY guided cardioversion with Anesthesiology per her request and high risk due to severe LV dysfunction EF 20 25%. Continue systemic anticoagulation without interruption. * MALLY yesterday which showed loosely organized thrombus within the left atrial appendage so cardioversion was not completed * Dr. Cole added toprol 25 mg daily and will continue to uptitrate as tolerated for HR control. * Still elevated in the 120s on telemetry despite additional toprol * Spoke to Dr. Cole, he now has her up to 125 mg Metoprolol. * Still with suboptimal HR control. Further adjustments per cardiology. Still working on figuring out follow up with her insurance issues as this will be imperative for her to have close follow up. * Continue to monitor on telemetry (2) CHF exacerbation: Code(s): I50.9 - Heart failure, unspecified Status: Acute Assessment and Plan: Likely due to AFib/RVR. * Appreciate cardiology consultation * Continue Lasix 20 mg IV b.i.d. * Continue spironolactone * Continue losartan * Discontinue losartan in favor of Entresto 24/26 mg twice daily with 36 hour washout to begin AM 04/02/21. * Echo shows severe LV dysfunction EF 20-25% (3) Chest tightness: Code(s): R07.89 - Other chest pain Status: Acute Assessment and Plan: Likely related to AFib/RVR * Resolved. No anginal symptoms * Acute coronary syndrome ruled out by serial troponins * Appreciate cardiology consultation (4) Hypokalemia: Code(s): E87.6 - Hypokalemia Status: Acute Assessment and Plan: Resolved. * Likely due to IV diuretics * Magnesium levels are within normal limits * Monitored and replaced as appropriate (5) Obstructive sleep apnea on CPAP: Code(s): G47.33 - Obstructive sleep apnea (adult) (pediatric); Z99.89 - Dependence on other enabling machines and devices Status: Acute Assessment and Plan: CPAP will be provided for the patient to use while hospitalized. (6) Hypertension: Code(s): I10 - Essential (primary) hypertension Status: Acute Assessment and Plan: Blood pressures reviewed and were initially elevated with diastolic BP in the 100s to 110s. * Improved with diuresis. * stable * Continue to monitor blood pressure trends and adjust antihypertensives as needed (7) Elevated LFTs: Code(s): R79.89 - Other specified abnormal findings of blood chemistry Status: Acute Assessment and Plan: Mildly elevated and noted on previous labs. * Hepatitis panel negative * RUQ ultrasound unremarkable * LFTs trending down. Continue to monitor Subjective Date/time see
--- NOTE | 2021-04-05 08:22 | PM.IMPN ---
Progress Note: A&P Assessment and Plan (1) Atrial fibrillation with rapid ventricular response: Code(s): I48.91 - Unspecified atrial fibrillation Status: Acute Assessment and Plan: On presentation tachycardic in the 100s-110s. Rate improved with IV diltiazem 10 mg x 1. She has likely been in AFib for the last several weeks given symptomatology, she reported being acutely ill at the end of February with symptom onset at that time She does have history of cardioversion in September 2020 Cardiology consult placed At this time she has opted to proceed with medical therapy for atrial fibrillation control Initiated on sotalol Metoprolol has been discontinued Continue Eliquis for stroke prophylaxis Heart rate continues to be rapid - per cardiology given uncontrolled heart rate will plan for MALLY guided cardioversion with Anesthesiology per her request and high risk due to severe LV dysfunction EF 20 25%. Continue systemic anticoagulation without interruption. MALLY yesterday which showed loosely organized thrombus within the left atrial appendage so cardioversion was not completed Dr. Cole added toprol 25 mg daily and will continue to uptitrate as tolerated for HR control. Still elevated in the 120s on telemetry despite additional toprol Spoke to Dr. Cole, he now has her up to 125 mg Metoprolol. Still with suboptimal HR control. Further adjustments per cardiology. Still working on figuring out follow up with her insurance issues as this will be imperative for her to have close follow up. Continue to monitor on telemetry (2) CHF exacerbation: Code(s): I50.9 - Heart failure, unspecified Status: Acute Assessment and Plan: Likely due to AFib/RVR. Appreciate cardiology consultation Continue Lasix 20 mg IV b.i.d. Continue spironolactone Continue losartan Discontinue losartan in favor of Entresto 24/26 mg twice daily with 36 hour washout to begin AM 04/02/21. Echo shows severe LV dysfunction EF 20-25% (3) Chest tightness: Code(s): R07.89 - Other chest pain Status: Acute Assessment and Plan: Likely related to AFib/RVR Resolved. No anginal symptoms Acute coronary syndrome ruled out by serial troponins Appreciate cardiology consultation (4) Hypokalemia: Code(s): E87.6 - Hypokalemia Status: Acute Assessment and Plan: Resolved. Likely due to IV diuretics Magnesium levels are within normal limits Monitored and replaced as appropriate (5) Obstructive sleep apnea on CPAP: Code(s): G47.33 - Obstructive sleep apnea (adult) (pediatric); Z99.89 - Dependence on other enabling machines and devices Status: Acute Assessment and Plan: CPAP will be provided for the patient to use while hospitalized. (6) Hypertension: Code(s): I10 - Essential (primary) hypertension Status: Acute Assessment and Plan: Blood pressures reviewed and were initially elevated with diastolic BP in the 100s to 110s. Improved with diuresis. stable Continue to monitor blood pressure trends and adjust antihypertensives as needed (7) Elevated LFTs: Code(s): R79.89 - Other specified abnormal findings of blood chemistry Status: Acute Assessment and Plan: Mildly elevated and noted on previous labs. Hepatitis panel negative RUQ ultrasound unremarkable LFTs trending down. Continue to monitor Subjective Date/time seen: 04/05/21 08:22 Interval history: Antonella Lugo is a 51-year-old female with a history of paroxysmal atrial fibrillation on chronic anticoagulation, YAQUELIN on CPAP, systolic CHF, and hypertension who is seen in follow-up for atrial fibrillation with rapid ventricular response and acute on chronic CHF exacerbation. Pt still feeling good with no complaints. No cp, sob, dizziness, palpitations. Still working on figuring out insurance issues for cardiology follow up. [place]
--- NOTE | 2021-04-05 10:44 | PM.PNCARD ---
Progress Note: A&P Assessment and Plan (1) Atrial fibrillation with rapid ventricular response: Code(s): I48.91 - Unspecified atrial fibrillation Status: Acute Assessment and Plan: Very difficult clinical circumstances, refractory A. Fib with RVR unable to CV due to JERRY thrombus limited more definitive management options. Heart rate remains rapid at times given severe LV dysfunction EF 20-25%. She is not currently aware of her atrial fibrillation. She gradually became worse with decompensated heart failure found to be in AFib with RVR presentation. -unfortunately, given presence of loosely organized left atrial appendage thrombus unable to proceed with electrical cardioversion with MALLY. Rate control strategy being pursued, but HR elevated up to the 130s but is asymptomatic. Medical options limited given LV dysfunction somewhat limited. Very reluctant to add any other antiarrhythmic therapy such as Digoxin to Sotalol and high dose BB, reluctant to increase Sotalol given concomitant BB, LV dysfunction, uncertain outpt follow up with Cardiology as yet due to insurance. Avoidance of CCB such as Diltiazem also advised given severe LV dysfunction, CHF and risks assoc with Sotalol and BB, but HR control is not optimal. - Increase Metoprolol XL to 150mg daily. Will give additional total 25mg to equal 150 mg total. today and observe. This has been an aggressive increase, I have expressed my concerns about overly zealous changes but risk vs benefit is in her favor to better control her HR as she tolerates. She is well compensated but suboptimal HR control places her at increased risk for decompensated HF. Observe response with recommendations to follow. (2) Thrombus of left atrial appendage: Code(s): I51.3 - Intracardiac thrombosis, not elsewhere classified Status: Acute Assessment and Plan: Unable to cardiovert secondary loosely organized left atrial appendage thrombus. Continue systemic anticoagulation without interruption. Consider outpatient re-evaluation in 4 weeks on MALLY if patient remains in atrial fibrillation. Previously we over told she is Unable to have outpatient cardiology follow-up with our office because of insurance barriers. Her primary care provider was called and updated her on events of this hospitalization and the patient's need for outpatient Cardiology follow-up. Primary care office is to assist patient in finding a manganese heater to she can follow with as an outpatient. I talked to the patient regarding the importance of following up with this because of her new medications in particular sotalol and anticoagulation. She will need periodically EKGs as an outpatient for QTC monitoring. -Repeat 12 lead EKG today. (3) Acute on chronic HFrEF (heart failure with reduced ejection fraction): Code(s): I50.23 - Acute on chronic systolic (congestive) heart failure Status: Acute Assessment and Plan: As above, likely combination of LV dysfunction and uncontrolled atrial fibrillation. Not exhibiting any signs or symptoms of decompensated heart failure at this point. Continue medical therapy with Entresto, spironolactone, beta-kelsie, furosemide. As above, she does need to establish care with a manganese heater to follow and optimize her GDMT for HFrEF. Compensated heart failure with reduced ejection fraction. Continue Entresto, spironolactone, Lasix 40 mg daily. (4) Nonischemic cardiomyopathy: Code(s): I42.8 - Other cardiomyopathies Status: Acute Assessment and Plan: -EF 20-25% worse than previously noted. At some point she should undergo an ischemic evaluation as an outpatient to rule out ischemic etiology of her cardiomyopathy. Continue medical therapy as above. We have also previously discussed ICD implantation indications for primary prophylaxis for SCD and referral to EP in consideration as well as an outpatient. She udnerstands She declined LifeVest
--- NOTE | 2021-04-05 10:47 | ECG_ITS ---
Measurements Intervals [place] Rate: 102 P: [place]: 0 QRS: 121 QRSD: 97 T: -41 QT: 373 QTc: 487 Interpretive Statements ATRIAL FIBRILLATION WITH RAPID VENTRICULAR RESPONSE RIGHT AXIS DEVIATION ANTEROSEPTAL INFARCT, AGE INDETERMINATE BORDERLINE T WAVE ABNORMALITY- DIFFUSE LEADS ABNORMAL ECG Electronically Signed On 04-05-2021 16:21:18 DOLPHIN TRAINER by James Keller D.O.
[2021-04-05] MEDS: METOPROLOL SUCCINATE EXT REL 25 MG TABCR PO (12:14)
[2021-04-06] VITALS (8 sets, daily range): BP systolic 102; BP diastolic 67–81; PULSE 67–114; RESP 16; TEMP 36.4; O2SAT 100
--- NOTE | 2021-04-06 08:21 | P.PNIM_ITS ---
Progress Note: A&P Assessment and Plan (1) Atrial fibrillation with rapid ventricular response: Code(s): I48.91 - Unspecified atrial fibrillation Status: Acute Assessment and Plan: On presentation tachycardic in the 100s-110s. * Rate improved with IV diltiazem 10 mg x 1. * She has likely been in AFib for the last several weeks given symptomatology, she reported being acutely ill at the end of February with symptom onset at that time * She does have history of cardioversion in September 2020 * At this time she has opted to proceed with medical therapy for atrial fibrillation control * Initiated on sotalol * Metoprolol was discontinued * Continue Eliquis for stroke prophylaxis * Heart rate continues to be rapid - per cardiology given uncontrolled heart rate will plan for MALLY guided cardioversion with Anesthesiology per her request and high risk due to severe LV dysfunction EF 20 25%. Continue systemic anticoagulation without interruption. * MALLY showed loosely organized thrombus within the left atrial appendage so cardioversion was not completed * Dr. Cole added toprol 25 mg daily and will continue to uptitrate as tolerated for HR control. * Still elevated in the 120s on telemetry despite additional toprol * Spoke to Dr. Cole, he now has her up to 125 mg Metoprolol. * Still with suboptimal HR control. Further adjustments per cardiology. Still working on figuring out follow up with her insurance issues as this will be imperative for her to have close follow up. * Continue to monitor on telemetry (2) CHF exacerbation: Code(s): I50.9 - Heart failure, unspecified Status: Acute Assessment and Plan: Likely due to AFib/RVR. * Appreciate cardiology consultation * Continue Lasix 20 mg IV b.i.d. * Continue spironolactone * Continue losartan * Discontinue losartan in favor of Entresto 24/26 mg twice daily with 36 hour washout to begin AM 04/02/21. * Echo shows severe LV dysfunction EF 20-25% (3) Chest tightness: Code(s): R07.89 - Other chest pain Status: Acute Assessment and Plan: Likely related to AFib/RVR * Resolved. No anginal symptoms * Acute coronary syndrome ruled out by serial troponins * Appreciate cardiology consultation (4) Hypokalemia: Code(s): E87.6 - Hypokalemia Status: Acute Assessment and Plan: Resolved. * Likely due to IV diuretics * Magnesium levels are within normal limits * Monitored and replaced as appropriate (5) Obstructive sleep apnea on CPAP: Code(s): G47.33 - Obstructive sleep apnea (adult) (pediatric); Z99.89 - Dependence on other enabling machines and devices Status: Acute Assessment and Plan: CPAP will be provided for the patient to use while hospitalized. (6) Hypertension: Qualifiers: Hypertension type: primary hypertension Qualified Code(s): I10 - Essential (primary) hypertension Code(s): I10 - Essential (primary) hypertension Status: Acute Assessment and Plan: Blood pressures reviewed and were initially elevated with diastolic BP in the 100s to 110s. * Improved with diuresis. * stable * Continue to monitor blood pressure trends and adjust antihypertensives as needed (7) Elevated LFTs: Code(s): R79.89 - Other specified abnormal findings of blood chemistry Status: Acute Assessment and Plan: Resolved Mildly elevated and noted on previous labs. * Hepatitis panel negative * RUQ ultrasound unremar
--- NOTE | 2021-04-06 08:21 | PM.IMPN ---
Progress Note: A&P Assessment and Plan (1) Atrial fibrillation with rapid ventricular response: Code(s): I48.91 - Unspecified atrial fibrillation Status: Acute Assessment and Plan: On presentation tachycardic in the 100s-110s. Rate improved with IV diltiazem 10 mg x 1. She has likely been in AFib for the last several weeks given symptomatology, she reported being acutely ill at the end of February with symptom onset at that time She does have history of cardioversion in September 2020 At this time she has opted to proceed with medical therapy for atrial fibrillation control Initiated on sotalol Metoprolol was discontinued Continue Eliquis for stroke prophylaxis Heart rate continues to be rapid - per cardiology given uncontrolled heart rate will plan for MALLY guided cardioversion with Anesthesiology per her request and high risk due to severe LV dysfunction EF 20 25%. Continue systemic anticoagulation without interruption. MALLY showed loosely organized thrombus within the left atrial appendage so cardioversion was not completed Dr. Cole added toprol 25 mg daily and will continue to uptitrate as tolerated for HR control. Still elevated in the 120s on telemetry despite additional toprol Spoke to Dr. Cole, he now has her up to 125 mg Metoprolol. Still with suboptimal HR control. Further adjustments per cardiology. Still working on figuring out follow up with her insurance issues as this will be imperative for her to have close follow up. Continue to monitor on telemetry (2) CHF exacerbation: Code(s): I50.9 - Heart failure, unspecified Status: Acute Assessment and Plan: Likely due to AFib/RVR. Appreciate cardiology consultation Continue Lasix 20 mg IV b.i.d. Continue spironolactone Continue losartan Discontinue losartan in favor of Entresto 24/26 mg twice daily with 36 hour washout to begin AM 04/02/21. Echo shows severe LV dysfunction EF 20-25% (3) Chest tightness: Code(s): R07.89 - Other chest pain Status: Acute Assessment and Plan: Likely related to AFib/RVR Resolved. No anginal symptoms Acute coronary syndrome ruled out by serial troponins Appreciate cardiology consultation (4) Hypokalemia: Code(s): E87.6 - Hypokalemia Status: Acute Assessment and Plan: Resolved. Likely due to IV diuretics Magnesium levels are within normal limits Monitored and replaced as appropriate (5) Obstructive sleep apnea on CPAP: Code(s): G47.33 - Obstructive sleep apnea (adult) (pediatric); Z99.89 - Dependence on other enabling machines and devices Status: Acute Assessment and Plan: CPAP will be provided for the patient to use while hospitalized. (6) Hypertension: Qualifiers: Hypertension type: primary hypertension Qualified Code(s): I10 - Essential (primary) hypertension Code(s): I10 - Essential (primary) hypertension Status: Acute Assessment and Plan: Blood pressures reviewed and were initially elevated with diastolic BP in the 100s to 110s. Improved with diuresis. stable Continue to monitor blood pressure trends and adjust antihypertensives as needed (7) Elevated LFTs: Code(s): R79.89 - Other specified abnormal findings of blood chemistry Status: Acute Assessment and Plan: Resolved Mildly elevated and noted on previous labs. Hepatitis panel negative RUQ ultrasound unremarkable LFTs trending down. Continue to monitor Subjective Date/time seen: 04/06/21 08:21 Interval history: Antonella Lugo is a 51-year-old female with a history of paroxysmal atrial fibrillation on chronic anticoagulation, YAQUELIN on CPAP, systolic CHF, and hypertension who is seen in follow-up for atrial fibrillation with rapid ventricular response and acute on chronic CHF exacerbation. Pt still feeling good with no complaints. No cp, sob, dizziness, palpita
[2021-04-06] MEDS: SOTALOL HCL 80 MG TABLET PO (08:31)
[2021-04-06] MEDS: APIXABAN 5 MG TABLET PO (08:32)
[2021-04-06] MEDS: LORATADINE 10 MG TABLET PO (08:32)
[2021-04-06] MEDS: FLUTICASONE PROPIONATE 0.05% NA SPR 16 GM BTL (*BKC) 2 SPRAY NASAL (08:32)
[2021-04-06] MEDS: METOPROLOL SUCCINATE EXT REL 50 MG TABCR 150 MG PO (08:32)
[2021-04-06] MEDS: FUROSEMIDE 40 MG TABLET PO (08:32)
[2021-04-06] MEDS: SPIRONOLACTONE 25 MG TABLET PO (08:32)
[2021-04-06] MEDS: SACUBITRIL/VALSARTAN 24-26 MG TABLET 1 TAB PO (08:32)
--- NOTE | 2021-04-06 09:11 | PM.PNCARD ---
Progress Note: A&P Assessment and Plan (1) Atrial fibrillation with rapid ventricular response: Code(s): I48.91 - Unspecified atrial fibrillation Status: Acute Assessment and Plan: Very difficult clinical circumstances, refractory A. Fib with RVR unable to CV due to JERRY thrombus limited more definitive management options. Heart rate remains rapid at times given severe LV dysfunction EF 20-25%. She is not currently aware of her atrial fibrillation. Unfortunately, given presence of loosely organized left atrial appendage thrombus unable to proceed with electrical cardioversion with MALLY. Rate control strategy being pursued, but HR elevated up to the 130s but is asymptomatic. Medical options limited given LV dysfunction somewhat limited. Very reluctant to add any other antiarrhythmic therapy such as Digoxin to Sotalol and high dose BB, reluctant to increase Sotalol given concomitant BB, LV dysfunction, uncertain outpt follow up with Cardiology as yet due to insurance. Avoidance of CCB such as Diltiazem also advised given severe LV dysfunction, CHF and risks assoc with Sotalol and BB, but HR control is not optimal. -Continue Metoprolol XL to 150mg daily. Slight improvement in HR control with this increase. She is well compensated but suboptimal HR control places her at increased risk for decompensated HF. Nonetheless, given that she remains asymptomatic and limited options for rate control as discussed above, she can be discharged home today with very close follow up as an outpatient. (2) Thrombus of left atrial appendage: Code(s): I51.3 - Intracardiac thrombosis, not elsewhere classified Status: Acute Assessment and Plan: Unable to cardiovert secondary loosely organized left atrial appendage thrombus. Continue systemic anticoagulation without interruption. Consider outpatient re-evaluation in 4 weeks on MALLY if patient remains in atrial fibrillation. She is unable to follow up with our office as an outpatient due to insurance barriers. Her insurance is acccepted by Dr. Keller's office - I have called them to arrange follow up for her. She will need periodically EKGs as an outpatient for QTC monitoring. (3) Acute on chronic HFrEF (heart failure with reduced ejection fraction): Code(s): I50.23 - Acute on chronic systolic (congestive) heart failure Status: Acute Assessment and Plan: As above, likely combination of LV dysfunction and uncontrolled atrial fibrillation. Not exhibiting any signs or symptoms of decompensated heart failure at this point. Continue medical therapy with Entresto, spironolactone, beta-kelsie, furosemide. As above, she does need to establish care with a infrastructure software engineer to follow and optimize her GDMT for HFrEF. Compensated heart failure with reduced ejection fraction. Continue Entresto, spironolactone, Lasix 40 mg daily. (4) Nonischemic cardiomyopathy: Code(s): I42.8 - Other cardiomyopathies Status: Acute Assessment and Plan: -EF 20-25% worse than previously noted. At some point she should undergo an ischemic evaluation as an outpatient to rule out ischemic etiology of her cardiomyopathy. Continue medical therapy as above. We have also previously discussed ICD implantation indications for primary prophylaxis for SCD and referral to EP in consideration as well as an outpatient. She udnerstands She declined LifeVest for protection given risk of sudden cardiac due to VT/VF unfortunately. She understands she is at elevated risk for SCD and accepts this risk. (5) YAQUELIN (obstructive sleep apnea): Code(s): G47.33 - Obstructive sleep apnea (adult) (pediatric) Status: Acute Assessment and Plan: Continue CPAP treatment. (6) Hypertension: Qualifiers: Hypertension type: primary hypertension Qualified Code(s): I10 - Essential (primary) hypertension Code(s): I10 - Essential (primary) hypertension
--- NOTE | 2021-04-06 10:29 | PCNWS ---
Weekly nutritional screen. Patient is tolerating current diet with adequate intake. No weight loss reported. No nutritional needs at this time.
--- NOTE | 2021-04-06 12:39 | P.DS_ITS ---
DS: Admitting Diagnosis Discharge Date 04/06/21 Admitting Diagnosis afib rvr DS: Discharge Diagnosis Discharge Diagnosis (1) Atrial fibrillation with rapid ventricular response: Code(s): I48.91 - Unspecified atrial fibrillation Status: Acute Assessment and Plan: On presentation tachycardic in the 100s-110s. * Rate improved with IV diltiazem 10 mg x 1. * She has likely been in AFib for the last several weeks given symptomatology, she reported being acutely ill at the end of February with symptom onset at that time * She does have history of cardioversion in September 2020 * Initially she opted to proceed with medical therapy for atrial fibrillation control * Initiated on sotalol * Metoprolol was discontinued * Continue Eliquis continued for stroke prophylaxis * Heart rate continued to be rapid - per cardiology given uncontrolled heart rate will plan for MALLY guided cardioversion with Anesthesiology per her request and high risk due to severe LV dysfunction EF 20 25%. Continued systemic anticoagulation without interruption. * MALLY showed loosely organized thrombus within the left atrial appendage so cardioversion was not completed * Dr. Cole added toprol 25 mg daily and will continued to uptitrate as tolerated for HR control. She is currently up to 125 mg. * Still with suboptimal HR control however per cardiology, she remains asymptomatic and limited options for rate control as discussed above, she can be discharged home today with very close follow up as an outpatient. * We have left messages for Dr. Keller's office who will take her insurance. All questions and concerns were addressed. (2) CHF exacerbation: Code(s): I50.9 - Heart failure, unspecified Status: Acute Assessment and Plan: Likely due to AFib/RVR. * Echo shows severe LV dysfunction EF 20-25% * Medications as per cardiology recommendations (3) Chest tightness: Code(s): R07.89 - Other chest pain Status: Acute Assessment and Plan: Likely related to AFib/RVR * Resolved. No anginal symptoms * Acute coronary syndrome ruled out by serial troponins * cardiology consultation (4) Hypokalemia: Code(s): E87.6 - Hypokalemia Status: Acute Assessment and Plan: Resolved. * Likely due to IV diuretics * Magnesium levels are within normal limits * Monitored and replaced as appropriate (5) Obstructive sleep apnea on CPAP: Code(s): G47.33 - Obstructive sleep apnea (adult) (pediatric); Z99.89 - Dependence on other enabling machines and devices Status: Acute Assessment and Plan: CPAP will be provided for the patient to use while hospitalized. (6) Hypertension: Qualifiers: Hypertension type: primary hypertension Qualified Code(s): I10 - Essential (primary) hypertension Code(s): I10 - Essential (primary) hypertension Status: Acute Assessment and Plan: Blood pressures reviewed and were initially elevated with diastolic BP in the 100s to 110s. * Improved with diuresis. * stable * Continue to monitor blood pressure trends and adjust antihypertensives as needed (7) Elevated LFTs: Code(s): R79.89 - Other specified abnormal findings of blood chemistry Status: Acute Assessment and Plan: Resolved Mildly elevated and noted on previous labs. * Hepatitis panel negative * RUQ ultrasound unremarkable * LFTs trending down. Continue to monitor DS: Summary
--- NOTE | 2021-04-06 12:39 | PM.DS ---
DS: Admitting Diagnosis Discharge Date 04/06/21 Admitting Diagnosis afib rvr DS: Discharge Diagnosis Discharge Diagnosis (1) Atrial fibrillation with rapid ventricular response: Code(s): I48.91 - Unspecified atrial fibrillation Status: Acute Assessment and Plan: On presentation tachycardic in the 100s-110s. Rate improved with IV diltiazem 10 mg x 1. She has likely been in AFib for the last several weeks given symptomatology, she reported being acutely ill at the end of February with symptom onset at that time She does have history of cardioversion in September 2020 Initially she opted to proceed with medical therapy for atrial fibrillation control Initiated on sotalol Metoprolol was discontinued Continue Eliquis continued for stroke prophylaxis Heart rate continued to be rapid - per cardiology given uncontrolled heart rate will plan for MALLY guided cardioversion with Anesthesiology per her request and high risk due to severe LV dysfunction EF 20 25%. Continued systemic anticoagulation without interruption. MALLY showed loosely organized thrombus within the left atrial appendage so cardioversion was not completed Dr. Cole added toprol 25 mg daily and will continued to uptitrate as tolerated for HR control. She is currently up to 125 mg. Still with suboptimal HR control however per cardiology, she remains asymptomatic and limited options for rate control as discussed above, she can be discharged home today with very close follow up as an outpatient. We have left messages for Dr. Keller's office who will take her insurance. All questions and concerns were addressed. (2) CHF exacerbation: Code(s): I50.9 - Heart failure, unspecified Status: Acute Assessment and Plan: Likely due to AFib/RVR. Echo shows severe LV dysfunction EF 20-25% Medications as per cardiology recommendations (3) Chest tightness: Code(s): R07.89 - Other chest pain Status: Acute Assessment and Plan: Likely related to AFib/RVR Resolved. No anginal symptoms Acute coronary syndrome ruled out by serial troponins cardiology consultation (4) Hypokalemia: Code(s): E87.6 - Hypokalemia Status: Acute Assessment and Plan: Resolved. Likely due to IV diuretics Magnesium levels are within normal limits Monitored and replaced as appropriate (5) Obstructive sleep apnea on CPAP: Code(s): G47.33 - Obstructive sleep apnea (adult) (pediatric); Z99.89 - Dependence on other enabling machines and devices Status: Acute Assessment and Plan: CPAP will be provided for the patient to use while hospitalized. (6) Hypertension: Qualifiers: Hypertension type: primary hypertension Qualified Code(s): I10 - Essential (primary) hypertension Code(s): I10 - Essential (primary) hypertension Status: Acute Assessment and Plan: Blood pressures reviewed and were initially elevated with diastolic BP in the 100s to 110s. Improved with diuresis. stable Continue to monitor blood pressure trends and adjust antihypertensives as needed (7) Elevated LFTs: Code(s): R79.89 - Other specified abnormal findings of blood chemistry Status: Acute Assessment and Plan: Resolved Mildly elevated and noted on previous labs. Hepatitis panel negative RUQ ultrasound unremarkable LFTs trending down. Continue to monitor DS: Summary Hospital Course Reason for hospitalization: Antonella Lugo is a 51-year-old female with a history of paroxysmal atrial fibrillation on chronic anticoagulation, YAQUELIN on CPAP, systolic CHF, and hypertension who is seen in follow-up for atrial fibrillation with rapid ventricular response and acute on chronic CHF exacerbation. Please see HPI for further details. Hospital Course: Please see above for details of hospital course. Status at Discharge Cognitive/behavioral status at disch
== END 2021-04-06 17:00 | disposition home or self-care (01) | DRG 201 ==
LOC: ANHED 08:48 → ANH2MED 13:00
PROVIDERS: Internal Medicine Cardiovascular Disease; Physician Assistant; Admitting Provider Family Medicine; Emergency Provider Emergency Medicine; PCP Physician Assistant; Visit Provider Physician Assistant
PROC: B24BZZ4 Ultrasonography of Heart with Aorta, Transesophageal (ICD-10-PCS; CPT 93312; principal; 2021-04-01 13:30)
DX: I48.91 Unspecified atrial fibrillation (principal); I50.23 Acute on chronic systolic (congestive) heart failure; I11.0 Hypertensive heart disease with heart failure; I42.8 Other cardiomyopathies; I51.3 Intracardiac thrombosis, not elsewhere classified; Z20.822 Contact with and (suspected) exposure to COVID-19; R07.89 Other chest pain; E87.6 Hypokalemia; R79.89 Other specified abnormal findings of blood chemistry; G47.33 Obstructive sleep apnea (adult) (pediatric); Z99.89 Dependence on other enabling machines and devices; Z79.01 Long term (current) use of anticoagulants; Z79.899 Other long term (current) drug therapy
CPT/HCPCS: 36415; 71046; 76705; 80048; 80053; 80061; 80074; 83690; 83735; 83880; 84439; 84443; 84480; 84484; 85025; 85027; 85610; 85730; 93005; 93306; 93312; 93320; 93325; 96374; 96375; 96376; 99285; A9270; C9803; G0378; G0379; J1940; J2704; J7040; U0003; U0005

== ENCOUNTER 2021-04-26 10:22 | Outpatient (CLI) | payer BC, SELFPAY ==
--- NOTE | 2021-04-26 | ECG_ITS ---
Measurements Intervals [place] Rate: 116 P: [place]: 0 QRS: 115 QRSD: 91 T: -66 QT: 348 QTc: 484 Interpretive Statements ATRIAL FIBRILLATION WITH RAPID VENTRICULAR RESPONSE VENTRICULAR PREMATURE COMPLEX RIGHT AXIS DEVIATION DELAYED PRECORDIAL R/S TRANSITION BORDERLINE T WAVE ABNORMALITY- ANTEROLAT/INF LEADS ABNORMAL ECG Electronically Signed On 04-26-2021 13:19:01 ASSEMBLY LINE WORKER by James Keller D.O.
== END 2021-04-26 10:23 | disposition home or self-care (01) ==
LOC: ANHCARD 10:28
PROVIDERS: PCP Physician Assistant; Visit Provider Physician Assistant
DX: I48.91 Unspecified atrial fibrillation (principal); R94.31 Abnormal electrocardiogram [ECG] [EKG]
CPT/HCPCS: 93005

== ENCOUNTER 2021-04-28 09:26 | Emergency (ER) | payer BC, SELFPAY ==
[2021-04-28] VITALS (9 sets, daily range): BP systolic 113–138; BP diastolic 83–107; PULSE 75–108; RESP 15–24; TEMP 37; O2SAT 93–99
--- NOTE | ~2021-04-28 | XR_ITS ---
EXAMINATION: XR chest 2V 04/28/2021 10:25 INDICATION: Chest palpitations PROCEDURE: 2 view chest COMPARISON: 03/29/2021 FINDINGS: The lungs are clear. Interval resolution of bilateral infiltrates. The cardiomediastinal si lhouette is within normal limits. There are no pleural effusions. There is no pneumothorax suspecte d. IMPRESSION: 1: NO ACUTE CARDIOPULMONARY DISEASE. Reviewed, dictated and finalized at location B. FEEDER
--- NOTE | 2021-04-28 09:41 | ECG_ITS ---
Measurements Intervals [place] Rate: 118 P: [place]: 0 QRS: 130 QRSD: 92 T: -35 QT: 349 QTc: 490 Interpretive Statements ATRIAL FIBRILLATION WITH RAPID VENTRICULAR RESPONSE RIGHT AXIS DEVIATION CANNOT RULE OUT SEPTAL INFARCT, AGE INDETERMINATE NONSPECIFIC ST & T-WAVE ABNORMALITY- ANTEROLAT/INF LEADS ABNORMAL ECG Electronically Signed On 04-28-2021 10:57:35 GUIDE DOG TRAINER by James Keller D.O.
[2021-04-28 10:14] LABS: Basophils Percent Auto 0.4 % (0.2-1.2); Eosinophils Absolute Auto 0.1 K/mm3 (0-0.3); Eosinophils Percent Auto 0.8 % (0-4.4); Hematocrit 42.3 % (37.0-47.0); Hemoglobin 13.9 g/dL (12.0-15.0); Immature Granulocyte Absolute 0.03 K/mm3 (0.00-0.031); Immature Granulocyte Percent A 0.3 % (0-0.5); Lymphocytes Absolute Auto 2.19 K/mm3 (0.9-3.2); Lymphocytes Percent Auto 22.2 % (18.3-44.2); Mean Corpuscular HGB Conc 32.9 g/dl (32-36); Mean Corpuscular Hemoglobin 30.4 pg (26-34); Mean Corpuscular Volume 92.6 fl (80-100); Mean Platelet Volume 9.5 fl (7.4-10.4); Monocytes Absolute Auto 0.5 K/mm3 (0.1-0.6); Monocytes Percent Auto 5.5 % (2.6-8.5); Neutrophils Percent Auto 70.8 % (45.5-73.1); Platelet Count Result 272 k/mm3 (150-375); Red Blood Count 4.57 M/mm3 (4.2-5.4); Red Cell Distribution Width 14.9 % (11.5-14.5); White Blood Count 9.9 K/mm3 (4.5-10.0)
[2021-04-28 10:25] LABS: INR 1.4; Prothrombin Time 16.9 Seconds (11.1-14.7)
[2021-04-28 10:26] LABS: Partial Thromboplastin Time 34.3 SECONDS (22.3-36.8)
[2021-04-28 10:27] LABS: Alanine Aminotransferase 32 U/L (4-35); Alkaline Phosphatase 99 U/L (38-126); Anion Gap 9 mmol/L (8-16); Aspartate Amino Transferase 44 U/L (14-36); Bilirubin,Total 1.2 mg/dL (0.2-1.3); Blood Urea Nitrogen 19 mg/dL (7-17); Calcium 9.3 mg/dL (8.4-10.2); Carbon Dioxide 25 mmol/L (22-30); Chloride 107 mmol/L (98-107); Estimated CRCL calculation 69 ml/min; Estimated Glomerular Filt Rate 57; Glucose 114 mg/dL (65-110); Potassium 3.5 mmol/L (3.4-5.0); Sodium 141 mmol/L (137-145)
[2021-04-28] MEDS: dilTIAZem HCl INJ 25 MG/5 ML VIAL 10 MG IV PUSH (10:31)
[2021-04-28 10:38] LABS: NT Pro B Type Natriuretic Pept 5620 pg/mL (5-100); Troponin I < 0.012 ng/mL (0.000-0.034)
--- NOTE | 2021-04-28 11:32 | ED.ARRPALP ---
HPI - Arrhythmia/Palpitations General Chief Complaint: Arrhythmia/Palpitations Stated Complaint: Abnormal EKG Tuesday Time Seen by Provider: 04/28/21 09:54 History of Present Illness HPI narrative: Patient is a 51-year-old female who presents ER due to an abnormal EKG. Patient had an outpatient EKG performed over the weekend that showed A. fib with RVR. Patient has no palpitations. She does report exertional dyspnea. No chest pain or chest pressure. Known heart failure. Takes sotalol for her A. fib. Reports compliance with all medications. No fever chills or sweats. Related Data Home Medications Medication Instructions Recorded Confirmed One-A-Day Women VitaCraves 1 tablet PO DAILY 09/20/20 03/29/21 Allergies Allergy/AdvReac Type Severity Reaction Status Date / Time No Known Allergies Allergy Verified 11/13/20 18:20 Review of Systems Review of Systems: All systems reviewed & are unremarkable except as noted in HPI and below Constitutional: Constitutional: Denies chills, Denies fever(s) and Denies weakness ENT: Denies nasal congestion and Denies sore throat Cardiovascular: Cardiovascular: Denies chest pain, Reports rapid heart rate and Denies radiating jaw, neck or arm pain Respiratory: Respiratory: Denies cough, Reports dyspnea and Denies wheezing Gastrointestinal: Gastrointestinal: Denies abdominal pain, Denies nausea and Denies vomiting PMFSH Past Medical History Medical History Hypertension Obstructive sleep apnea on CPAP Paroxysmal atrial fibrillation Status post cardioversion in September 2020. Systolic congestive heart failure EF was 30 to 35% on TTE in September 2020 at time of cardioversion for atrial fibrillation. Surgical History Surgical History History of cardioversion (09/2020) For atrial fibrillation. History of dilation and curettage History of hysterectomy History of tubal ligation History of wisdom tooth extraction Family History Family History Other Carcinoma of colon Other Cerebrovascular accident Sibling Diabetes mellitus Mother Hypertension Social History Social History Social History: Lives in [place]. [employer] at [facility]. Lifelong nonsmoker. Occasional alcohol use in moderation. No illicit substance use. Surrogate decision maker: Lainey Lugo, mother. Code status: Full code. Exam Narrative: GENERAL: Well-appearing, well-nourished, and in no acute distress. HEAD: Normocephalic, atraumatic. ENT: Mucous membranes moist. NECK: Supple. CHEST: Clear to auscultation. No respiratory distress. HEART: Irregular regular rate and rhythm that is tachycardic. Normal peripheral pulses. ABDOMEN: Soft, nontender, nondistended. EXTREMITIES: Normal range of motion. Trace edema. SKIN: Warm, dry, no rash. NEURO: Alert and oriented x3. PSYCH: Normal mood and affect. Course Course Emergency Course: Heart rate improved. Discussed case with Dr. Keller. Recommends starting the patient on diltiazem to 40 mg daily. Patient aware of diagnosis and treatment plan. Encourage return to the ER if things are worsening or not improving. Patient verbalized understanding. Vital Signs Vital signs: Vital Signs Temperature 98.6 F 04/28/21 09:49 Pulse Rate 108 H 04/28/21 09:49 Respiratory Rate 16 04/28/21 09:49 Blood Pressure 124/95 H 04/28/21 09:49 Pulse Oximetry 95 04/28/21 09:49 Temperature 98.6 F 04/28/21 09:49 Pulse Rate 93 04/28/21 12:01 Respiratory Rate 24 H 04/28/21 12:01 Blood Pressure 138/97 H 04/28/21 12:01 Pulse Oximetry 98 04/28/21 12:01 MDM - Arrhythmia/Palpitations Lab Data Result diagrams: 04/28/21 10:07 04/28/21 10:07 Labs: Lab Results 04/28/21 04/28/21 04/28/21 Range/U
[2021-04-28] MEDS: FUROSEMIDE INJ 40 MG/4 ML VIAL 20 MG IV PUSH (11:40)
== END 2021-04-28 13:38 | disposition home or self-care (01) ==
PROVIDERS: Emergency Provider Emergency Medicine; PCP Physician Assistant
DX: I48.0 Paroxysmal atrial fibrillation (principal); I50.20 Unspecified systolic (congestive) heart failure; I11.0 Hypertensive heart disease with heart failure; G47.33 Obstructive sleep apnea (adult) (pediatric); Z79.01 Long term (current) use of anticoagulants; R94.31 Abnormal electrocardiogram [ECG] [EKG]
CPT/HCPCS: 36415; 71046; 80053; 83880; 84484; 85025; 85610; 85730; 93005; 96374; 96375; 99284; J1940

== ENCOUNTER 2021-05-29 08:28 | Outpatient (CLI) | payer BC, SELFPAY ==
--- NOTE | ~2021-05-29 | NM_ITS ---
EXAMINATION: NM justina stress w perfusion DATE: 05/29/2021 12:40 INDICATION: Systolic congestive heart failure TECHNIQUE: Rest images were obtained following intravenous administration of 10.3 mCi Tc99m tetrofosm in (Myoview). The patient was infused intravenously with Lexiscan (Regadenoson). Then, 30.6 mCi Tc99m tetrofosmin (Myoview) was administered intravenously, and stress images were obtained. Data was edson nstructed into short axis and horizontal and vertical long axis SPECT images. Gated SPECT images were also obtained. COMPARISON: None. FINDINGS: There is no definite reversible or fixed perfusion abnormality to suggest ischemia or infar ction. There is normal left ventricular chamber size and wall motion with borderline left ventricula r ejection fraction measuring 49%. IMPRESSION: 1. Normal myocardial perfusion at rest and during stress. 2. Left ventricular ejection fraction measuring 49%. Reviewed, dictated and finalized at location A.
--- NOTE | 2021-05-29 09:50 | EST_ITS ---
Patient Info Name: Antonella Lugo Age: 51 years : 1970 Gender: Female Ht: 71 in Wt: 228 lbs BSA: 2.31 m2 HR: 82 bpm BP: 130 / 94 mmHg Heart Rhythm: Sinus Rhythm Exam Date: 05/29/2021 10:08 AM Exam Location: [facility] Stress Patient Status: Outpatient Admit Date: 05/29/2021 Staff Ordering Physician: James Keller DO Attending Provider: James Keller DO Exercise Technologist: Ana Andrade CT Exercise Physician: James Keller DO Exam Type: CA stress justina w NM Study Info Indications I50.20 - Unspecified systolic (congestive) heart failure A regadenoson stress test was performed. Summary 1. 1. Negative lexiscan stress test for ischemic ST changes by ECG criteria. 2. 2. Stable hemodynamics throughout the test. 3. 3. Nuclear scan to follow and will be reported separately. Please correlate with it. 4. 4. Patient informed of the above results. Protocol: Lexiscan Stress ECG Details Stage: REST Duration (min): 1 min : 10 sec HR (bpm): 79 SBP (mmHg): 130 DBP (mmHg): 94 Stage: REST Duration (min): 6 min : 33 sec HR (bpm): 80 SBP (mmHg): 130 DBP (mmHg): 94 Stage: STAGE 1 Duration (min): 1 min : 0 sec HR (bpm): 90 SBP (mmHg): 132 DBP (mmHg): 104 Stage: RECOVERY Duration (min): 1 min : 0 sec HR (bpm): 97 SBP (mmHg): 132 DBP (mmHg): 104 Stage: RECOVERY Duration (min): 2 min : 0 sec HR (bpm): 96 SBP (mmHg): 132 DBP (mmHg): 104 Stage: RECOVERY Duration (min): 2 min : 59 sec HR (bpm): 93 SBP (mmHg): 119 DBP (mmHg): 100 Rest HR: 80 bpm Peak HR: 100 bpm Rest Sys BP: 130 mmHg Peak Sys BP: 132 mmHg Max Pred HR: 169 bpm % Max Pred HR: 59 % Target HR: 144 bpm Max RPP: 13,200 bpm*mmHg Termination Reason: Completed protocol Cardiac Symptoms: Shortness of breath Total Time: 1 min : 0 sec Rest Case BP: 94 mmHg Peak Case BP: 104 mmHg Total Dose: 0.4 mg Resting ECG Atrial fibrillation, cannot r/o septal infarct, age indeterminate. Stress ECG No ST changes. Arrhythmias None. Report Signatures
== END 2021-05-29 08:29 | disposition home or self-care (01) ==
LOC: ANHCARD 08:32
PROVIDERS: PCP Physician Assistant; Visit Provider Internal Medicine Cardiovascular Disease
DX: I50.20 Unspecified systolic (congestive) heart failure (principal)
CPT/HCPCS: 78452; 93017; A9502; J2785

== ENCOUNTER 2021-06-04 01:36 | Day surgery (SDC) | payer BC, SELFPAY ==
[2021-06-03 18:12] VITALS: BMI 31.9
[2021-06-04] VITALS (7 sets, daily range): BP systolic 139–153; BP diastolic 91–101; PULSE 49–70; RESP 11–20; TEMP 35.9; O2SAT 100; BMI 32.5
--- NOTE | 2021-06-04 | ECHO_ITS ---
Patient Info Name: Antonella Lugo Age: 51 years : 1970 Gender: Female Ht: 71 in Wt: 233 lbs BSA: 2.33 m2 HR: 78 bpm Exam Date: 06/04/2021 2:42 PM Exam Location: [facility] Patient Status: Outpatient Admit Date: 06/04/2021 Staff Ordering Physician: James Keller DO Gauge Checker: Jessica Flores RDCS Attending Provider: James Keller DO Exam Type: CA echo transesophageal Study Info Indications I48.1 - Persistent atrial fibrillation Procedure Details Risks/benefits/alternative treatment to MALLY discussed with patient and she gave informed consent. She is anesthetized as per anesthesiology service. MALLY probe advanced into esophagus without incident. Multiple images obtained at various levels of esophagus. MALLY probe withdrawn and no blood noted on MALLY probe tip. Patient tolerated procedure well with no complications. Summary 1. Transesophageal echocardiogram. 2. Left ventricular chamber dimension is severely enlarged. 3. Left ventricular systolic function is severely reduced with an estimated ejection fraction 20-25%. 4. There is mildly increased left ventricular wall thickness. 5. The left ventricular diastolic function is indeterminate. 6. Right ventricular chamber dimension is mildly enlarged. 7. Right ventricular systolic function is reduced. 8. Spontaneous echo contrast noted in left atrium. 9. Left atrial chamber dimension is severely enlarged. 10. There is mild mitral valve regurgitation. Left Ventricle Left ventricular systolic function is severely reduced with an estimated ejection fraction 20-25%. Transesophageal echocardiogram. Left ventricular chamber dimension is severely enlarged. There is mildly increased left ventricular wall thickness. The left ventricular diastolic function is indeterminate. Right Ventricle Right ventricular chamber dimension is mildly enlarged. Right ventricular systolic function is reduced. Left Atria Spontaneous echo contrast noted in left atrium. Left atrial chamber dimension is severely enlarged. Right Atria Right atrial chamber dimension is normal. Atrial Appendage Left atrial appendage is visualized in 2 orthogonal views. There is no thrombus visualized in the left atrial appendage. Aortic Valve The aortic valve is trileaflet. There is no aortic valve stenosis. There is no aortic valve regurgitation. Pulmonic Valve There is no pulmonic regurgitation. Mitral Valve There is no mitral valve stenosis. There is mild mitral valve regurgitation. Tricuspid Valve There is no tricuspid valve regurgitation. Pericardium/Pleural There is no pericardial effusion. Inferior Vena Cava Inferior vena cava is not well visualized. Aorta The aortic root size at the sinus of Valsalva is normal. Report Signatures
--- NOTE | 2021-06-04 12:30 | ECG_ITS ---
Measurements Intervals [place] Rate: 55 P: 54 [place]: 179 QRS: 11 QRSD: 90 T: -7 QT: 478 QTc: 459 Interpretive Statements SINUS BRADYCARDIA POSSIBLE LEFT ATRIAL ENLARGEMENT [-0.1mV P WAVE IN V1/V2] NONSPECIFIC T-WAVE ABNORMALITY BORDERLINE ECG COMPARED TO ECG 06/04/2021 13:21:01 SINUS BRADYCARDIA NOW PRESENT PROLONGED QT INTERVAL NO LONGER PRESENT Electronically Signed On 06-04-2021 15:57:01 CDT by Quinton Cole M.D.
--- NOTE | 2021-06-04 13:54 | WPDANESEPPF ---
Anes - Initial Pre Proc Eval Procedure: Operation Date: 06/04/21 14:30 Proposed Procedures p Trans Esophageal Echo - James Keller DO s Electrical Cardioversion - James Keller DO Date/Time: 06/04/21 13:54 Surgeon: James Keller DO Pre Op Diagnosis: a-fib unspecified Patient Data Age: 51 Gender: F Height: 1.8 m Weight: 106 kg Last Vital Signs Temp 96.6 F L 06/04/21 13:17 Pulse 70 06/04/21 13:17 Resp 14 06/04/21 13:17 BP 139/98 H 06/04/21 13:17 Pulse Ox 100 06/04/21 13:17 Allergies Allergy/AdvReac Type Severity Reaction Status Date / Time No Known Allergies Allergy Verified 06/04/21 13:16 Home Medications Medication Instructions Recorded Confirmed Type apixaban 5 mg tablet 5 mg PO Q12HR 30 Days #60 tablet 05/18/21 06/03/21 Rx diltiazem HCl 240 mg capsule,24 240 mg PO DAILY #30 cap 05/18/21 06/03/21 Rx hr,extended release furosemide 40 mg tablet 40 mg PO DAILY 30 Days #30 tablet 05/18/21 06/03/21 Rx metoprolol succinate 50 mg 150 mg PO QAM 30 Days #90 tablet 05/18/21 06/03/21 Rx tablet,extended release 24 hr sacubitril 24 mg-valsartan 26 mg 1 tablet PO Q12HR 30 Days #60 05/18/21 06/03/21 Rx tablet tablet sotalol 80 mg tablet 80 mg PO Q12HR 30 Days #60 tablet 05/18/21 06/03/21 Rx spironolactone 25 mg tablet 25 mg PO QAM 30 Days #30 tablet 05/18/21 06/03/21 Rx Laboratory Tests 06/04/21 06/04/21 13:12 13:15 Sodium Pending Potassium Pending Chloride Pending Carbon Dioxide Pending Anion Gap Pending BUN Pending Creatinine Pending Estim Creat Clear Calc Pending Estimated GFR Pending Glucose Pending Calcium Pending Magnesium Pending Patient hx anesthesia problems: none Family hx anesthesia problems: none Results Review: All pre-operative results and documents have been reviewed as part of the pre-operative evaluation. [facility] Past Medical History Medical History Hypertension Obstructive sleep apnea on CPAP Paroxysmal atrial fibrillation Status post cardioversion in September 2020. Systolic congestive heart failure EF was 30 to 35% on TTE in September 2020 at time of cardioversion for atrial fibrillation. Surgical History Surgical History History of cardioversion (09/2020) For atrial fibrillation. History of dilation and curettage History of hysterectomy History of tubal ligation History of wisdom tooth extraction Family History Family History Other Carcinoma of colon Other Cerebrovascular accident Sibling Diabetes mellitus Mother Hypertension Social History Social History Social History: Lives in [place]. [employer] at [facility]. Lifelong nonsmoker. Occasional alcohol use in moderation. No illicit substance use. Surrogate decision maker: Lainey Lugo, mother. Code status: Full code. Smoking packs per day: 0 Smoking cigarettes per day: 0.0 Years smoked: 0 Smoking pack-years: 0.00 Smoking status: Never smoker Alcohol intake: current Drinks per week: 1 Alcohol use details: RARE USE OF ALCHOHOL Substance use: never Substance use type: does not use Living arrangements: alone Spiritual care concerns: No Anes - Eval Final PreProcedure Day of Procedure 06/04/21 13:54 Patient weight: obese Heart: irregular rhythm Lungs: clear to auscultation Airway: Mallampati scale class II Neurological: alert and oriented Last oral intake: >/= 8 hours ASA classification: III Emergent: no Anesthetic plan: proceed Anesthesia type and monitoring: general GIVS and standard monitoring Results Review: All pre-operative results and documents have been reviewed as part of the pre-operative evaluation.
[2021-06-04 14:15] LABS: Anion Gap 4 mmol/L (8-16); Blood Urea Nitrogen 19 mg/dL (7-17); Calcium 9.1 mg/dL (8.4-10.2); Carbon Dioxide 33 mmol/L (22-30); Chloride 103 mmol/L (98-107); Estimated CRCL calculation 66 ml/min; Estimated Glomerular Filt Rate 57; Glucose 95 mg/dL (65-110); Magnesium 2.1 mg/dL (1.6-2.3); Potassium 4.2 mmol/L (3.4-5.0); Sodium 140 mmol/L (137-145)
--- NOTE | 2021-06-04 15:30 | ECG_ITS ---
Measurements Intervals [place] Rate: 67 P: TN: 0 QRS: 48 QRSD: 88 T: -9 QT: 461 QTc: 490 Interpretive Statements ATRIAL FIBRILLATION PROLONGED QT INTERVAL ABNORMAL ECG COMPARED TO ECG 04/28/2021 09:44:40 PROLONGED QT INTERVAL NOW PRESENT Electronically Signed On 06-04-2021 15:50:55 CDT by Quinton Cole M.D.
--- NOTE | 2021-06-04 15:38 | WPDTECDV ---
MALLY with Cardioversion Date of procedure: 06/04/21 Procedure Type: MALLY/DC cardioversion Indications: Symptomatic atrial fibrillation Description of Procedure: Risks/benefits/alternative treatment discussed with patient and she gave informed consent. Vitals monitored with BP 150/80 mmHg, atrial fib at 70 bpm, pulse ox >95%. Defibrillator pads placed on anterior and posterior chest. MALLY performed with no evidence of left atrial or left atrial appendage thrombus. DC Cardioversion with synchronized 200 J biphasic energy x 1 with successful church of sinus rhythm at 63 bpm. Sedation: Sedation as per anesthesiology service Conclusion: 1. Successful DC cardioversion from atrial fibrillation to Sinus rhythm.
--- NOTE | 2021-06-04 16:13 | SUR.PHASEII ---
i/v d/c tip intact. d/c instructions given to patient with mother at side. written instruction given to patient. patient instructed to d/c metoprolol and hold cardizem until her f/u appoitment with dr sarkar. patient instructed to call dr sarkar office to make f/u. patient verbalizes understanding and all questions and concerns addressed.
== END 2021-06-04 16:17 | disposition home or self-care (01) ==
PROVIDERS: Internal Medicine Cardiovascular Disease; PCP Physician Assistant; Visit Provider Internal Medicine Cardiovascular Disease
PROC: (CPT 93312; principal; 2021-06-04 14:30)
PROC: 5A2204Z Restoration of Cardiac Rhythm, Single (ICD-10-PCS; 2021-06-04 14:30)
DX: I48.0 Paroxysmal atrial fibrillation (principal); I11.0 Hypertensive heart disease with heart failure; I50.20 Unspecified systolic (congestive) heart failure; I51.3 Intracardiac thrombosis, not elsewhere classified; I34.0 Nonrheumatic mitral (valve) insufficiency; G47.33 Obstructive sleep apnea (adult) (pediatric); Z79.01 Long term (current) use of anticoagulants
CPT/HCPCS: 36415; 80048; 83735; 92960; 93312; 93320; 93325

== ENCOUNTER 2021-07-15 07:50 | Outpatient (CLI) | payer BC, SELFPAY ==
--- NOTE | ~2021-07-15 | MM_ITS ---
EXAMINATION: MM screening [facility] BI w darnell HISTORY: Screening TECHNIQUE: Craniocaudal and mediolateral oblique 3-D tomosynthesis images were obtained and synthetic 2-D images were generated. CAD analysis was submitted and interpreted. COMPARISON: 11/05/2011 BREAST PARENCHYMAL COMPOSITION: The breasts are heterogenously dense, which may obscure small masses FINDINGS: There are developing asymmetries in the subareolar location of the right breast and upper o uter quadrant of the left breast. There are no suspicious cluster of calcifications or focal architec tural distortion. IMPRESSION: 1. Developing bilateral breast asymmetries. 2. Additional mammographic views and possible breast ultrasound are recommended. BI-RADS Category 0: Incomplete: Needs additional imaging evaluation. Reviewed, dictated and finalized at location A. IMPRESSION: 1. Developing bilateral breast asymmetries. 2. Additional mammographic views and possible breast ultrasound are recommended . BI-RADS Category 0: Incomplete: Needs additional imaging evaluation.
== END 2021-07-15 07:51 | disposition home or self-care (01) ==
LOC: ANHIMG 07:52
PROVIDERS: PCP Physician Assistant; Visit Provider Physician Assistant
DX: Z12.31 Encounter for screening mammogram for malignant neoplasm of breast (principal)
CPT/HCPCS: 77063; 77067

== ENCOUNTER 2021-07-23 12:35 | Outpatient (CLI) | payer BC, SELFPAY ==
--- NOTE | ~2021-07-23 | MMUS_ITS ---
EXAMINATION: MM diagnostic [facility] BI w darnell, US breast BI limited HISTORY: Bilateral breast asymmetries on screening mammogram TECHNIQUE: Additional 3-D tomosynthesis images of the breasts were performed and synthetic 2-D images were generated. CAD analysis was submitted and interpreted. High resolution limited bilateral breast ultrasound was performed. COMPARISON: 07/15/2021, 11/05/2011 FINDINGS: MAMMOGRAPHIC FINDINGS: With spot compression, there appear to be mildly dilated ducts in the subareolar breasts. No suspicio us mass, calcification, or architectural distortion is identified. The asymmetry described in the upp er outer quadrant of the left breast does not persist with spot compression. ULTRASOUND: There are mildly dilated ducts in the subareolar aspect of the breasts without suspicious intralumina l mass identified. There is an 11 mm cyst at the 1:00 location in the left breast 5 cm from the nippl e. IMPRESSION: 1. No mammographic or sonographic evidence of malignancy. 2. Recommend routine screening mammography in one year. BI-RADS Category 2: Benign finding(s). Reviewed, dictated and finalized at location A. IMPRESSION: 1. No mammographic or sonographic evidence of malignancy. 2. Recommend routine screening mammography in one year. BI-RADS Category 2: Benign finding(s).
== END 2021-07-23 12:36 | disposition home or self-care (01) ==
LOC: ANHIMG 12:36
PROVIDERS: PCP Physician Assistant; Visit Provider Physician Assistant
DX: R92.8 Other abnormal and inconclusive findings on diagnostic imaging of breast (principal); N60.02 Solitary cyst of left breast
CPT/HCPCS: 76642; 77062; 77066; G0279

== ENCOUNTER 2021-09-06 08:24 | Emergency (ER) | payer BC, SELFPAY ==
[2021-09-06 08:34] VITALS: BP 152/109; PULSE 67; RESP 16; TEMP 36.6; O2SAT 99
--- NOTE | 2021-09-06 08:36 | ED.FEMALEGU ---
HPI - Female Genitourinary General Chief complaint: Urogenital-Female Stated complaint: vaginal irritation Time Seen by Provider: 09/06/21 08:36 Source: patient, RN notes reviewed and old records reviewed Mode of arrival: ambulatory Limitations: no limitations History of Present Illness HPI Narrative: 51-year-old female presents to the [facility] with complaints of vaginal irritation that started middle of last week. Patient reports having unprotected sex a week ago, 3 to 4 days later started with the vaginal irritation. Patient states that she is on a water pill but no new urinary symptoms. Denies abdominal pain or chest pain. Denies fevers. Patient reports having a concern for an STD Has a history of high blood pressure, reports taking her blood pressure medication just prior to arrival MD elicited complaint: vaginal discharge and possible STD Onset (ago): day(s) Female Urogenital Radiation: Non-Radiating Vaginal discharge: white Vaginal bleeding: none Related Data Home Medications Medication Instructions Recorded Confirmed diltiazem HCl 240 mg capsule,24 1 cap PO DAILY 09/06/21 09/06/21 hr,extended release Allergies Allergy/AdvReac Type Severity Reaction Status Date / Time No Known Allergies Allergy Verified 09/06/21 08:35 Review of Systems Review of Systems: All systems reviewed & are unremarkable except as noted in HPI and below Constitutional: Constitutional: Reports no additional constitutional complaints, Denies chills and Denies fatigue Eyes: Eyes: Reports no additional eye complaints ENT: Reports system reviewed and no additional complaints, except as documented Cardiovascular: Cardiovascular: Reports no additional cardiovascular complaints Respiratory: Respiratory: Reports no additional respiratory complaints Gastrointestinal: Gastrointestinal: Reports no additional gastrointestinal complaints, Denies abdominal pain, Denies diarrhea, Denies nausea and Denies vomiting Genitourinary: Genitourinary: Reports as per HPI (Vaginal irritation), Denies hematuria, Reports dysuria, Denies flank pain and Reports vaginal discharge Musculoskeletal: Musculoskeletal: Reports no additional musculoskeletal complaints and Denies back pain Integumentary/Breasts: Skin/Breast: Reports system reviewed and no additional complaints, except as docu Neurologic: Reports system reviewed and no additional complaints, except as documented Psychiatric: Psychiatric: Reports no additional psychiatric complaints Allergic/Immunologic: Allergic/Immunologic: Reports no additional allergic/immunologic complaints PMFSH Past Medical History Medical History Hypertension Obstructive sleep apnea on CPAP Paroxysmal atrial fibrillation Status post cardioversion in September 2020. Systolic congestive heart failure EF was 30 to 35% on TTE in September 2020 at time of cardioversion for atrial fibrillation. Surgical History Surgical History History of cardioversion (09/2020) For atrial fibrillation. History of dilation and curettage History of hysterectomy History of tubal ligation History of wisdom tooth extraction Family History Family History Other Carcinoma of colon Other Cerebrovascular accident Sibling Diabetes mellitus Mother Hypertension Social History Social History Social History: Lives in [place]. [employer] at [facility]. Lifelong nonsmoker. Occasional alcohol use in moderation. No illicit substance use. Surrogate decision maker: Lainey Lugo, mother. Code status: Full code. Smoking packs per day: 0 Smoking cigarettes per day: 0.0 Years smoked: 0 Smoking pack-years: 0.00 Smoking status: Never smoker Alcohol intake: current Drinks per week: 1 Alcohol use details: RARE U
[2021-09-06] MEDS: cefTRIAXone 500 MG, LIDOCAINE HCL 1% LOCAL INJ 1 ML IM (09:10)
== END 2021-09-06 09:23 | disposition home or self-care (01) ==
PROVIDERS: Emergency Provider Nurse Practitioner
DX: N76.0 Acute vaginitis (principal); Z11.3 Encounter for screening for infections with a predominantly sexual mode of transmission; I11.0 Hypertensive heart disease with heart failure; I50.20 Unspecified systolic (congestive) heart failure; I48.0 Paroxysmal atrial fibrillation
CPT/HCPCS: 81003; 87070; 87491; 87591; 87661; 96372; 99214; G0463; J0696

== ENCOUNTER 2021-09-16 09:39 | Outpatient (CLI) | payer BC, SELFPAY ==
--- NOTE | 2021-09-16 10:02 | ECHO_ITS ---
Patient Info Name: Antonella Lugo Age: 51 years : 1970 Gender: Female Ht: 71 in Wt: 250 lbs BSA: 2.42 m2 HR: 68 bpm BP: 134 / 100 mmHg Heart Rhythm: Sinus Rhythm Technical Quality: Good Exam Date: 09/16/2021 10:28 AM Exam Location: [facility] Patient Status: Outpatient Admit Date: 09/16/2021 Staff Ordering Physician: James Keller DO Office Director: Octavia Guerin RDCS Attending Provider: James Keller DO Referring Physician: Krishna GUZMÁN; Exam Type: CA echo dop color flow w con Study Info Indications - NONISCHEMIC CARDIOMYPATHY Complete two-dimensional, color flow and Doppler transthoracic echocardiogram is performed. Summary 1. Complete two-dimensional, color flow and Doppler transthoracic echocardiogram is performed. 2. Left ventricular chamber dimension is mildly enlarged. 3. Left ventricular systolic function is normal, estimated at 50-55%. 4. There is mildly increased left ventricular wall thickness. 5. The left ventricular diastolic function is grade I diastolic dysfunction. 6. E/e' 10 is mildly elevated. 7. Global longitudinal strain is mildly abnormal at -16.0%. 8. Left atrial chamber dimension is moderately enlarged. 9. There is trace mitral valve regurgitation. 10. There is trace tricuspid valve regurgitation. 11. No pulmonary hypertension, estimated pulmonary arterial systolic pressure is 22 mmHg. Left Ventricle E/e' 10 is mildly elevated. Global longitudinal strain is mildly abnormal at -16.0%. Left ventricular chamber dimension is mildly enlarged. Left ventricular systolic function is normal, estimated at 50-55%. There is mildly increased left ventricular wall thickness. The left ventricular diastolic function is grade I diastolic dysfunction. Right Ventricle Right ventricular systolic function is normal and with normal TAPSE 1.8 cm. Right ventricular chamber dimension is normal. Left Atria Left atrial chamber dimension is moderately enlarged. Right Atria Right atrial chamber dimension is normal. Aortic Valve The aortic valve is trileaflet. There is no aortic valve stenosis. There is no aortic valve regurgitation. Pulmonic Valve There is no pulmonic regurgitation. Mitral Valve There is no mitral valve stenosis. There is trace mitral valve regurgitation. Tricuspid Valve There is trace tricuspid valve regurgitation. No pulmonary hypertension, estimated pulmonary arterial systolic pressure is 22 mmHg. Pericardium/Pleural There is no pericardial effusion. Inferior Vena Cava Normal inferior vena cava with >50% collapse upon inspiration consistent with normal right atrial pressure, 5 mmHg. Aorta The aortic root size at the sinus of Valsalva is normal. Left Ventricular Outflow Tract Name Value Normal LVOT 2D LVOT Diameter 1.97 cm LVOT Doppler LVOT Peak Gradient 4 mmHg LVOT Mean Gradient 2 mmHg LVOT VTI 19.13 cm LVOT VTI/AV VTI Ratio 0.78 LVOT Stroke Volume 58.13 ml LVOT CO
== END 2021-09-16 09:40 | disposition home or self-care (01) ==
LOC: ANHCARD 09:40
PROVIDERS: Visit Provider Internal Medicine Cardiovascular Disease
DX: I42.8 Other cardiomyopathies (principal)
CPT/HCPCS: 93306

== ENCOUNTER 2021-11-21 10:42 | Outpatient (CLI) | payer BC, SELFPAY ==
--- NOTE | ~2021-11-21 | XR_ITS ---
EXAM: XR knee LT 3V DATE: 11/21/2021 11:08 HISTORY: increasing left knee pain x9 mo s/p fall . COMPARISON: None available. FINDINGS: Normal mineralization. No fracture or dislocation. No lytic or blastic lesion. Mild medial joint space narrowing. Mild tricompartmental osteophytosis. Quadriceps enthesopathy. No erosion or p eriosteal change. Soft tissues within normal limits. Trace left knee joint effusion. IMPRESSION: Mild degenerative changes, degenerative above. Reviewed, dictated and finalized at location K.
== END 2021-11-21 10:43 | disposition home or self-care (01) ==
LOC: ANHIMG 10:49
PROVIDERS: PCP Physician Assistant; Visit Provider Physician Assistant
DX: M17.12 Unilateral primary osteoarthritis, left knee (principal)
CPT/HCPCS: 73562